=== PATIENT | female | born 1985 | race Caucasian/White ===

== ENCOUNTER 2020-03-07 12:00 | Emergency (ER) | payer OTHER, SELFPAY ==
[2020-03-07 12:09] VITALS: BP 122/64; PULSE 71; RESP 14; TEMP 36.8; O2SAT 100
--- NOTE | 2020-03-07 12:12 | ED.URI ---
HPI - URI/Sore Throat General Chief Complaint: Upper Respiratory Infection Stated Complaint: Sore Throat Time Seen by Provider: 03/07/20 12:14 Source: patient and RN notes reviewed Mode of arrival: ambulatory Limitations: no limitations History of Present Illness HPI Narrative: This is a 34 years old female presented office for evaluation of sore throat for one week. Associated with a little headache. Denies cough or fever. Denies sick contact. Related Data Home Medications Medication Instructions Recorded Confirmed No Home Medications 03/07/20 03/07/20 Allergies Allergy/AdvReac Type Severity Reaction Status Date / Time Penicillins Allergy Intermediate Rash Verified 03/07/20 12:15 Review of Systems Review of Systems: Narrative: CONSTITUTIONAL: Denies fever, chills EYES: Denies visual changes, redness, discharge. ENT: Denies rhinorrhea, congestion, otalgia. CARDIOVASCULAR: Denies chest pain, palpitation, edema. RESPIRATORY: Denies dyspnea, wheezing, cough GASTROINTESTINAL: Denies abdominal pain, nausea, vomiting SKIN: Denies rash MUSCULOSKELETAL: Denies acute back pain NEUROLOGIC: Denies lightheaded All other systems reviewed are negative, except as documented in HPI. [facility] Past Medical History Medical History Diabetes mellitus, type II Sleep apnea Surgical History Surgical History Hx of cholecystectomy Hx of tubal ligation Comments At time of signature, I 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 There is no relevant family history pertinent to the presenting complaint. Exam Narrative: Exam Narrative: GENERAL: This is a well-nourished, well-developed patient, in no apparent distress. EARS: External ears normal, auditory canals clear and without drainage, TMs normal without perforation. Hearing grossly intact. NOSE: External nose normal with no obvious nasal discharge, nares without redness, no rhinorrhea. THROAT: Mucous membranes moist, posterior pharynx not erythema/edematous however there is drainage. NECK: Neck supple, non-tender without lymphadenopathy, masses or thyromegaly. CARDIOVASCULAR: Regular rate and rhythm without murmurs, gallops, or rubs. RESPIRATORY: Clear to auscultation. Breath sounds equal bilaterally. No wheezes, rales, or rhonchi. GASTROINTESTINAL: Abdomen soft, non-tender, nondistended. Bowel sounds are active. No hepato-splenomegaly, or palpable masses. No guarding. SKIN: warm, intact with no suspicious lesions or rash, good texture and turgor. NEURO: awake, alert, and oriented to person, place and time. There were no obvious focal neurologic abnormalities. Steady gait Abdifatah Coma Scale Eye Opening: Spontaneous 4 Alligator Coma Scale Motor: Obeys Commands 6 Abdifatah Coma Scale Verbal: Oriented 5 Course Vital Signs Vital signs: Vital Signs Temperature 98.2 F 03/07/20 12:09 Pulse Rate 71 03/07/20 12:09 Respiratory Rate 14 03/07/20 12:09 Blood Pressure 122/64 03/07/20 12:09 Pulse Oximetry 100 03/07/20 12:09 Temperature 98.2 F 03/07/20 12:09 Pulse Rate 71 03/07/20 12:09 Respiratory Rate 14 03/07/20 12:09 Blood Pressure 122/64 03/07/20 12:09 Pulse Oximetry 100 03/07/20 12:09 MDM - URI/Sore Throat MDM Narrative Medical decision making narrative: Discharge instructions reviewed with patient, as well as provided in writing per nursing staff. The instructions also include specific and strict return/GO TO THE ER as well as f/u information. All questions have been answered, and the patient deny any further questions with discharge and discharge plan. Differential Diagnosis Differential diagnosis: Likely upper respiratory infection, otitis media, sinusitis, viral infection, bronchitis, influenza and pharyngitis Lab Data Attestation: I reviewed the patient's lab results. Labs: Strep Screen
== END 2020-03-07 12:32 | disposition home or self-care (01) ==
PROVIDERS: Emergency Provider Nurse Practitioner; PCP Physician Assistant
DX: J02.9 Acute pharyngitis, unspecified (principal); E11.9 Type 2 diabetes mellitus without complications; G47.30 Sleep apnea, unspecified
CPT/HCPCS: 87081; 87880; 99213; G0463

== ENCOUNTER 2021-05-10 12:32 | Emergency (ER) | payer OTHER, SELFPAY ==
--- NOTE | ~2021-05-10 | XR_ITS ---
EXAMINATION: XR hand RT min 3V DATE: 05/10/2021 12:58 INDICATION: Right hand injury and pain. TECHNIQUE: 3 views of right hand were obtained. COMPARISON: None. FINDINGS: Bone alignment is normal. There is a nondisplaced chip avulsion fracture of palmar base of fifth middle phalanx. Joint spaces are well maintained. IMPRESSION: 1. Nondisplaced chip avulsion fracture of palmar base of fifth middle phalanx. Reviewed, dictated and finalized at location A.
[2021-05-10 12:40] VITALS: BP 131/82; PULSE 89; RESP 16; TEMP 36.9; O2SAT 100
[2021-05-10 12:52] VITALS: BP 131/82; PULSE 89; RESP 16; TEMP 36.9; O2SAT 100
--- NOTE | 2021-05-10 13:07 | ED.UPPEXIN ---
HPI - Extremity Injury (Upper) General Chief Complaint: Extremity Injury, Upper Stated Complaint: R hand/wrist injury Time Seen by Provider: 05/10/21 13:11 Source: patient History of Present Illness HPI narrative: Patient presents with pain and tenderness to the base of her right fifth finger. Patient states she was moving angling up yesterday her daughter's room in the lamp fell landing on her hand. No open areas no deformity noted. MD complaint: injury to: right Related Data Home Medications Medication Instructions Recorded Confirmed bupropion HCl 150 mg PO BID 05/10/21 05/10/21 Allergies Allergy/AdvReac Type Severity Reaction Status Date / Time Penicillins Allergy Intermediate Rash Verified 05/10/21 12:48 Review of Systems Review of Systems: CONSTITUTIONAL: Denies fever, chills, or sweats. EYES: Denies visual changes, redness, or discharge. ENT: Denies rhinorrhea, congestion, sore throat, or otalgia. CARDIOVASCULAR: Denies chest pain, palpitations, or edema. RESPIRATORY: Denies cough or dyspnea. GASTROINTESTINAL: Denies abdominal pain, nausea, vomiting, or diarrhea. GENITOURINARY: Denies dysuria or hematuria. SKIN: Denies rash or itching. MUSCULOSKELETAL: Denies back pain, joint pain, or myalgia. NEUROLOGIC: Denies headache, numbness, or weakness. PSYCHIATRIC: Denies anxiety or depression. [facility] Past Medical History Medical History (Updated 05/10/21 @ 13:21 by STACI Brown) Diabetes mellitus, type II Sleep apnea Surgical History Surgical History Hx of cholecystectomy Hx of tubal ligation Comments At time of signature, 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 There is no relevant family history pertinent to the presenting complaint Exam Narrative: GENERAL: Well-appearing, well-nourished, and in no acute distress. HEAD: Normocephalic, atraumatic. EYES: PERRLA and EOMI. ENT: Nares clear, no rhinorrhea or epistaxis. Mucous membranes moist. NECK: Supple. CHEST: Clear to auscultation. No respiratory distress. HEART: Regular rate and rhythm. No murmur heard. Normal peripheral pulses. ABDOMEN: Soft, nontender, nondistended, normal active bowel sounds. EXTREMITIES: Normal range of motion. No edema. bruising tenderness to base of fifth finger no open areas no deformity SKIN: Warm, dry, no rash. NEURO: No focal deficits. Alert and oriented x3. [place] Coma Scale Eye Opening: Spontaneous 4 Abdifatah Coma Scale Motor: Obeys Commands 6 Abdifatah Coma Scale Verbal: Oriented 5 [place] Coma Scale Total 15 Course Vital Signs Vital signs: Vital Signs Temperature 36.9 C 05/10/21 12:40 Pulse Rate 89 05/10/21 12:40 Respiratory Rate 16 05/10/21 12:40 Blood Pressure 131/82 05/10/21 12:40 Pulse Oximetry 100 05/10/21 12:40 Temperature 36.9 C 05/10/21 12:52 Pulse Rate 89 05/10/21 12:52 Respiratory Rate 16 05/10/21 12:52 Blood Pressure 131/82 05/10/21 12:52 Pulse Oximetry 100 05/10/21 12:52 My blood pressure follow Please CITLALI schedule a followup visit with your personal physician for further evaluation and treatment. Including recheck and discussion of your blood pressure. If your symptoms persist, change or worsen significantly before you can contact your personal physician then please, without delay, go to the emergency department for further evaluation DISCUSSED WITH PATIENT, X-RAY FINDINGS AND THAT X-RAYS WERE NEGATIVE FOR FRACTURE OR DISLOCATIONS. X-RAYS CANNOT RULE OUT TENDON, LIGAMENT, OR SOFT TISSUE STRUCTURE INJURIES AND IF SYMPTOMS PERSIST OR WORSEN, FURTHER EVALUATION MAY BE WARRANTED FOR POTENTIAL IMAGING. ADVISED REST, ICE, COMPRESSION, AND ELEVATION. IF PRESCRIBED ANY MEDICATIONS, TAKE DIRECTED. IF PRESCRIBED MUSCLE RELAXERS, DO NOT DRINK ALCOHOL, DRIVE, OR OPERATE ANY HEAVY MACHINERY WHILE TAKING. INSTRUCTED ON WHEN TO F/U WITH PCP AND CRITICAL RED FLAGS S/S DISCUSSED TO WHEN
== END 2021-05-10 13:28 | disposition home or self-care (01) ==
PROVIDERS: Emergency Provider Nurse Practitioner Family; PCP Physician Assistant
DX: S62.656A Nondisplaced fracture of middle phalanx of right little finger, initial encounter for closed fracture (principal); W20.8XXA Other cause of strike by thrown, projected or falling object, initial encounter; E11.9 Type 2 diabetes mellitus without complications; G47.30 Sleep apnea, unspecified
CPT/HCPCS: 29130; 73130; 99214; G0463

== ENCOUNTER 2021-10-14 21:48 | Emergency (ER) | payer OTHER, SELFPAY ==
--- NOTE | ~2021-10-14 | XR_ITS ---
EXAMINATION: XR hand LT 2V DATE: 10/14/2021 22:14 INDICATION: Left hand injury with pain at the first proximal interphalangeal joint TECHNIQUE: Posteroanterior and lateral views of the left hand were obtained. COMPARISON: None. FINDINGS: Alignment is normal. No fracture. Joint spaces are normal. Soft tissues are unremarkable. IMPRESSION: 1. Negative left hand radiographs. Reviewed, dictated and finalized at location A. RAL FARMER
[2021-10-14 21:59] VITALS: BP 139/80; PULSE 96; RESP 16; TEMP 36.8; O2SAT 99
--- NOTE | 2021-10-14 22:05 | WC.ED.TRAUMA ---
HPI - Trauma General Chief Complaint: Extremity Injury, Upper Stated Complaint: HAND INJURY Time Seen by Provider: 10/14/21 22:06 Source: patient and family Mode of arrival: ambulatory History of Present Illness HPI narrative: this is a 36-year-old female who presents with an injury to her left thumb while playing vial a ball with her daughter causing pain and swelling with bruising to the lateral aspect of her left thumb has good range of motion although mildly tender with movement and with palpation has a strong brisk radial pulse on the left with no deformity. complaint: injury Onset (ago): hour(s) Loss of Consciousness: no Location - Extremities: Left: hand ( left thumb injury) Severity: mild Severity scale (1-10): 2 Context: other ( while playing volleyball) Associated symptoms: denies other symptoms Related Data Home Medications Medication Instructions Recorded Confirmed bupropion HCl 150 mg PO BID 05/10/21 10/14/21 Allergies Allergy/AdvReac Type Severity Reaction Status Date / Time Penicillins Allergy Mild Rash Verified 10/14/21 22:09 Review of Systems Review of Systems: All systems reviewed & are unremarkable except as noted in HPI and below PMFSH Past Medical History Medical History Anxiety Chronic headaches Contusion of right hand Depression Diabetes Diabetes mellitus, type II Dizziness Sleep apnea Vertigo Vision loss Surgical History Surgical History Hx of cholecystectomy Hx of tubal ligation Family History Family History Other Depression Heart disease Social History Social History Smoking status: Never smoker Alcohol intake: current Substance use: unknown 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: General: alert Orientation/consciousness: patient oriented x3 HENMT: Head: normal to inspection Eyes: Conjunctivae: conjunctivae normal Pupils: Equal, round and reactive pupils present Chest: Chest palpation & inspection: normal inspection of the chest Resp: Effort & Inspection: normal respiratory effort GI: GI Palp: Yes Soft to palpation Percussion: Yes normal to percussion : General: Yes no CVA tenderness Back/Spine/Pelvis: Back: no CVA tenderness Skin: General skin exam: normal color Rashes: no rashes Neuro: General: patient oriented x3, moves all extremities, no meningeal signs and no focal motor deficits Extrem: General: normal to inspection and no pedal edema Psych: Appearance: grossly normal Mental Status: mental status grossly normal Affect: normal affect Course Course Emergency Course: Patient declined pain medication, x-ray of the left hand was performed and reviewed with patient. Vital Signs Vital signs: Vital Signs Temperature 36.8 C 10/14/21 21:59 Pulse Rate 96 10/14/21 21:59 Respiratory Rate 16 10/14/21 21:59 Blood Pressure 139/80 10/14/21 21:59 Pulse Oximetry 99 10/14/21 21:59 Temperature 36.8 C 10/14/21 21:59 Pulse Rate 96 10/14/21 21:59 Respiratory Rate 16 10/14/21 21:59 Blood Pressure 139/80 10/14/21 21:59 Pulse Oximetry 99 10/14/21 21:59 Critical Care Time Critical Care Time Critical Care Time: No Discharge Plan Discharge Clinical Impression: Left thumb sprain Qualifiers: Encounter type: initial encounter Sprain of finger site: metacarpophalangeal joint Qualified Code(s): S63.642A - Sprain of metacarpophalangeal joint of left thumb, initial encounter Patient Disposition: Home, Self-Care Condition: Stable Instructions: Antibiotic Form, Finger Sprain (ED) Additional Instructions: can use ice to affected area Tylenol or Motrin for pain inflammation and follow-up primary care physician if symptoms persi
[2021-10-14 22:46] VITALS: BP 123/69; PULSE 72; RESP 16; TEMP 36.7; O2SAT 99
== END 2021-10-14 22:47 | disposition home or self-care (01) ==
PROVIDERS: Emergency Provider Emergency Medicine; PCP Physician Assistant
DX: S63.642A Sprain of metacarpophalangeal joint of left thumb, initial encounter (principal); W22.8XXA Striking against or struck by other objects, initial encounter
CPT/HCPCS: 73120; 99283

== ENCOUNTER 2021-12-01 13:51 | Emergency (ER) | payer OTHER, SELFPAY ==
[2021-12-01 13:55] VITALS: BP 135/79; PULSE 82; RESP 14; TEMP 36.9; O2SAT 100
--- NOTE | 2021-12-01 14:03 | ED.SKABFB ---
HPI - Skin/Abscess/Foreign Bdy General Chief complaint: Skin/Abscess/Foreign Body Stated complaint: abcess on back Time Seen by Provider: 12/01/21 14:18 Source: patient and RN notes reviewed Mode of arrival: ambulatory Limitations: no limitations History of Present Illness HPI narrative: 36-year-old female presents concern for boil to her left low back. She reports she noticed the area 4 days ago and has had some drainage. She reports the area is tender. She denies fever, body aches, chills, sweats. Patient reports history of similar abscesses for which she has had to have drained. complaint: rash and abscess/boil Related Data Home Medications Medication Instructions Recorded Confirmed bupropion HCl 150 mg PO BID 05/10/21 12/01/21 Allergies Allergy/AdvReac Type Severity Reaction Status Date / Time No Known Allergies Allergy Verified 12/01/21 14:08 Review of Systems Review of Systems: CONSTITUTIONAL: Denies malaise, chills, sweats, or fever. CARDIOVASCULAR: Denies chest pain, palpitations, or edema. RESPIRATORY: Denies cough or dyspnea. GASTROINTESTINAL: Denies abdominal pain, nausea, vomiting SKIN: Reports boil to the left low back MUSCULOSKELETAL: Denies myalgia. NEUROLOGIC: Denies headache. 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 There is no relevant family history pertinent to the presenting complaint Exam Narrative: GENERAL: Well-appearing, well-nourished, and in no acute distress. HEAD: Normocephalic, atraumatic. EYES: PERRLA, conjunctivae clear, and EOMI. ENT: Mucous membranes moist. Oropharynx without edema, erythema or lesions. NECK: Supple. No lymphadenopathy CHEST: Clear to auscultation. No respiratory distress. HEART: Regular rate and rhythm. SKIN: Warm, dry. Approximately 2 cm raised erythematous papule, firm with a central scab noted to the left low back with approximately 6 cm of erythema and induration, approximately an additional 2 cm of induration, all areas tender. No fluctuation noted NEURO: Alert and oriented x3. PSYCH: Normal mood and affect Course Course Emergency Course: No fluctuation palpable, however the abscess is felt to be deep, will incise and attempt to drain. Patient is aware of diagnosis, understands and agrees to treatment plan. Anticipatory guidance given. Patient agrees to follow-up as directed and is aware of reasons to seek care at the emergency department. Portions of this record may have been created with voice recognition software Level of Care: Express Care Visit Vital Signs Vital signs: Vital Signs Temperature 98.4 F 12/01/21 13:55 Pulse Rate 82 12/01/21 13:55 Respiratory Rate 14 12/01/21 13:55 Blood Pressure 135/79 12/01/21 13:55 Pulse Oximetry 100 12/01/21 13:55 Temperature 98.4 F 12/01/21 13:55 Pulse Rate 82 12/01/21 13:55 Respiratory Rate 14 12/01/21 13:55 Blood Pressure 135/79 12/01/21 13:55 Pulse Oximetry 100 12/01/21 13:55 Reviewed. Procedures Abscess I/D back: Date of Incision: 12/01/21 Time of Incision: 14:27
[2021-12-01 14:08] VITALS: BP 135/79; PULSE 82; RESP 14; TEMP 36.9; O2SAT 100
== END 2021-12-01 14:48 | disposition home or self-care (01) ==
PROVIDERS: Emergency Provider Nurse Practitioner; PCP Physician Assistant
DX: L02.212 Cutaneous abscess of back [any part, except buttock and flank] (principal); E11.9 Type 2 diabetes mellitus without complications; G47.30 Sleep apnea, unspecified; F41.9 Anxiety disorder, unspecified; F32.A Depression, unspecified
CPT/HCPCS: 10060; 87070; 87147; 87181; 87186; 87205; 99213; G0463

== ENCOUNTER 2023-10-04 13:11 | Emergency (ER) | payer OTHER, SELFPAY ==
[2023-10-04 13:35] VITALS: BP 139/73; PULSE 84; RESP 16; TEMP 37.3; O2SAT 99
--- NOTE | 2023-10-04 13:52 | ED.URI ---
HPI - URI/Sore Throat General Chief Complaint: Upper Respiratory Infection Stated Complaint: throat/congestion/cough History of Present Illness [facility] Narrative: Pt is a 38 y/o female, presents to with 2 day hx of nasal congestion, sore throat and dry cough, without associated fevers or chills. Her child and significant other have similar symptoms. She is not taking any OTC medications for symptom relief. She denies known influenza or COV exposures but does endorse a hx of recent strep exposure to a nephew who was positive last week. She presents with concern she may have strep. She denies chance of . She has no other complaints Related Data Allergies Allergy/AdvReac Type Severity Reaction Status Date / Time No Known Allergies Allergy Verified 12/01/21 14:08 Review of Systems ENT: Comments: refer to [facility] Past Medical History Medical History Anxiety Chronic headaches Contusion of right hand Depression Diabetes Diabetes mellitus, type II Dizziness Sleep apnea Vertigo Vision loss Surgical History Surgical History Hx of cholecystectomy Hx of tubal ligation Family History Family History Other Depression Heart disease Social History Social History Smoking status: Never smoker Alcohol intake: current Substance use: unknown Living arrangements: alone Occupation/Education: occupation 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: General: healthy appearing, no acute distress and alert Nutritional Appearance: obese Orientation/consciousness: patient oriented x3 Limitations: no limitations and altered mental status HENMT: Head: normal to inspection Ears: external ears normal and TM's normal bilaterally Face and sinus: normal facial exam and sinuses nontender Mouth: Yes Normal oral and palatal mucosa present, Yes lip normal and Yes moist mucous membranes Throat: posterior oropharynx normal and uvula midline Eyes: Conjunctivae: conjunctivae normal Pupils: Equal, round and reactive pupils present EOM: EOMs intact bilaterally Direct Ophthalmoscopy: no photophobia Neck: Neck: normal visual inspection, no lymphadenopathy and no meningeal signs Resp: Effort & Inspection: normal respiratory effort Auscultation: clear to auscultation bilaterally Cardio: Rate: regular rate Rhythm: regular rhythm Skin: General skin exam: normal color Rashes: no rashes Wounds: no wounds Neuro: General: patient oriented x3, moves all extremities, no meningeal signs, no focal motor deficits and CN's II-XI intact bilaterally Extrem: General: normal to inspection and no clubbing, cyanosis or edema Course Course Emergency Course: pt is negative for strep, exam consistent with mild viral URI, treatment is supportive. Pt is advised and agreeable with plan of care. Level of Care: Express Care Visit ([id number]) Vital Signs Vital signs: Vital Signs Temperature 37.3 C 10/04/23 13:35 Pulse Rate 84 10/04/23 13:35 Respiratory Rate 16 10/04/23 13:35 Blood Pressure 139/73 10/04/23 13:35 Pulse Oximetry 99 10/04/23 13:35 Oxygen Delivery Room Air 10/04/23 13:35 Temperature 37.3 C 10/04/23 13:35 Pulse Rate 84 10/04/23 13:35 Respiratory Rate 16 10/04/23 13:35 Blood Pressure 139/73 10/04/23 13:35 Pulse Oximetry 99 10/04/23 13:35 Oxygen Delivery Room Air 10/04/23 13:35 MDM - URI/Sore Throat MDM Narrative Medical decision making narrative: NEG strep screen, plan to treat with OTC Delsym, fluids, rest, APAP and Motrin as directed OTC for added sx relief, FU with PCP in 5 days if symptoms are not resolving, sooner if fevers arise. pt is agreeable with plan. Differential Diagnosis Differential diagnosi
== END 2023-10-04 14:01 | disposition home or self-care (01) ==
PROVIDERS: Emergency Provider Nurse Practitioner Family; PCP Physician Assistant
DX: J00 Acute nasopharyngitis [common cold] (principal); E11.9 Type 2 diabetes mellitus without complications
CPT/HCPCS: 87081; 87880; 99213; G0463

== ENCOUNTER 2024-02-25 12:57 | Emergency (ER) | payer BC, SELFPAY ==
--- NOTE | ~2024-02-25 | XR_ITS ---
XR knee RT 3V DATE: 02/25/2024 13:27 INDICATION: Fall 2 weeks ago. Peripatellar pain. TECHNIQUE: AP, lateral, sunrise views COMPARISON: None FINDINGS: Mild loss of height of medial compartment joint space. No fracture or dislocation or joint effusion. No radiopaque intra-articular loose body or chondrocalc inosis. IMPRESSION: No fracture or dislocation or joint effusion Mild loss of height of medial compartment joint space Reviewed, dictated and finalized at location A.
[2024-02-25 13:09] VITALS: BP 120/69; PULSE 85; RESP 16; TEMP 36.7; O2SAT 100
--- NOTE | 2024-02-25 13:31 | ED.LOWEXIN ---
HPI - Extremity Injury (Lower) General Chief Complaint: Extremity Injury, Lower Stated Complaint: fall, rt knee pain Time Seen by Provider: 02/25/24 13:34 Source: patient, RN notes reviewed and old records reviewed Mode of arrival: ambulatory Limitations: no limitations History of Present Illness HPI Narrative: patient presents with complaints of right knee pain ever since falling on February 08. She reports that she tripped over a curb, landed on the right knee. She reports pain has been present ever since. She reports that pain is worsening, is now radiating down the entire lower leg to the ankle. She reports pain is worse with weight-bearing. She has been taking 4-600 mg of ibuprofen 4 times daily most days, no relief. She does elevate the extremity when she is able to. She has not been using ice. She denies other injury and trauma, she voices no other concerns or complaints Related Data Allergies Allergy/AdvReac Type Severity Reaction Status Date / Time No Known Allergies Allergy Verified 12/01/21 14:08 Review of Systems Review of Systems: All systems reviewed & are unremarkable except as noted in HPI and below Constitutional: Constitutional: Reports no additional constitutional complaints ENT: Reports system reviewed and no additional complaints, except as documented Cardiovascular: Cardiovascular: Reports no additional cardiovascular complaints Respiratory: Respiratory: Reports no additional respiratory complaints Gastrointestinal: Gastrointestinal: Reports no additional gastrointestinal complaints Musculoskeletal: Musculoskeletal: Reports no additional musculoskeletal complaints and Reports as per HPI [facility] Past Medical History Medical History Anxiety Chronic headaches Contusion of right hand Depression Diabetes Diabetes mellitus, type II Dizziness Sleep apnea Vertigo Vision loss Surgical History Surgical History Hx of cholecystectomy Hx of tubal ligation Family History Family History Other Depression Heart disease Social History Social History Smoking status: Never smoker Alcohol intake: current Substance use: unknown Living arrangements: alone Occupation/Education: occupation 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 There is no relevant family history pertinent to the patient complaint. Exam Const: General: cooperative, no acute distress, alert and awake Orientation/consciousness: oriented to person, oriented to place and oriented to time HENMT: Head: normal to inspection Resp: Effort & Inspection: normal respiratory effort and able to speak in complete sentences Neuro: General: oriented to person, oriented to place and oriented to time Cranial nerves: Yes CN's II-XII intact bilaterally Extrem: Right lower extremity: full ROM and normal capillary refill Other: patient with tenderness to the entire knee area. Physical exam is difficult given body habitus Psych: Appearance: grossly normal Thought process: Normal thought process present Insight: Good insight present (Psych) Judgement: Good judgement present (Psych) Course Course Level of Care: Express Care Visit Vital Signs Vital signs: Vital Signs Temperature 98.1 F 02/25/24 13:09 Pulse Rate 85 02/25/24 13:09 Respiratory Rate 16 02/25/24 13:09 Blood Pressure 120/69 02/25/24 13:09 Pulse Oximetry 100 02/25/24 13:09 Temperature 98.1 F 02/25/24 13:09 Pulse Rate 85 02/25/24 13:09 Respiratory Rate 16 02/25/24 13:09 Blood Pressure 120/69 02/25/24 13:09 Pulse Oximetry 100 02/25/24 13:09
== END 2024-02-25 13:53 | disposition home or self-care (01) ==
PROVIDERS: Emergency Provider Nurse Practitioner Family; PCP Physician Assistant
DX: S89.91XA Unspecified injury of right lower leg, initial encounter (principal); W18.09XA Striking against other object with subsequent fall, initial encounter; E11.9 Type 2 diabetes mellitus without complications
CPT/HCPCS: 73562; 99213; G0463

== ENCOUNTER 2024-09-19 07:58 | Emergency (ER) | payer BC, SELFPAY ==
--- OUTSIDE RECORDS SUMMARY | 2024-09-19 08:02 | XMS_ITS | Clinical Summary ---
Author Organization [facility] Address [address] [place] [address] Phone Care Team Providers Care Reimbursement Liaison Name Role Phone Devin Beyer Primary Care Provider [phone] Allergies Active Allergy Reactions Criticality Noted Date Comments Penicillin G Rash 04/08/2016 Active Problems Problem Noted Date Diagnosed Date Anxiety disorder 04/08/2016 Social History Tobacco Use Types Packs/Day Years Used Date Smoking Tobacco: Never Smokeless Tobacco: Never Tobacco Cessation:Counseling Given: No Alcohol Use Standard Drinks/Week Comments Yes 0 (1 standard drink = 0.6 oz pure alcohol) PATIENT CONSUMES ALCOHOL ON THE AVERAGE OF ONCE MONTHLY, COUPLE MIXED DRINKS Sexually Active Control Partners Comments Never Surgical Male Comments Unknown Sex and Gender Information Value Date Recorded Sex Assigned at Not on file Legal Sex Female 7:49 PM CDT Gender Identity Not on file Sexual Orientation Not on file Plan of Treatment Health Maintenance Due Date Last Done Comments Hepatitis C Virus (HCV) Screening 1983 TdaP Immunization 1983 Hepatitis B Immunization (1 of 3 - 19+ 3-dose series) 2002 Pap Smear 2004 Cervical Cancer Screening (CCS) 2013 HPV/Cotest 2013 Discussion re Starting/Frequ ency of Mammograms 2023 Influenza Immunization (#1) 2024 SARS-COV-2 Immunization ( season) 2024 Respiratory Syncytial Virus (RSV) Immunization (Adult) (1 - 1-dose 75+ series) 2058 Meningococcal Immunization (ACWY) Aged Out No longer eligible based on patient's age to complete this topic Pneumococcal Immunization Combined Aged Out No longer eligible based on patient's age to complete this topic Rotavirus Immunization Aged Out No lo nger eligible based on patient's age to complete this topic Insurance MEDICAID [employer] Care Teams Reimbursement Liaison Relationship Specialty Start Date End Date Devin Beyer PAC [address] [place] [id number] PCP - General Physician [employer] 08/31/18
--- OUTSIDE RECORDS SUMMARY | 2024-09-19 08:02 | XMS_ITS | Clinical Summary ---
Author Organization [address] Address [address] [place] [address] Care Team Providers Care Stable Cleaner Name Role Phone Devin Beyer Primary Care Provider [phone] Allergies Active Allergy Reactions Criticality Noted Date Comments Penicillins Rash Reaction: Rash, Medications ibuprofen (ADVIL,MOTRIN) 600 mg tablet take 1 tablet by oral route 3 times every day with food 0 0 03/22/2016 Active cyclobenzaprine (FLEXERIL) 10 mg tabletIndicatio ns:Acute right-sided low back pain with right-sided sciatica Take 1 tablet (10 mg total) by mouth 3 (three) times a day as needed for muscle spasms 15 tablet 08/15/2024 5 Active predniSONE (DELTASONE) 20 mg tabletIndicatio ns:Acute right-sided low back pain with right-sided sciatica Take 1 tablet (20 mg) by mouth 2 (two) times a day for 5 days 10 tablet 08/15/2024 5 Active Problems No known active problems Encounters Date Type Department Care Team Description 08/15/2024 12:00 PM INSOLE PRESSER Office Visit [facility] at [address] [address] Andreia George NP Acute right-sided low back pain with right-sided sciatica (Primary Dx) from Last 3 Months Surgical History Surgery Date Site/Laterality Comments OTHER SURGICAL HISTORY leg surgery: skin graft OTHER SURGICAL HISTORY eye: surgery Medical History Medical History Date Comments Hx Other Medical leg surgery Hx Other Medical eye Social History Tobacco Use Types Packs/Day Years Used Date Smoking Tobacco: Never Alcohol Use Standard Drinks/Week Comments Yes 0 (1 standard drink = 0.6 oz pur e alcohol) Comments Unknown Sex and Gender Information Value Date Recorded Sex Assigned at Not on file Legal Sex Female 1:41 AM INSOLE PRESSER Gender Identity Not on file Sexual Orientation Not on file Obstetrics History Last Filed Vital Signs Vital Sign Reading Time Taken Comments Blood Pressure 128/76 08/15/2024 12:16 PM INSOLE PRESSER Pulse 73 08/15/2024 12:16 PM INSOLE PRESSER Temperature 36.9 C (98.4 F) 08/15/2024 12:16 PM INSOLE PRESSER Respiratory Rate 24 08/15/2024 12:16 PM INSOLE PRESSER Oxygen Saturation 97% 08/15/2024 12:16 PM INSOLE PRESSER Inhaled Oxygen Concentration - - Weight 179.6 kg (396 lb) 08/15/2024 12:16 PM INSOLE PRESSER Height 188 cm (6' 2 ) 03/22/2016 9:26 AM CDT Body Mass Index 50.84 03/22/2016 9:26 AM CDT Plan of Treatment Health Maintenance Due Date Last Done Comments Breast Cancer Screening-Mammogram 1983 Cervical Cancer Screening 1983 Depression Screening 1983 Hepatitis C Screening 1983 DTaP/Tdap/Td Vaccine (1 - Tdap) 1994 Varicella Vaccines (1 of 2 - 13+ 2-dose series) 1996 Hepatitis B Screening 2001 Regular Well Visit/Exam 18-64 2001 Covid-19 Vaccine (3 - 2023-2 5 season) 2024 10/10/2021, 09/18/2021 Influenza Vaccine (#1) 2024 HPV Vaccines Aged Out No longer eligi ble based on patient's age to complete this topic Pneumococcal vaccine <65 Aged Out No longer eligible based on patient's age to complete this topic Insurance [address] [employer] Care Teams Stable Cleaner Relationship Specialty Start Date End Date Devin Beyer PA [address] [place] [address] [facility] - General 03/22/16
--- OUTSIDE RECORDS SUMMARY | 2024-09-19 08:02 | XMS_ITS | Patient Health Summary ---
Author Organization [facility] Address [address] [place] [address] Care Team Providers Care Oil Expert Name Role Phone Devin Beyer Primary Care Provider [phone] Note from [facility],non-owned Affiliates and Associated Physician Practices is amultiple site organization consisting of ambulatory clinics and hospital sitesin [place], [place], [place] and [place]. This disclosure is being madepursuant to the Care Everywhere program and may not contain all information available regarding this patient. Last updated 18.[facility] Allergies * Penicillins(Rash) -Medium Criticality Medications * Be aware that medications may not be up to date on this document. Alwaysverify current medications with the patient. * buPROPion HCl (WELLBUTRIN SR PO) Social History Tobacco Use Types Packs/Day Years Used Date Smoking Tobacco: Never Smokeless Tobacco: Never Alcohol Use Standard Drinks/Week Comments Not Currently 0 (1 standard drink = 0.6 oz pur e alcohol) PHQ-2 Answer Date Recorded PHQ2 TOTAL SCORE 0 03/19/2021 Sex and Gender Information Value Date Recorded Sex Assigned at Not on file Gender Identity Not on file Sexual Orientation Not on file Last Filed Vital Signs Vital Sign Reading Time Taken Comments Blood Pressure 141/82 03/19/2021 8:42 AM CDT Pulse 83 03/19/2021 8:42 AM CDT Temperature 36.4 C (97.5 F) 03/19/2021 8:42 AM CDT Respiratory Rate 18 03/19/2021 8:42 AM CDT Oxygen Saturation 100% 03/19/2021 8:42 AM CDT Inhaled Oxygen Concentration - - Weight 124.7 kg (275 lb) 03/19/2021 8:42 AM CDT Height - - Body Mass Index - - Procedures * CULTURE WOUND+GRAM STAIN(Performed 03/19/2021) Performed for Abscess Results * (ABNORMAL) CULTURE WOUND+GRAM STAIN (03/19/2021 9:13 AM CDT) Culture Heavy Staphylococcus aureus methicillin-resista nt (MRSA)(A) CHAUNCEY 03/22/2021 5:12 AM CDT [facility] Comment:Staphylococcus aureu s methicillin-resistant (MRSA) detected by penicillin binding protein immunoassay. Contact precautions required. Conventional antibiotic susceptibility testing to follow. Gram Stain Moderate Polymorphonuclear cells 03/22/2021 5:12 AM T [facility] Gram Stain Light Gram-positive cocci in clusters 03/22/2021 5:12 AM T [facility] Microbiology TISSUE SPECIMEN FROM AXILLA / Unknown Collection / Unknown 03/19/2021 9:13 AM CDT 03/19/2021 9:13 AM CDT Narrative [facility] - 03/22/2021 5:12 AM CDT Methicillin-resistant Staphylococci (MRSA) are resistant to all currently available beta-lactam antibiotics with the exception of the newer cephalosporins with anti-MRSA activity. Contact precautions required. Organism Antibiotic Method Susceptibility Staphylococcus aureus methicillin-resistant (MRSA) Clindamycin CHAUNCEY 0.25 ug/mL: Susceptible Staphylococcus aureus methicillin-resistant (MRSA) Doxycycline CHAUNCEY <=0.5 ug/mL: Susceptible Staphylococcus aureus methicillin-resistant (MRSA) Gentamicin CHAUNCEY <=0.5 ug/mL: Susceptible Staphylococcus aureus methicillin-resistant (MRSA) Inducible Clindamycin Resistance CHAUNCEY NEG ug/mL: Neg Staphylococcus aureus methicillin-resistant (MRSA) Linezolid CHAUNCEY 2 ug/mL: Susceptible Staphylococcus aureus methicillin-resistant (MRSA) Oxacillin CHAUNCEY >=4 ug/mL: Resistant Staphylococcus aureus methicillin-resistant (MRSA) Tetracycline CHAUNCEY <=1 ug/mL: Susceptible Staphylococcus aureus methicillin-resistant (MRSA) Trimethoprim-sulfamethoxa zole CHAUNCEY <=10 ug/mL: Susceptible Staphylococcus aureus methicillin-resistant (MRSA) Vancomycin CHAUNCEY <=0.5 ug/mL: Susceptible Gillian Wilkinson [facility] - MICRO BIOLOGY ORDERABLES [facility] [address] [place], [place] [address], [facility] [phone] Care Teams Oil Expert Relationship Specialty Start Date End Date Devin Beyer PA [address] [place] [address] PCP - General Physician Lead Care Manager 03/19/21
--- OUTSIDE RECORDS SUMMARY | 2024-09-19 08:02 | XMS_ITS | Clinical Summary ---
Author Organization [facility] Address [address] [place] [address] Phone Care Team Providers Care Hog Worker Name Role Phone SOLOMON PHAM MD Primary Care Provider Reason for Visit and Chief Complaint The patient presents for a problem. - The Chief Complaint is: Rocephin administerd IM left glut, pttolerated well, no adverse reactions. 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 SHAKA MARTIN RN [facility] Active Last Documented On 3 8:50AM ; [facility] Plan of Treatment Pending Tests Order Diagnosis Results Due Ordering P rovider Injections Theraputic Injection Gonococcal infection, unspecified 06/17/20 SHAKA MARTIN RN [facility] Last Documented On 0 4:32PM ; [facility] Injections Theraputic Injection Acute vaginitis 06/23/20 SHAKA MARTIN RN [facility] Last Documented On 0 10:18AM ; [facility] Injections Rocephin Acute vaginitis 06/24/20 SHAKA GAGE RN [facility] Last Documented On 0 8:27AM ; [facility] Injections Theraputic Injection Acute vaginitis 06/24/20 SHAKA MARTIN RN [facility] Last Documented On 0 8:27AM ; [facility] Assessments Includes: Assessments from this encounter Findings - Vaginitis - Last Documented On 06/17/2020 4:32PM ; [facility] Medical Equipment - Implanted Devices Includes: Current Devices No Medical Equipment Recorded Medications Includes: Medications discussed during this encounter and other current Medications New / Renewed during this visit SHAKA GATICA on 06/17/2020 metroNIDAZOLE 0.75% Vaginal Gel Provider: SHAKA GATICA 5 day supply: 1 tube, 0 refills Diagnosis: Acute vaginitis as directed 1 ROHITH IN VAGINA EVERY NIGHT X 5 Pharmacy: Abbie Styles ([place] [address] [facility], [phone] - Last Documented On 0 3:40PM By SHAKA CASE ; [facility] cefTRIAXone Sodium 250 MG Injection Solution Reconstituted Provider: SHAKA GATICA 1 day supply: 250 milligram, 0 refills Diagnosi s: Gonococcal infection, unspecified as directed for IM administration Last Documented On 0 3:37PM By SHAKA CASE ; [facility] Past Medications on file metroNIDAZOLE 250 MG OR TABS 03/04/2013 - 03/11/2013 Provider: SOLOMON PHAM MD Diagnosis: TRICHOMONAL VAGI NITIS no alcohol Last Documented On 03/04/2013 5:43PM By SOLOMON PHAM MD ; [facility] Medications Administered Includes: Administered Medications from this encounter Medications Administered Diagnosis Date Pro vider cefTRIAXone Sodium 250 MG IJ SOLR 020 SHAKA GATICA administered IM left glut......ed Last Documented On 0 4:18PM By ARUNA TORRES ; [facility] Vital Signs Includes: Vital Signs from this encounter Vital Name 06/17/2020 03:32P Blood Pressure Sitting (mmHg) 110/70 Temp-Oral (F) 97.3 Height (in) 73.5 Weight (lb) 283.5 Body Mass Index (kg/m2) 36.9 Body Surface Area (m2) 2.5 Last Documented: On 06/17/2020 3:43PM ; [facility] Results Includes: Results discussed during this encounter CHLAMYDIA & GC BY DNA PROBE (SWAB ONLY) [facility] Laboratory Ordered by SHAKA GATICA on 06/11/2020 [address] [place], [address] Collected: 06/11/2020 Report ed: 06/16/2020 13:05 tel:[phone] Last Documented On 0 3:03PM ; [facility] Reviewed by SHAKA MARTIN RN [facility] on 06/16/2020; All test results are final unless otherwise noted. CHLAMYDIA TRACHOMATISRNA, TMA, UROGENITAL NOT DETECTED (NOT DETECTED) N (Normal) Last Documented On 0 2:48PM ; [facility] Note: Responsible Observer: (rahel) NEISSERIA GONORRHOEAERNA, TMA, UROGENITAL DETECTED (NOT DETECTED) A (Abnormal) Last Documented On 0 2:48PM ; [facility] Note: If results do not correlate with c linical findings,testing using an alternate molecular target whichamplifies different genetic sequences can beperformed on the same sample for result confirmationwithin 7 days of sample receipt or per performinglaboratory specimen retention policy. Alternatetarget testing is available; 35418 (C. trachomatis)or 87349 (N. gonorrhoeae).The analytical performance characteristics of thisassay, when used to test SurePath(TM) specimens have beendetermined by ufindads. The modifications havenot been cleared or approved by the FDA. This assay hasbeen validated pursuant to the CLIA regulations and isused for clinical purposes.For additional information, please refer totps://education.readness.com.[email or web address]/faq/OYR480(This link is being provided for information/educational purposes only.)THIS TEST WAS PERFORMED AT:[facility] [id number] [place] [address]SMNPLGP BECKER,DO,MPHResponsible Observer: (rahel) INFECT. CONT REPORT YES None Last Documented On 0 2:48PM ; [facility] Note: Responsible Observer: (BREANA) HERPES SIMPLEX I & II IgG [facility] Laboratory Ordered by SHAKA MARTIN RN [facility] on 06/11/2020 [address] , [place], [address] Collected: 06/11/2020 Report ed: 06/15/2020 11:31 tel: Last Documented On 0 3:03PM ; [facility] Reviewed by SHAKA MARTIN RN [facility] on 06/16/2020; All test results are final unless otherwise noted. HSV 1 IGG, TYPE SPECIFICAB 2.34 index H (High) Last Documented On 06/16/2020 12:06PM ; [facility] Note: Responsible Observer: (rfl) HSV 2 IGG, TYPE SPECIFICAB <0.90 index N (Normal) Last Documented On 06/16/2020 12:06PM ; [facility] Note: Index Interpretation ----- <0.90 Negative 0.90-1.09 Equivocal >1.09 PositiveThis assay utilizes recombinant type-specific antigensto differentiate HSV-1 from HSV-2 infections. Apositive result cannot distinguish between recent andpast infection. If recent HSV infection is suspectedbut the results are negative or equivocal, the assayshould be repeated in 4-6 weeks. The performancecharacteristics of the assay have not been establishedfor pediatric populations, immunocompromised patients,or screening.THIS TEST WAS PERFORMED AT:[facility] [id number] [place] [id number] BECKER,DO,MPHResponsible Observer: (rfl) History of Present Illness Includes: History of Present Illness from this encounter HPI HUEY LOO is a 34 year old female. - Allergy list reviewed - Medication reconciliation performed Social History Description Last Updated Marital history Single 06/17/2020 Last Documented On 0 4:32PM ; [facility] Not using alcohol 06/17/2020 Last Documented On 0 4:32PM ; [facility] Not using drugs 06/17/2020 Last Documented On 0 4:32PM ; [facility] Sexually active with 1 partners in the l ast year 06/17/2020 Last Documented On 0 4:32PM ; [facility] Smoking Status Unknown Procedures and Surgical History Surgical History Last Updated Surgical / procedural history gastric by pass 06/11/2020 Last Documented On 0 3:31PM ; [facility] Previous colposcopy 09/11/2015 Last Documented On 0 3:31PM ; [facility] History of tubal ligation 05/28/2014 Last Documented On 0 3:31PM ; [facility] Previous abnormal pap 12/25/2009 [facility] Last Documented On 0 3:31PM ; [facility] Medical History Includes: Medical History addressed during this encounter Description Last Updated LMP: 06/06/2020 07/21/2020 Last Documented On 0 3:31PM ; [facility] Result: normal 06/17/2020 Last Documented On 0 4:32PM ; [facility] History of Pap smear done 06/11/202006/2020 Last Documented On 0 4:32PM ; [facility] Vaginal delivery 09/11/2015 Last Documented On 0 3:31PM ; [facility] Sexually active 09/11/2015 Last Documented On 0 3:31PM ; [facility] Last pap smear date 05/28/2014 6 Last Documented On 0 3:31PM ; [facility] History of obesity 05/28/2014 Last Documented On 0 3:31PM ; [facility] No recent change in medical history 05/08 Last Documented On 0 3:31PM ; [facility] Contraception: BTL 05/28/2014 Last Documented On 0 3:31PM ; [facility] Pt with 10/16/2012 [facility] pap ~11/12/2012 colposcopy had no lesions seen to biopsy ~02/26/2013 normal pap with trich ~04/01/2013 no trich on wet prep 07/02/2013 Last Documented On 0 3:31PM ; [facility] Status post tubal ligation 2 012 done on 09/28/2011 at [facility] with open scope due to her size 11/12/2012 Last Documented On 0 3:31PM ; [facility] PRIMARY CARE PROVIDER : BRUCE 3 Last Documented On 0 3:31PM ; [facility] A Pap smear was performed 12/24/201008/08 Last Documented On 0 3:31PM ; [facility] Baby thriving 09/04/2011 Last Documented On 0 3:31PM ; [facility] Condoms 09/04/2011 Last Documented On 0 3:31PM ; [facility] is bottle-feeding 09/04/2011 Last Documented On 0 3:31PM ; [facility] 4 09/01/2011 Last Documented On 0 3:31PM ; [facility] Para 4 09/01/2011 Last Documented On 0 3:31PM ; [facility] She had called on 07/22/2011 with swelling and we had her come in and do PIH labs that were normal. She states the swelling went away all on it's own within a few days. It's not been a problem since. She is bottle feeding 08/15/2011 Last Documented On 0 3:31PM ; [facility] Recent 07/22/2011 Last Documented On 0 3:31PM ; [facility] Recent with pregna ncy no. 4 delivered vaginally 07/18/2011 and went home fine 07/20/2011 07/22/2011 Last Documented On 0 3:31PM ; [facility] Family History Includes: Family History addressed during this encounter Description Last Updated Paternal grandmother's histo ry of Family history of colon cancer -- paternal grand mother--- Dx'd in her 70's 09/11/2015 Last Documented On 0 3:31PM ; [facility] Paternal grandmother's histo ry of malignant neoplasm of large intestine PGM 09/11/2015 Last Documented On 0 3:31PM ; [facility] First child named Brenda 09/11/2015 Last Documented On 0 3:31PM ; [facility] Fourth child named Arnulfo 09/11/2015 Last Documented On 0 3:31PM ; [facility] Second child named Stanton 09/11/2015 Last Documented On 0 3:31PM ; [facility] Third child named Joycelyn 09/11/2015 Last Documented On 0 3:31PM ; [facility] Family history of diabetes mellitus 05/08 Last Documented On 0 3:31PM ; [facility] Family history of hypercholesterolemia F AMILY HX OF 09/01/2011 Last Documented On 0 3:31PM ; [facility] Family history of hypertension FAMILY HX OF 09/01/2011 Last Documented On 0 3:31PM ; [facility] Review of Systems Includes: Review of Systems from this encounter No Review of Systems Recorded Mental Status Includes: Mental Status from this encounter No Mental Status Recorded Functional Status Includes: Functional Status from this encounter No Functional Status Recorded Physical Exam Includes: Physical Exam from this encounter Allergies Includes: Active Allergies Substance Type Reaction Onset Date Resolved Date Statu s Penicillin V Potassium Allergy Skin Rash es / Eruption of skin, Hives / Urticaria 09/01/2011 Active Last Documented On 0 2:55PM ; [facility] Encounters Encounter Provider Location Date Check-In Time Check-Out Time Diagnosis INJECTION SHAKA MARTIN RN [facility] 06/17/2020 3:30PM 4:33PM Vaginitis Insurance Includes: Active Insurance Policies Plan Name Member ID Group # Subscriber Relationship Effect amanuel Dates - [facility] [id number] HUEY LOO Self Clinical Notes Includes: Clinical Notes from this encounter No Clinical Notes Recorded
--- OUTSIDE RECORDS SUMMARY | 2024-09-19 08:02 | XMS_ITS | Referral Summary ---
Author Organization [address] Address [address] [place] [address] Care Team Providers Care Covered Button Maker Name Role Phone Devin Beyer Primary Care Provider [phone] Encounters Date Type Department Care Team Description 08/15/2024 12:00 PM EXTRUSION MANAGER Office Visit [facility] at [address] [address] Andreia George NP Acute right-sided low back pain with right-sided sciatica (Primary Dx) from Last 3 Months Allergies Active Allergy Reactions Criticality Noted Date [...] 5 Active Problems No known active problems Social History Tobacco Use Types Packs/Day Years Used Date Smoking Tobacco: Never Alcohol Use Standard Drinks/Week Comments Yes 0 (1 standard drink = 0.6 oz pur e alcohol) Comments Unknown Sex and Gender Information Value Date Recorded Sex Assigned at Not on file Legal Sex Female 1:41 AM EXTRUSION MANAGER Gender Identity Not on file Sexual Orientation Not on file Last Filed Vital Signs Vital Sign Reading Time Taken Comments Blood Pressure 128/76 08/15/2024 12:16 PM EXTRUSION MANAGER Pulse 73 08/15/2024 12:16 PM EXTRUSION MANAGER Temperature 36.9 C (98.4 F) 08/15/2024 12:16 PM EXTRUSION MANAGER Respiratory Rate 24 08/15/2024 12:16 PM EXTRUSION MANAGER Oxygen Saturation 97% 08/15/2024 12:16 PM EXTRUSION MANAGER Inhaled Oxygen Concentration - - Weight 179.6 kg (396 lb) 08/15/2024 12:16 PM EXTRUSION MANAGER Height 188 cm (6' 2 ) 03/22/2016 9:26 AM CDT Body Mass Index 50.84 03/22/2016 9:26 AM CDT Plan of Treatment Not on file Insurance [employer] Care Teams Covered Button Maker Relationship Specialty Start Date End Date Devin Beyer PA [address] [place] [address] PCP - General 03/22/16
--- OUTSIDE RECORDS SUMMARY | 2024-09-19 08:02 | XMS_ITS | Clinical Summary ---
Author Organization [facility] Address [address] [place] [address] Care Team Providers Care National Service Officer Name Role Phone Devin Beyer Primary Care Provider [phone] Source Comments [facility],non-owned Affiliates and Associated Physician Practices is amultiple site organization consisting of ambulatory clinics and hospital sitesin [place], [place], [place] and [place]. This disclosure is being madepursuant to the Care Everywhere program and may not contain all information available regarding this patient. Last updated 18.[facility] Allergies Active Allergy Reactions Criticality Noted Date Comments Penicillins Rash Medium 01/14/2012 Reaction: Rash, Medications * Be aware that medications may not be up to date on this document. Alwaysverify current medications with the patient. Medication Sig Dispensed Refills Start Date End Date Status buPROPion HCl (WELLBUTRIN SR PO) Active Social History Tobacco Use Types Packs/Day Years [...] - - Body Mass Index - - Plan of Treatment Health Maintenance Due Date Last Done Comments LIPID TESTING 1983 MAMMOGRAM 1983 PAP SMEAR 1983 HIV SCREENING 1998 HEPATITIS C SCREENING 08/20/2001 DTAP/TDAP/TD VACCINES (1 - Tdap) 2002 HEPATITIS B VACCINE (1 of 3 - 19+ 3-dose series) 2002 COVID-19 VACCINE (2023-2 5 season) 2024 INFLUENZA VACCINE (#1) 2024 DEPRESSION SCREENING 08/07/2024 ZOSTER VACCINE (1 of 2) 2033 HIB VACCINE Aged Out No longer eligi ble based on patient's age to complete this topic HPV VACCINE Aged Out No longer eligi ble based on patient's age to complete this topic MENINGOCOCCAL (Group B) VACCINE Aged Out No longer eligible based on patient's age to complete this topic MENINGOCOCCAL VACCINE Aged Out No sheryl chayito eligible based on patient's age to complete this topic PNEUMOCOCCAL VACCINE Aged Out No long er eligible based on patient's age to complete this topic Additional Health Concerns Infection Onset Date 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
--- OUTSIDE RECORDS SUMMARY | 2024-09-19 08:02 | XMS_ITS ---
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 SHAKA MATRIN RN [facility] Active Last Documented On 3 8:50AM ; [facility] Trichomoniasis 03/13/2013 Unknown SOLOMON PHAM MD Res olved Last Documented On 3 8:50AM ; [facility] Plan of Treatment Findings Encounter Date Ordered Clinical summary pro vided to patient NEW ECHOCARDIOGRAPHY RADIOLOGY TECHNOLOGIST EXAM with SHAKA MARTIN RN [facility] 06/11/2020 Last Documented On 0 1:57PM ; [facility] Ordered weight loss diet NEW ECHOCARDIOGRAPHY RADIOLOGY TECHNOLOGIST EXAM with SHAKA MARTIN RN [facility] 06/11/2020 Last Documented On 0 1:57PM ; [facility] Ordered Clinical summary pro vided to patient ECHOCARDIOGRAPHY RADIOLOGY TECHNOLOGIST EXAM with SHAKA MARTIN RN [facility] 05/28/2014 Last Documented On 4 2:57PM ; [facility] Otherwise she is due back fo r pap smear after 12/25/2011 POST VISIT with SOLOMON PHAM MD 09/01/2011 Last Documented On 2 11:29AM ; [facility] Instructions to patient Return to the clinic if cond ition worsens or new symptoms arise Last Documented On 0 2:58PM ; [facility] Instructions for patient : B reast Self Exam discussed and technique reviewed Last Documented On 0 1:43PM ; [facility] Use a condom during sexual i ntercourse Last Documented On 0 1:43PM ; [facility] Instructed to call if excess amanuel bleeding or abdominal/pelvic pain Last Documented On 0 1:43PM ; [facility] Recommend diet and exercise at least 30 min three times per week Last Documented On 0 1:43PM ; [facility] Instructions for patient : B reast Self Exam discussed and technique reviewed Last Documented On 4 2:42PM ; [facility] Use a condom during sexual i ntercourse Last Documented On 4 2:42PM ; [facility] Instructed to call if excess amanuel bleeding or abdominal/pelvic pain Last Documented On 4 2:42PM ; [facility] Recommend diet and exercise at least 30 min three times per week Last Documented On 4 2:42PM ; [facility] Return to the clinic if cond ition worsens or new symptoms arise Last Documented On 3 8:57AM ; [facility] Instructions for patient : B reast Self Exam discussed and technique reviewed Last Documented On 3 10:56AM ; [facility] Education and Decision Aids were provided during visit for: Patient counseling : STD pre vention. I discussed with the patient that condoms can reduce the chance of getting an STD but not eliminate it. Increased exposure from multiple sex partners also discussed Last Documented On 0 2:58PM ; [facility] Patient Education: Daily james cium and vitamin D Last Documented On 0 1:43PM ; [facility] Patient Education: Daily james cium and vitamin D Last Documented On 4 2:42PM ; [facility] Patient counseling : STD pre vention. I discussed with the patient that condoms can reduce the chance of getting an STD but not eliminate it. Increased exposure from multiple sex partners also discussed Last Documented On 3 8:57AM ; [facility] INFORMED CONSENT DISCUSSION: Colposcopy was discussed in detail including risk of post procedure bleeding and infection. Patient is not to have anything in the vagina till all of the discharge stops following the procedure. Patient expressed understanding of the above and consented to the procedure Last Documented On 3 11:10AM ; [facility] Post-op teaching about wound care Last Documented On 2 4:14PM ; [facility] Post-op teaching about signs and symptoms of infection Last Documented On 2 4:14PM ; [facility] Cautioned pt about unintende d . She will use condoms till after her 6 week post tubal ligation check Last Documented On 2 11:27AM ; [facility] Counseling on sterilization procedures as above Last Documented On 2 10:33AM ; [facility] Assessments Includes: Assessments for all patient encounters Findings Encounter Date Gonococcal cervicitis CHRISTEL RECHECK with SHAKA GAGE RN [facility] 07/21/2020 Last Documented On 0 3:05PM ; [facility] Vaginitis INJECTION with SHAKA MARTIN RN [facility] 06/17/2020 Last Documented On 0 4:32PM ; [facility] NORMAL FEMALE EXAM NEW ECHOCARDIOGRAPHY RADIOLOGY TECHNOLOGIST EXAM with SHAKA MARTINEZ RN [facility] 06/11/2020 Last Documented On 0 1:57PM ; [facility] Screen malignant neoplasm cervix NEW ECHOCARDIOGRAPHY RADIOLOGY TECHNOLOGIST EXAM with SHAKA MARTIN RN [facility] 06/11/2020 Last Documented On 0 1:57PM ; [facility] Exposure to STD PROBLEM VISIT with SOLOMON [place] MD 09/11/2015 Last Documented On 6 4:24PM ; [facility] Routine gynecological exam ECHOCARDIOGRAPHY RADIOLOGY TECHNOLOGIST EXAM with SHAKA MARTIN RN [facility] 05/28/2014 Last Documented On 4 2:57PM ; [facility] Cervical Pap smear: low grad e squamous intraepithelial lesion RE-PAP with SOLOMON PHAM MD 07/02/2013 Last Documented On 3 8:59AM ; [facility] SCREENING FOR STD GENERAL OFFICE VISIT with RAMIRO MARTIN RN [facility] 04/01/2013 Last Documented On 3 8:58AM ; [facility] Cervical Pap smear: low grad e squamous intraepithelial lesion PAP SMEAR ONLY with SOLOMON PHAM MD 02/26/2013 Last Documented On 3 9:24AM ; [facility] Cervical Pap smear: low grad e squamous intraepithelial lesion COLPOSCOPY with SOLOMON PHAM MD 11/12/2012 Last Documented On 3 11:11AM ; [facility] Breast fibrocystic disease ECHOCARDIOGRAPHY RADIOLOGY TECHNOLOGIST EXAM with SOLOMON GÓMEZ MD 10/16/2012 Last Documented On 3 11:12AM ; [facility] Exposure to STD ECHOCARDIOGRAPHY RADIOLOGY TECHNOLOGIST EXAM with SOLOMON PHAM MD 10/16/2012 Last Documented On 3 11:12AM ; [facility] NORMAL FEMALE EXAM ECHOCARDIOGRAPHY RADIOLOGY TECHNOLOGIST EXAM with SOLOMON PHAM MD 10/16/2012 Last Documented On 3 11:12AM ; [facility] POST OP VISIT POST VISIT with SOLOMON VALENTE MD 11/21/2011 Last Documented On 2 6:42PM ; [facility] No postoperative infection POST OP VISIT with RAIN PHAM MD 10/13/2011 Last Documented On 2 4:26PM ; [facility] POST OP VISIT POST OP VISIT with SOLOMON [place] MD 10/13/2011 Last Documented On 2 4:26PM ; [facility] Normal routine history and p hysical - POST VISIT with SOLOMON PHAM MD 09/01/2011 Last Documented On 2 11:29AM ; [facility] Contraceptive management PROBLEM VISIT with SOLOMON PHAM MD 08/15/2011 Last Documented On 2 10:34AM ; [facility] complicated by tra nsient hypertension - condition or prior complicated delivery [Patient Encounter] with SOLOMON PHAM MD 07/22/2011 Last Documented On 1 12:55PM ; [facility] Instructions Includes: Instructions for all patient encounters Instructions to patient Return to the clinic if cond ition worsens or new symptoms arise Last Documented On 0 2:58PM ; [facility] Instructions for patient : B reast Self Exam discussed and technique reviewed Last Documented On 0 1:43PM ; [facility] Use a condom during sexual i ntercourse Last Documented On 0 1:43PM ; [facility] Instructed to call if excess amanuel bleeding or abdominal/pelvic pain Last Documented On 0 1:43PM ; [facility] Recommend diet and exercise at least 30 min three times per week Last Documented On 0 1:43PM ; [facility] Instructions for patient : B reast Self Exam discussed and technique reviewed Last Documented On 4 2:42PM ; [facility] Use a condom during sexual i ntercourse Last Documented On 4 2:42PM ; [facility] Instructed to call if excess amanuel bleeding or abdominal/pelvic pain Last Documented On 4 2:42PM ; [facility] Recommend diet and exercise at least 30 min three times per week Last Documented On 4 2:42PM ; [facility] Return to the clinic if cond ition worsens or new symptoms arise Last Documented On 3 8:57AM ; [facility] Instructions for patient : B reast Self Exam discussed and technique reviewed Last Documented On 3 10:56AM ; [facility] Education and Decision Aids were provided during visit for: Patient counseling : STD pre vention. I discussed with the patient that condoms can reduce the chance of getting an STD but not eliminate it. Increased exposure from multiple sex partners also discussed Last Documented On 0 2:58PM ; [facility] Patient Education: Daily james cium and vitamin D Last Documented On 0 1:43PM ; [facility] Patient Education: Daily james cium and vitamin D Last Documented On 4 2:42PM ; [facility] Patient counseling : STD pre vention. I discussed with the patient that condoms can reduce the chance of getting an STD but not eliminate it. Increased exposure from multiple sex partners also discussed Last Documented On 3 8:57AM ; [facility] INFORMED CONSENT DISCUSSION: Colposcopy was discussed in detail including risk of post procedure bleeding and infection. Patient is not to have anything in the vagina till all of the discharge stops following the procedure. Patient expressed understanding of the above and consented to the procedure Last Documented On 3 11:10AM ; [facility] Post-op teaching about wound care Last Documented On 2 4:14PM ; [facility] Post-op teaching about signs and symptoms of infection Last Documented On 2 4:14PM ; [facility] Cautioned pt about unintende d . She will use condoms till after her 6 week post tubal ligation check Last Documented On 2 11:27AM ; [facility] Counseling on sterilization procedures as above Last Documented On 2 10:33AM ; [facility] Medical Equipment - Implanted Devices Includes: Current and historical Devices No Medical Equipment Recorded Medications Includes: Current and historical Medications Past Medications on file metroNIDAZOLE 0.75% Vaginal Gel 06/17/2020 - 06/22/2020 Provider: SHAKA GATICA Diagnosis: Acute vaginitis as directed 1 ROHITH IN VAGINA EVERY NIGHT X 5 Last Documented On 0 3:40PM By SHAKA CASE ; [facility] cefTRIAXone Sodium 250 MG Injection Solution Reconstituted 06/17/2020 - 06/18/2020 Provider: SHAKA GATICA Diagnosis: Gonococcal infec tion, unspecified as directed for IM administration Last Documented On 0 3:37PM By SHAKA CASE ; [facility] metroNIDAZOLE 250 MG OR TABS 03/04/2013 - 03/11/2013 Provider: SOLOMON PHAM MD Diagnosis: TRICHOMONAL VAGI NITIS no alcohol Last Documented On 03/04/2013 5:43PM By SOLOMON PHAM MD ; [facility] AD OR TABS 09/01/2011 - 11/12/2012 Provider: Diagnosis: Last Documented On 3 10:43AM By CARA CHAPA MA ; [facility] Medications Administered Includes: Administered Medications in patient's chart Medications Administered Diagnosis Date Pro vider cefTRIAXone Sodium 250 MG IJ SOLR 020 SHAKA GATICA administered IM left glut......ed Last Documented On 0 4:18PM By ARUNA TORRES ; [facility] Results Includes: Results from 09/19/2023 through 09/19/2024 No Results Recorded For Specified Dates History of Present Illness History of Present Illness not supported for this document type No History of Present Illness Recorded Social History Description Last Updated Marital history Single 06/17/2020 Last Documented On 0 4:32PM ; [facility] Not using alcohol 06/17/2020 Last Documented On 0 4:32PM ; [facility] Not using drugs 06/17/2020 Last Documented On 0 4:32PM ; [facility] Sexually active with 1 partners in the l ast year 06/17/2020 Last Documented On 0 4:32PM ; [facility] Alcohol use: 2 drinks or less per day OC C 06/11/2020 Last Documented On 0 1:57PM ; [facility] Daily cola consumption 2 SODAS A DAY 12/2019 Last Documented On 0 1:57PM ; [facility] Education history 06/11/2020 Last Documented On 0 1:57PM ; [facility] In monogamous relationship 06/11/2020 Last Documented On 0 1:57PM ; [facility] No consumption of alcohol 06/11/2020 Last Documented On 0 1:57PM ; [facility] Non-smoker 06/11/2020 Last Documented On 0 1:57PM ; [facility] Personal history 06/11/2020 Last Documented On 0 1:57PM ; [facility] Sexually active 06/11/2020 Last Documented On 0 1:57PM ; [facility] Social history unchanged 06/11/2020 Last Documented On 0 1:57PM ; [facility] Smoking Status Unknown Procedures and Surgical History Surgical History Last Updated Surgical / procedural history gastric by pass 06/11/2020 Last Documented On 0 1:57PM ; [facility] Previous colposcopy 09/11/2015 Last Documented On 6 4:24PM ; [facility] History of tubal ligation 05/28/2014 Last Documented On 4 2:57PM ; [facility] Previous abnormal pap 12/25/2009 [facility] Last Documented On 3 11:12AM ; [facility] Medical History Includes: Medical History in patient's chart Description Last Updated History of acute gonorrhea 07/21/2020 Last Documented On 0 3:05PM ; [facility] LMP: 07/08/2020 07/21/2020 Last Documented On 0 3:05PM ; [facility] Result: normal 06/17/2020 Last Documented On 0 4:32PM ; [facility] History of Pap smear done 06/11/202006/2020 Last Documented On 0 4:32PM ; [facility] Vaginal delivery 09/11/2015 Last Documented On 6 4:24PM ; [facility] Sexually active 09/11/2015 Last Documented On 6 4:24PM ; [facility] Last pap smear date 05/28/2014 6 Last Documented On 6 4:24PM ; [facility] History of obesity 05/28/2014 Last Documented On 4 2:57PM ; [facility] No recent change in medical history 05/08 Last Documented On 4 2:57PM ; [facility] Contraception: BTL 05/28/2014 Last Documented On 4 2:57PM ; [facility] Result: abnormal ASCUS (-) HPV 4 Last Documented On 4 2:57PM ; [facility] Pt with 10/16/2012 [facility] pap ~11/12/2012 colposcopy had no lesions seen to biopsy ~02/26/2013 normal pap with trich ~04/01/2013 no trich on wet prep 07/02/2013 Last Documented On 3 8:59AM ; [facility] Status post tubal ligation 2 012 done on 09/28/2011 at [facility] with open scope due to her size 11/12/2012 Last Documented On 3 11:11AM ; [facility] PRIMARY CARE PROVIDER : BRUCE 3 Last Documented On 3 11:12AM ; [facility] 4 09/01/2011 Last Documented On 2 11:29AM ; [facility] Para 4 09/01/2011 Last Documented On 2 11:29AM ; [facility] Recent 07/22/2011 Last Documented On 1 12:55PM ; [facility] Family History Includes: Family History in patient's chart Description Last Updated Paternal grandmother's histo ry of Family history of colon cancer -- paternal grand mother--- Dx'd in her 70's 09/11/2015 Last Documented On 6 4:24PM ; [facility] Paternal grandmother's histo ry of malignant neoplasm of large intestine PGM 09/11/2015 Last Documented On 6 4:24PM ; [facility] First child named Brenda 09/11/2015 Last Documented On 6 4:24PM ; [facility] Fourth child named Arnulfo 09/11/2015 Last Documented On 6 4:24PM ; [facility] Second child named Stanton 09/11/2015 Last Documented On 6 4:24PM ; [facility] Third child named Joycelyn 09/11/2015 Last Documented On 6 4:24PM ; [facility] Family history unchanged 05/28/2014 Last Documented On 4 2:57PM ; [facility] Family history of diabetes mellitus 05/08 Last Documented On 4 2:57PM ; [facility] Family history of malignant neoplasm of the large intestine PGM 05/28/2014 Last Documented On 4 2:57PM ; [facility] Family history of colon canc er -- paternal grand mother--- Dx'd in her 70's 10/16/2012 Last Documented On 3 11:12AM ; [facility] No Family history of cancer breast, uter ine, or ovarian 10/16/2012 Last Documented On 3 11:12AM ; [facility] Family history of hypercholesterolemia F AMILY HX OF 09/01/2011 Last Documented On 2 11:29AM ; [facility] Family history of hypertension FAMILY HX OF 09/01/2011 Last Documented On 2 11:29AM ; [facility] No family history of uterine cancer 08/08 Last Documented On 2 11:29AM ; [facility] No heart disease 09/01/2011 Last Documented On 2 11:29AM ; [facility] Review of Systems Review of Systems not supported for this document type No Review of Systems Recorded Mental Status No Mental Status Recorded Functional Status No Functional Status Recorded Physical Exam Physical Exam not supported for this document type No Physical Exam Recorded Allergies Includes: Active, inactive, and resolved Allergies Substance Type Reaction Onset Date Resolved Date Statu s Penicillin V Potassium Allergy Skin Rash es / Eruption of skin, Hives / Urticaria 09/01/2011 Active Last Documented On 0 2:55PM ; [facility] Insurance Includes: Active Insurance Policies Plan Name Member ID Group # Subscriber Relationship Effect amanuel Dates 1 - [facility] [id number] HUEY LOO Self Clinical Notes Includes: Signed Clinical Notes starting from 08/26/2022 No Clinical Notes Recorded
--- OUTSIDE RECORDS SUMMARY | 2024-09-19 08:02 | XMS_ITS | Referral Summary ---
Author Organization [facility] Address [address] [place] [address] Care Team Providers Care Commodity Lead Name Role Phone Devin Beyer Primary Care Provider Source Comments [facility],non-owned Affiliates and Associated Physician Practices is amultiple site organization consisting of ambulatory clinics and hospital sitesin [place], [place], [place] and [place]. This disclosure is being madepursuant to the Care Everywhere program and may not contain all information available regarding this patient. 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
--- OUTSIDE RECORDS SUMMARY | 2024-09-19 08:03 | XMS_ITS | Clinical Summary ---
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 SHAKA MARTIN RN [facility] Active Last Documented On 3 8:50AM ; [facility] Plan of Treatment No Plan of Treatment Recorded Assessments Includes: Assessments from this encounter No Assessments Recorded Medical Equipment - Implanted Devices Includes: Current Devices No Medical Equipment Recorded Medications Administered Includes: Administered Medications from this encounter No Administered Medications Recorded Results Includes: Results discussed during this encounter No Results Recorded For Specified Dates History of Present Illness Includes: History of Present Illness from this encounter No History of Present Illness Recorded Social History No Social History Recorded - Smoking Status Unknown Medical History Includes: Medical History addressed during this encounter No Medical History Recorded Family History Includes: Family History addressed during this encounter No Family History Recorded Review of Systems Includes: Review of Systems from this encounter No Review of Systems Recorded Mental Status Includes: Mental Status from this encounter No Mental Status Recorded Functional Status Includes: Functional Status from this encounter No Functional Status Recorded Physical Exam Includes: Physical Exam from this encounter No Physical Exam Recorded Allergies Includes: Active Allergies Substance Type Reaction Onset Date Resolved Date Statu s Penicillin V Potassium Allergy Skin Rash es / Eruption of skin, Hives / Urticaria 09/01/2011 Active Last Documented On 0 2:55PM ; [facility] Insurance Includes: Active Insurance Policies Plan Name Member ID Group # Subscriber Relationship Effect amanuel Dates - [facility] [id number] HUEY LOO Self Clinical Notes Includes: Clinical Notes from this encounter No Clinical Notes Recorded
--- OUTSIDE RECORDS SUMMARY | 2024-09-19 08:03 | XMS_ITS | Clinical Summary ---
Author Organization [facility] Address [address] [place] [phone] Phone Care Team Providers Care Laundrette Owner Name Role Phone Unavailable Primary Care Provider Unavailabl e Allergies Active Allergy Reactions Criticality Noted Date Comments Penicillins Rash Low 01/14/2012 Medications HYDROcodone-acet aminophen (NORCO) 10-325 mg Oral Tab Take 2 Tabs by mouth every 4 hours as needed. Active cyclobenzaprine (FLEXERIL) 10 mg Oral tablet Take 10 mg by mouth 3 times daily as needed. 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 Gender Identity Not on file Sexual Orientation Not on file Last Filed Vital Signs Vital Sign Reading Time Taken Comments Blood Pressure 106/74 01/14/2012 4:08 AM CDT Pulse 82 01/14/2012 4:08 AM CDT Temperature 36.1 C (97 F) 01/14/2012 2:21 AM CDT Respiratory Rate 18 01/14/2012 4:08 AM CDT Oxygen Saturation 99% 01/14/2012 4:08 AM CDT Inhaled Oxygen Concentration - - Weight 158.8 kg (350 lb) 01/14/2012 2:21 AM CDT Height 188 cm (6' 2 ) 01/14/2012 2:21 AM CDT Body Mass Index 44.94 01/14/2012 2:21 AM CDT Plan of Treatment Health Maintenance Due Date Last Done Comments DTAP/TDAP/TD VACCINES (1 - Tdap) 2002 HEPATITIS B VACCINES (1 of 3 - 19+ 3-dose series) 2002 CERVICAL CANCER SCREENING 2013 BREAST CANCER SCREENING 2023 INFLUENZA VACCINE (#1) 2024 HPV VACCINES Aged Out No longer eligi ble based on patient's age to complete this topic PNEUMOCOCCAL VACCINE 0-64 YEARS Aged Out No longer eligible based on patient's age to complete this topic
--- OUTSIDE RECORDS SUMMARY | 2024-09-19 08:18 | XMS_ITS | Clinical Summary ---
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 - Last Documented On 06/11/2020 1:57PM ; [facility] Instructions to patient Instructions for patient : B reast Self Exam discussed and technique reviewed Last Documented On 0 1:43PM ; [facility] Use a condom during sexual i ntercourse Last Documented On 0 1:43PM ; [facility] Instructed to call if excess amanuel bleeding or abdominal/pelvic pain Last Documented On 0 1:43PM ; [facility] Recommend diet and exercise at least 30 min three times per week Last Documented On 0 1:43PM ; [facility] Education and Decision Aids were provided during visit for: Patient Education: Daily james cium and vitamin D Last Documented On 0 1:43PM ; [facility] Assessments Includes: Assessments from this encounter Findings - NORMAL FEMALE EXAM - Last Documented On 06/11/2020 1:57PM ; [facility] - Screen malignant neoplasm cervix - Last Documented On 06/11/2020 1:57PM ; [facility] Instructions Includes: Instructions from this encounter Instructions to patient Instructions for patient : B reast Self Exam discussed and technique reviewed Last Documented On 0 1:43PM ; [facility] Use a condom during sexual i ntercourse Last Documented On 0 1:43PM ; [facility] Instructed to call if excess amanuel bleeding or abdominal/pelvic pain Last Documented On 0 1:43PM ; [facility] Recommend diet and exercise at least 30 min three times per week Last Documented On 0 1:43PM ; [facility] Education and Decision Aids were provided during visit for: Patient Education: Daily james cium and vitamin D Last Documented On 0 1:43PM ; [facility] Medical Equipment - Implanted Devices Includes: Current Devices No Medical Equipment Recorded Medications Includes: Medications discussed during this encounter and other current Medications Past Medications on file metroNIDAZOLE 0.75% Vaginal Gel 06/17/2020 - 06/22/2020 Provider: SHAKA JANE Diagnosis: Acute vaginitis as directed 1 ROHITH IN VAGINA EVERY NIGHT X 5 Last Documented On 0 3:40PM By SHAKA CASE ; [facility] cefTRIAXone Sodium 250 MG Injection Solution Reconstituted 06/17/2020 - 06/18/2020 Provider: SHAKA GATICA Diagnosis: Gonococcal infec tion, unspecified as directed for IM administration Last Documented On 0 3:37PM By SHAKA CASE ; [facility] metroNIDAZOLE 250 MG OR TABS 03/04/2013 - 03/11/2013 Provider: SOLOMON PHAM MD Diagnosis: TRICHOMONAL VAGI NITIS no alcohol Last Documented On 03/04/2013 5:43PM By SOLOMON PHAM MD ; [facility] Medications Administered Includes: Administered Medications from this encounter No Administered Medications Recorded Vital Signs Includes: Vital Signs from this encounter Vital Name 06/11/2020 01:33P Blood Pressure Sitting (mmHg) 130/64 Temp-Oral (F) 98.1 Height (in) 73.5 Weight (lb) 283 Body Mass Index (kg/m2) 36.8 Body Surface Area (m2) 2.5 Last Documented: On 06/11/2020 1:36PM ; [facility] Results Includes: Results discussed during this encounter No Results Recorded For Specified Dates History of Present Illness Includes: History of Present Illness from this encounter HPI HUEY LOO is a 34 year old female. - Allergy list reviewed - Medication reconciliation performed Social History Description Last Updated Alcohol use: 2 drinks or less per day OC C 06/11/2020 Last Documented On 0 1:57PM ; [facility] Daily cola consumption 2 SODAS A DAY 12/2019 Last Documented On 0 1:57PM ; [facility] Education history 06/11/2020 Last Documented On 0 1:57PM ; [facility] In monogamous relationship 06/11/2020 Last Documented On 0 1:57PM ; [facility] No consumption of alcohol 06/11/2020 Last Documented On 0 1:57PM ; [facility] Non-smoker 06/11/2020 Last Documented On 0 1:57PM ; [facility] Personal history 06/11/2020 Last Documented On 0 1:57PM ; [facility] Sexually active 06/11/2020 Last Documented On 0 1:57PM ; [facility] Sexually active with partners in the t year 1 06/11/2020 Last Documented On 0 1:57PM ; [facility] Smoking status : Never smoker 06/11/2020 Last Documented On 0 1:57PM ; [facility] Social history unchanged 06/11/2020 Last Documented On 0 1:57PM ; [facility] Not using alcohol 06/11/2020 Last Documented On 0 1:57PM ; [facility] Not using drugs 06/11/2020 Last Documented On 0 1:57PM ; [facility] Smoking status : Never smoker 06/11/2020 Last Documented On 0 1:57PM ; [facility] Procedures and Surgical History Includes: Procedures from this encounter Procedures Code Diagnosis Performing Provider Service L ocation Service Date education and instructions Last Documented On 0 1:43PM ; [facility] explanation of plan Last Documented On 0 1:43PM ; [facility] Urged Exercise and Diet , exercise at le ast 30 min three times per week Last Documented On 0 1:43PM ; [facility] Clinical summary provided to patient Last Documented On 0 1:43PM ; [facility] cervical Pap smear [id number] Last Documented On 0 1:43PM ; [facility] Surgical History Last Updated Surgical / procedural history gastric by pass 06/11/2020 Last Documented On 0 1:57PM ; [facility] Previous colposcopy 09/11/2015 Last Documented On 0 1:16PM ; [facility] History of tubal ligation 05/28/2014 Last Documented On 0 1:16PM ; [facility] Medical History Includes: Medical History addressed during this encounter Description Last Updated History of Pap smear done 05/28/201412/2019 Last Documented On 0 1:57PM ; [facility] LMP: 06/06/2020 06/11/2020 Last Documented On 0 1:57PM ; [facility] Vaginal delivery 09/11/2015 Last Documented On 0 1:16PM ; [facility] Sexually active 09/11/2015 Last Documented On 0 1:16PM ; [facility] Last pap smear date 05/28/2014 6 Last Documented On 0 1:16PM ; [facility] History of obesity 05/28/2014 Last Documented On 0 1:16PM ; [facility] No recent change in medical history 05/08 Last Documented On 0 1:16PM ; [facility] Contraception: BTL 05/28/2014 Last Documented On 0 1:16PM ; [facility] Pt with 10/16/2012 LGSIL pap ~11/12/2012 colposcopy had no lesions seen to biopsy ~02/26/2013 normal pap with trich ~04/01/2013 no trich on wet prep 07/02/2013 Last Documented On 0 1:16PM ; [facility] Status post tubal ligation 2 012 done on 09/28/2011 [facility] with open scope due to her size 11/12/2012 Last Documented On 0 1:16PM ; [facility] PRIMARY CARE PROVIDER : BRUCE 3 Last Documented On 0 1:16PM ; [facility] A Pap smear was performed 12/24/201008/08 Last Documented On 0 1:16PM ; [facility] After visit 09/04/2011 Last Documented On 0 1:16PM ; [facility] Baby thriving 09/04/2011 Last Documented On 0 1:16PM ; [facility] Before visit 09/04/2011 Last Documented On 0 1:16PM ; [facility] Condoms 09/04/2011 Last Documented On 0 1:16PM ; [facility] is bottle-feeding 09/04/2011 Last Documented On 0 1:16PM ; [facility] 4 09/01/2011 Last Documented On 0 1:16PM ; [facility] Para 4 09/01/2011 Last Documented On 0 1:16PM ; [facility] She had called on 07/22/2011 with swelling and we had her come in and do H labs that were normal. She states the swelling went away all on it's own within a few days. It's not been a problem since. She is bottle feeding 08/15/2011 Last Documented On 0 1:16PM ; [facility] Recent 07/22/2011 Last Documented On 0 1:16PM ; [facility] Recent with pregna ncy no. 4 delivered vaginally 07/18/2011 and went home fine 07/20/2011 07/22/2011 Last Documented On 0 1:16PM ; [facility] Family History Includes: Family History addressed during this encounter Description Last Updated Paternal grandmother's histo ry of Family history of colon cancer -- paternal grand mother--- Dx'd in her 70's 09/11/2015 Last Documented On 0 1:16PM ; [facility] Paternal grandmother's histo ry of malignant neoplasm of large intestine PGM 09/11/2015 Last Documented On 0 1:16PM ; [facility] First child named Brenda 09/11/2015 Last Documented On 0 1:16PM ; [facility] Fourth child named Arnulfo 09/11/2015 Last Documented On 0 1:16PM ; [facility] Second child named Stanton 09/11/2015 Last Documented On 0 1:16PM ; [facility] Third child named Joycelyn 09/11/2015 Last Documented On 0 1:16PM ; [facility] Family history unchanged 05/28/2014 Last Documented On 0 1:16PM ; [facility] Family history of diabetes mellitus 05/08 Last Documented On 0 1:16PM ; [facility] Family history of malignant neoplasm of the large intestine PGM 05/28/2014 Last Documented On 0 1:16PM ; [facility] Family history of colon canc er -- paternal grand mother--- Dx'd in her 70's 10/16/2012 Last Documented On 0 1:16PM ; [facility] No Family history of cancer breast, uter ine, or ovarian 10/16/2012 Last Documented On 0 1:16PM ; [facility] Family history of hypercholesterolemia F AMILY HX OF 09/01/2011 Last Documented On 0 1:16PM ; [facility] Family history of hypertension FAMILY HX OF 09/01/2011 Last Documented On 0 1:16PM ; [facility] No family history of uterine cancer 08/08 Last Documented On 0 1:16PM ; [facility] No heart disease 09/01/2011 Last Documented On 0 1:16PM ; [facility] Review of Systems Includes: Review of Systems from this encounter Systemic: Feeling fine and not tiring easily. No fever, no chills, no unusual bleeding, and no recent weight change. Head: No headache. Neck: No neck pain and no swollen glands in the neck. Eyes: No vision problems. Breasts: No breast symptoms, no breast lump, no pain in breast, and patient performs self breast exams. Cardiovascular: No chest pain or discomfort, no palpitations, no intermittent leg claudication, and no varicosities. Pulmonary: No pulmonary symptoms and no dyspnea. Gastrointestinal: No heartburn and no indigestion. No nausea, no vomiting, no abdominal pain, and no melena. No diarrhea and no constipation. Genitourinary: No change in urinary frequency and no incomplete emptying of bladder. No urinary loss of control and no dysuria. No genital lesion, no pain during intercourse, and no vaginal dryness. Normal menses and no nonmenstrual bleeding. No vaginal discharge. Endocrine: No polydipsia, no hot flashes, and libido has not changed. Hematologic: No blood clotting problems. Musculoskeletal: No back pain, no muscle aches, and no localized joint pain. Neurological: No dizziness. Psychological: No anxiety, no depression, and a desire to continue living. Skin: No pruritus. No skin lesions and no rash. Allergic and Immunologic: No hay fever. Mental Status Includes: Mental Status from this encounter Description Oriented to time, place, and person No anxiety A desire to continue living Functional Status Includes: Functional Status from this encounter No Functional Status Recorded Physical Exam Includes: Physical Exam from this encounter Allergies Includes: Active Allergies Substance Type Reaction Onset Date Resolved Date Statu s Penicillin V Potassium Allergy Skin Rash es / Eruption of skin, Hives / Urticaria 09/01/2011 Active Last Documented On 0 2:55PM ; [facility] Encounters Encounter Provider Location Date Check-In Time Check-Out Time Diagnosis 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
--- OUTSIDE RECORDS SUMMARY | 2024-09-19 08:18 | XMS_ITS ---
Care Plan - [facility] Created on: September 19, 2024 EZEHUEY : 1985 Sex: Female Author Organization [facility] Address [address] [place] [address] Phone Care Team Providers Care Bag Press Operator Name Role Phone ANKIT MENDOZA, SOLOMON Love Primary Care Provider [phone]
--- OUTSIDE RECORDS SUMMARY | 2024-09-19 08:18 | XMS_ITS | Clinical Summary ---
Author Organization [facility] Address [address] [place] [address] Phone Care Team Providers Care Staffing Associate Name Role Phone SOLOMON PHAM MD Primary Care Provider Reason for Visit and Chief Complaint The patient presents for a problem. - The Chief Complaint is: Rocephin administerd IM left glut, pttolerated well, no adverse reactions. 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 SHAKA MARTIN RN [facility] Active Last Documented On 3 8:50AM ; [facility] Plan of Treatment Pending Tests Order Diagnosis Results Due Ordering P rovider Injections Theraputic Injection Gonococcal infection, unspecified 06/17/20 SHAKA MARTIN RN [facility] Last Documented On 0 4:32PM ; [facility] Injections Theraputic Injection Acute vaginitis 06/23/20 SHAKA MARTIN RN [facility] Last Documented On 0 10:18AM ; [facility] Injections Rocephin Acute vaginitis 06/24/20 SHAKA GAGE RN [facility] Last Documented On 0 8:27AM ; [facility] Injections Theraputic Injection Acute vaginitis 06/24/20 SHAKA MARTIN RN [facility] Last Documented On 0 8:27AM ; [facility] Assessments Includes: Assessments from this encounter Findings - Vaginitis - Last Documented On 06/17/2020 4:32PM ; [facility] Medical Equipment - Implanted Devices [...] NIGHT X 5 Pharmacy: Abbie Styles ([place] [address] [facility], [phone] - Last Documented On 0 3:40PM By SHAKA CASE ; [facility] cefTRIAXone Sodium 250 MG Injection Solution Reconstituted Provider: SHAKA GATICA 1 day supply: 250 milligram, 0 refills Diagnosi s: Gonococcal infection, unspecified as directed for IM administration Last Documented On 0 3:37PM By SHAKA CASE ; [facility] Past Medications on file metroNIDAZOLE 250 MG OR TABS 03/04/2013 - 03/11/2013 Provider: SOLOMON PHAM MD Diagnosis: TRICHOMONAL VAGI NITIS no alcohol Last Documented On 03/04/2013 5:43PM By SOLOMON PHAM MD ; [facility] Medications Administered Includes: Administered Medications from this encounter Medications Administered Diagnosis Date Pro vider cefTRIAXone Sodium 250 MG IJ SOLR 020 SHAKA GATICA administered IM left glut......ed Last Documented On 0 4:18PM By ARUNA TORRES ; [facility] Vital Signs Includes: Vital Signs from this encounter Vital Name 06/17/2020 03:32P Blood Pressure Sitting (mmHg) 110/70 Temp-Oral (F) 97.3 Height (in) 73.5 Weight (lb) 283.5 Body Mass Index (kg/m2) 36.9 Body Surface Area (m2) 2.5 Last Documented: On 06/17/2020 3:43PM ; [facility] Results Includes: Results discussed during this encounter CHLAMYDIA & GC BY DNA PROBE (SWAB ONLY) [facility] Laboratory Ordered by SHAKA GATICA on 06/11/2020 [address] [place], [address] Collected: 06/11/2020 Report ed: 06/16/2020 13:05 tel:[phone] Last Documented On 0 3:03PM ; [facility] Reviewed by SHAKA MARTIN RN [facility] on 06/16/2020; All test results are final unless otherwise noted. CHLAMYDIA TRACHOMATISRNA, TMA, UROGENITAL NOT DETECTED (NOT DETECTED) N (Normal) Last Documented On 0 2:48PM ; [facility] Note: Responsible Observer: (rahel) NEISSERIA GONORRHOEAERNA, TMA, UROGENITAL DETECTED (NOT DETECTED) A (Abnormal) Last Documented On 0 2:48PM ; [facility] Note: If results do not correlate with c linical findings,testing using an alternate molecular target whichamplifies different genetic sequences can beperformed on the same sample for result confirmationwithin 7 days of sample receipt or per performinglaboratory specimen retention policy. Alternatetarget testing is available; 57472 (C. trachomatis)or 96108 (N. gonorrhoeae).The analytical performance characteristics of thisassay, when used to test SurePath(TM) specimens have beendetermined by [employer]. The modifications havenot been cleared or approved by the FDA. This assay hasbeen validated pursuant to the CLIA regulations and isused for clinical purposes.For additional information, please refer totps://education.[employer]/faq/YBC354(This link is being provided for information/educational purposes only.)THIS TEST WAS PERFORMED AT:[facility] [id number] [place] [address]NDGRZYO BECKER,DO,MPHResponsible Observer: (rahel) INFECT. CONT REPORT YES None Last Documented On 0 2:48PM ; [facility] Note: Responsible Observer: (BREANA) HERPES SIMPLEX I & II IgG [facility] Laboratory Ordered by SHAKA MARTIN RN [facility] on 06/11/2020 [address] , [place], [address] Collected: 06/11/2020 Report ed: 06/15/2020 11:31 tel: Last Documented On 0 3:03PM ; [facility] Reviewed by SHAKA MARTIN RN [facility] on 06/16/2020; All test results are final unless otherwise noted. HSV 1 IGG, TYPE SPECIFICAB 2.34 index H (High) Last Documented On 06/16/2020 12:06PM ; [facility] Note: Responsible Observer: (rfl) HSV 2 IGG, TYPE SPECIFICAB <0.90 index N (Normal) Last Documented On 06/16/2020 12:06PM ; [facility] Note: Index Interpretation ----- <0.90 Negative [...] populations, immunocompromised patients,or screening.THIS TEST WAS PERFORMED AT:[facility] [id number] [place] [address]NWAYOGI BECKER,DO,MPHResponsible Observer: (rfl) History of Present Illness Includes: History of Present Illness from this encounter HPI HUEY LOO is a 34 year old female. - Allergy list reviewed - Medication reconciliation performed Social History Description Last Updated Marital history Single 06/17/2020 Last Documented On 0 4:32PM ; [facility] Not using alcohol 06/17/2020 Last Documented On 0 4:32PM ; [facility] Not using drugs 06/17/2020 Last Documented On 0 4:32PM ; [facility] Sexually active with 1 partners in the l ast year 06/17/2020 Last Documented On 0 4:32PM ; [facility] Smoking Status Unknown Procedures and Surgical History Surgical History Last Updated Surgical / procedural history gastric by pass 06/11/2020 Last Documented On 0 3:31PM ; [facility] Previous colposcopy 09/11/2015 Last Documented On 0 3:31PM ; [facility] History of tubal ligation 05/28/2014 Last Documented On 0 3:31PM ; [facility] Previous abnormal pap 12/25/2009 [facility] Last Documented On 0 3:31PM ; [facility] Medical History Includes: Medical History addressed during this encounter Description Last Updated LMP: 06/06/2020 07/21/2020 Last Documented On 0 3:31PM ; [facility] Result: normal 06/17/2020 Last Documented On 0 4:32PM ; [facility] History of Pap smear done 06/11/202006/2020 Last Documented On 0 4:32PM ; [facility] Vaginal delivery 09/11/2015 Last Documented On 0 3:31PM ; [facility] Sexually active 09/11/2015 Last Documented On 0 3:31PM ; [facility] Last pap smear date 05/28/2014 6 Last Documented On 0 3:31PM ; [facility] History of obesity 05/28/2014 Last Documented On 0 3:31PM ; [facility] No recent change in medical history 05/08 Last Documented On 0 3:31PM ; [facility] Contraception: BTL 05/28/2014 Last Documented On 0 3:31PM ; [facility] Pt with 10/16/2012 [facility] pap ~11/12/2012 colposcopy had no lesions seen to biopsy ~02/26/2013 normal pap with trich ~04/01/2013 no trich on wet prep 07/02/2013 Last Documented On 0 3:31PM ; [facility] Status post tubal ligation 2 012 done on 09/28/2011 at [facility] with open scope due to her size 11/12/2012 Last Documented On 0 3:31PM ; [facility] PRIMARY CARE PROVIDER : BRUCE 3 Last Documented On 0 3:31PM ; [facility] A Pap smear was performed 12/24/201008/08 Last Documented On 0 3:31PM ; [facility] Baby thriving 09/04/2011 Last Documented On 0 3:31PM ; [facility] Condoms 09/04/2011 Last Documented On 0 3:31PM ; [facility] is bottle-feeding 09/04/2011 Last Documented On 0 3:31PM ; [facility] 4 09/01/2011 Last Documented On 0 3:31PM ; [facility] Para 4 09/01/2011 Last Documented On 0 3:31PM ; [facility] She had called on 07/22/2011 with swelling and we had her come in and do [facility] labs that were normal. She states the swelling went away all on it's own within a few days. It's not been a problem since. She is bottle feeding 08/15/2011 Last Documented On 0 3:31PM ; [facility] Recent 07/22/2011 Last Documented On 0 3:31PM ; [facility] Recent with pregna ncy no. 4 delivered vaginally 07/18/2011 and went home fine 07/20/2011 07/22/2011 Last Documented On 0 3:31PM ; [facility] Family History Includes: Family History addressed during this encounter Description Last Updated Paternal grandmother's histo ry of Family history of colon cancer -- paternal grand mother--- Dx'd in her 70's 09/11/2015 Last Documented On 0 3:31PM ; [facility] Paternal grandmother's histo ry of malignant neoplasm of large intestine PGM 09/11/2015 Last Documented On 0 3:31PM ; [facility] First child named Brenda 09/11/2015 Last Documented On 0 3:31PM ; [facility] Fourth child named Arnulfo 09/11/2015 Last Documented On 0 3:31PM ; [facility] Second child named Stanton 09/11/2015 Last Documented On 0 3:31PM ; [facility] Third child named Joycelyn 09/11/2015 Last Documented On 0 3:31PM ; [facility] Family history of diabetes mellitus 05/08 Last Documented On 0 3:31PM ; [facility] Family history of hypercholesterolemia F AMILY HX OF 09/01/2011 Last Documented On 0 3:31PM ; [facility] Family history of hypertension FAMILY HX OF 09/01/2011 Last Documented On 0 3:31PM ; [facility] Review of Systems Includes: Review of [...] Active Last Documented On 0 2:55PM ; [facility] Encounters Encounter Provider Location Date Check-In Time Check-Out Time Diagnosis INJECTION SHAKA MARTIN RN [facility] 06/17/2020 3:30PM 4:33PM Vaginitis Insurance Includes: Active Insurance Policies Plan Name Member ID Group # Subscriber Relationship Effect amanuel Dates - [facility] [id number] HUEY LOO Self Clinical Notes Includes: Clinical Notes from this encounter No Clinical Notes Recorded
--- OUTSIDE RECORDS SUMMARY | 2024-09-19 08:18 | XMS_ITS | Clinical Summary ---
Author Organization [facility] Address [address] [place] [address] Phone Care Team Providers Care Certified Medical Aide Name Role Phone SOLOMON PHAM MD Primary Care Provider [phone] Reason for Visit and Chief Complaint The patient presents for a problem. 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 SHAKA GATICA Active Last Documented On 3 8:50AM ; [facility] Plan of Treatment No Plan of Treatment Recorded Assessments Includes: Assessments from this encounter Findings - Exposure to STD - Last Documented On 09/11/2015 4:24PM ; [facility] Medical Equipment - Implanted Devices Includes: Current Devices No Medical Equipment Recorded Medications Includes: Medications discussed during this encounter and other current Medications Past Medications on file metroNIDAZOLE 0.75% Vaginal Gel 06/17/2020 - 06/22/2020 Provider: SHAKA GATICA Diagnosis: Acute vaginitis as directed 1 ROHITH IN VAGINA EVERY NIGHT X 5 Last Documented On 0 3:40PM By SHAKA CASE ; [facility] cefTRIAXone Sodium 250 MG Injection Solution Reconstituted 06/17/2020 - 06/18/2020 Provider: SHAKA GAITCA Diagnosis: Gonococcal infec tion, unspecified as directed for IM administration Last Documented On 0 3:37PM By SHAKA CASE ; [facility] metroNIDAZOLE 250 MG OR TABS 03/04/2013 - 03/11/2013 Provider: SOLOMON PHAM MD Diagnosis: TRICHOMONAL VAGI NITIS no alcohol Last Documented On 03/04/2013 5:43PM By SOLOMON PHAM MD ; [facility] Medications Administered Includes: Administered Medications from this encounter No Administered Medications Recorded Vital Signs Includes: Vital Signs from this encounter Vital Name 09/11/2015 03:52P Blood Pressure Sitting (mmHg) 140/88 Height (in) 74 Weight (lb) 412 Body Mass Index (kg/m2) 52.9 Body Surface Area (m2) 3.0 Last Documented: On 09/11/2015 3:58PM ; [facility] Results Includes: Results discussed during this encounter No Results Recorded For Specified Dates History of Present Illness Includes: History of Present Illness from this encounter GLORIA LOO is a 30 year old female. - Medication list reviewed She denies any exposure to a specific organism. - Exposure to STD. Social History Description Last Updated Sexually active with partners in the [facility] 1 06/17/2020 Last Documented On 6 3:51PM ; [facility] Daily cola consumption 2 SODAS A DAY 12/2019 Last Documented On 6 3:51PM ; [facility] Education history 06/11/2020 Last Documented On 6 3:51PM ; [facility] In monogamous relationship 06/11/2020 Last Documented On 6 3:51PM ; [facility] No consumption of alcohol 06/11/2020 Last Documented On 6 3:51PM ; [facility] Personal history 06/11/2020 Last Documented On 6 3:51PM ; [facility] Smoking status : Never smoker 06/11/2020 Last Documented On 6 3:51PM ; [facility] Social history unchanged 06/11/2020 Last Documented On 6 3:51PM ; [facility] Procedures and Surgical History Includes: Procedures from this encounter Procedures Code Diagnosis Performing Provider Service L ocation Service Date Clinical summary provided to patient Last Documented On 6 4:16PM ; [facility] Surgical History Last Updated Previous colposcopy 09/11/2015 Last Documented On 6 4:24PM ; [facility] Previous abnormal pap 12/25/2009 [facility] Last Documented On 6 3:51PM ; [facility] Medical History Includes: Medical History addressed during this encounter Description Last Updated Result: normal wnl pap but + Trich on pa p 06/17/2020 Last Documented On 6 3:51PM ; [facility] Vaginal delivery 09/11/2015 Last Documented On 6 4:24PM ; [facility] LMP: 08/28/2015 09/11/2015 Last Documented On 6 4:24PM ; [facility] Sexually active 09/11/2015 Last Documented On 6 4:24PM ; [facility] Last pap smear date 05/28/2014 6 Last Documented On 6 4:24PM ; [facility] History of obesity 05/28/2014 Last Documented On 6 3:51PM ; [facility] Pt with 10/16/2012 LGS[facility] pap ~11/12/2012 colposcopy had no lesions seen to biopsy ~02/26/2013 normal pap with trich ~04/01/2013 no trich on wet prep 07/02/2013 Last Documented On 6 3:51PM ; [facility] Status post tubal ligation 2 012 done on 09/28/2011 at [facility] with open scope due to her size 11/12/2012 Last Documented On 6 3:51PM ; [facility] PRIMARY CARE PROVIDER : BRUCE 3 Last Documented On 6 3:51PM ; [facility] Baby thriving 09/04/2011 Last Documented On 6 3:51PM ; [facility] 4 09/01/2011 Last Documented On 6 3:51PM ; [facility] Para 4 09/01/2011 Last Documented On 6 3:51PM ; [facility] She had called on 07/22/2011 with swelling and we had her come in and do [facility] labs that were normal. She states the swelling went away all on it's own within a few days. It's not been a problem since. She is bottle feeding 08/15/2011 Last Documented On 6 3:51PM ; [facility] Recent 07/22/2011 Last Documented On 6 3:51PM ; [facility] Recent with pregna ncy no. 4 delivered vaginally 07/18/2011 and went home fine 07/20/2011 07/22/2011 Last Documented On 6 3:51PM ; [facility] Family History Includes: Family History addressed during this encounter Description Last Updated Paternal grandmother's histo ry of Family history of colon cancer -- paternal grand mother--- Dx'd in her 70's 09/11/2015 Last Documented On 6 4:24PM ; [facility] Paternal grandmother's histo ry of malignant neoplasm of large intestine PGM 09/11/2015 Last Documented On 6 4:24PM ; [facility] First child named Brenda 09/11/2015 Last Documented On 6 4:24PM ; [facility] Fourth child named Arnulfo 09/11/2015 Last Documented On 6 4:24PM ; [facility] Second child named Stanton 09/11/2015 Last Documented On 6 4:24PM ; [facility] Third child named Joycelyn 09/11/2015 Last Documented On 6 4:24PM ; [facility] Family history of diabetes mellitus 05/08 Last Documented On 6 3:51PM ; [facility] Family history of hypercholesterolemia F AMILY HX OF 09/01/2011 Last Documented On 6 3:51PM ; [facility] Family history of hypertension FAMILY HX OF 09/01/2011 Last Documented On 6 3:51PM ; [facility] Review of Systems Includes: Review of Systems [...] Active Last Documented On 0 2:55PM ; [facility] Encounters Encounter Provider Location Date Check-In Time Check-Out Time Diagnosis PROBLEM VISIT SOLOMON PHAM MD [facility] FLIGHT TECHNICIAN 09/11/19 16 3:48PM 4:39PM Exposure To Std Insurance Includes: Active Insurance Policies Plan Name Member ID Group # Subscriber Relationship Effect amanuel Dates 1 - [facility] [id number] HUEY LOO Self Clinical Notes Includes: Clinical Notes from this encounter No Clinical Notes Recorded
--- OUTSIDE RECORDS SUMMARY | 2024-09-19 08:19 | XMS_ITS | Clinical Summary ---
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 I discussed with the patient that condoms can reduce the chance of getting an STD but not eliminate it. Increased exposure from multiple sex partners also discussed Last Documented On 0 2:58PM ; [facility] Assessments Includes: Assessments from this encounter Findings - Gonococcal cervicitis CHRISTEL - Last Documented On 07/21/2020 3:05PM ; [facility] Instructions Includes: Instructions from this encounter Instructions to patient Return to the clinic if cond ition worsens or new symptoms arise Last Documented On 0 2:58PM ; [facility] Education and Decision Aids were provided during visit for: Patient counseling : STD pre vention. I discussed with the patient that condoms can reduce the chance of getting an STD but not eliminate it. Increased exposure from multiple sex partners also discussed Last Documented On 0 2:58PM ; [facility] [[email or web address]] Medical Equipment - Implanted Devices Includes: Current Devices No Medical Equipment Recorded Medications Includes: Medications discussed during this encounter and other current Medications Past Medications on file metroNIDAZOLE 0.75% Vaginal Gel 06/17/2020 - 06/22/2020 Provider: SHAKA GATICA Diagnosis: Acute vaginitis as directed 1 ROHITH IN VAGINA EVERY NIGHT X 5 Last Documented On 0 3:40PM By SHAKA CASE ; [facility] cefTRIAXone Sodium 250 MG Injection Solution Reconstituted 06/17/2020 - 06/18/2020 Provider: SHAKA GATICA Diagnosis: Gonococcal infec tion, unspecified as directed for IM administration Last Documented On 0 3:37PM By SHAKA CASE ; [facility] metroNIDAZOLE 250 MG OR TABS 03/04/2013 - 03/11/2013 Provider: SOLOMON PHAM MD Diagnosis: TRICHOMONAL VAGI NITIS no alcohol Last Documented On 03/04/2013 5:43PM By SOLOMON PHAM MD ; [facility] Medications Administered Includes: Administered Medications from this encounter No Administered Medications Recorded Vital Signs Includes: Vital Signs from this encounter Vital Name 07/21/2020 02:52P Blood Pressure Sitting (mmHg) 118/64 Temp-Oral (F) 97.3 Height (in) 73.5 Weight (lb) 278 Body Mass Index (kg/m2) 36.2 Body Surface Area (m2) 2.5 Last Documented: On 07/21/2020 2:53PM ; [facility] Results Includes: Results discussed during this encounter No Results Recorded For Specified Dates History of Present Illness Includes: History of Present Illness from this encounter GLORIA LOO is a 34 year old female. - Allergy list reviewed - Medication reconciliation performed Social History No Social History Recorded - Smoking Status Unknown Procedures and Surgical History Surgical History Last Updated Surgical / procedural history gastric by pass 06/11/2020 Last Documented On 0 2:52PM ; [facility] Previous colposcopy 09/11/2015 Last Documented On 0 2:52PM ; [facility] History of tubal ligation 05/28/2014 Last Documented On 0 2:52PM ; [facility] Previous abnormal pap 12/25/2009 [facility] Last Documented On 0 2:52PM ; [facility] Medical History Includes: Medical History addressed during this encounter Description Last Updated History of acute gonorrhea 07/21/2020 Last Documented On 0 3:05PM ; [facility] LMP: 07/08/2020 07/21/2020 Last Documented On 0 3:05PM ; [facility] Result: normal 06/17/2020 Last Documented On 0 2:52PM ; [facility] [[email or web address]] History of Pap smear done 06/11/202006/2020 Last Documented On 0 2:52PM ; [facility] Vaginal delivery 09/11/2015 Last Documented On 0 2:52PM ; [facility] Sexually active 09/11/2015 Last Documented On 0 2:52PM ; [facility] History of obesity 05/28/2014 Last Documented On 0 2:52PM ; [facility] No recent change in medical history 05/08 Last Documented On 0 2:52PM ; [facility] [[email or web address]] Contraception: BTL 05/28/2014 Last Documented On 0 2:52PM ; [facility] Pt with 10/16/2012 [facility] pap ~11/12/2012 colposcopy had no lesions seen to biopsy ~02/26/2013 normal pap with trich ~04/01/2013 no trich on wet prep 07/02/2013 Last Documented On 0 2:52PM ; [facility] [[email or web address]] Status post tubal ligation 2 012 done on 09/28/2011 at [facility] with open scope due to her size 11/12/2012 Last Documented On 0 2:52PM ; [facility] [[email or web address]] PRIMARY CARE PROVIDER : BRUCE 3 Last Documented On 0 2:52PM ; [facility] After visit 09/04/2011 Last Documented On 0 2:52PM ; [facility] Baby thriving 09/04/2011 Last Documented On 0 2:52PM ; [facility] 4 09/01/2011 Last Documented On 0 2:52PM ; [facility] Para 4 09/01/2011 Last Documented On 0 2:52PM ; [facility] She had called on 07/22/2011 with swelling and we had her come in and do [facility] labs that were normal. She states the swelling went away all on it's own within a few days. It's not been a problem since. She is bottle feeding 08/15/2011 Last Documented On 0 2:52PM ; [facility] Recent 07/22/2011 Last Documented On 0 2:52PM ; [facility] Recent with pregna ncy no. 4 delivered vaginally 07/18/2011 and went home fine 07/20/2011 07/22/2011 Last Documented On 0 2:52PM ; [facility] Family History Includes: Family History addressed during this encounter Description Last Updated Paternal grandmother's histo ry of Family history of colon cancer -- paternal grand mother--- Dx'd in her 70's 09/11/2015 Last Documented On 0 2:52PM ; [facility] Paternal grandmother's histo ry of malignant neoplasm of large intestine PGM 09/11/2015 Last Documented On 0 2:52PM ; [facility] First child named Brenda 09/11/2015 Last Documented On 0 2:52PM ; [facility] Fourth child named Arnulfo 09/11/2015 Last Documented On 0 2:52PM ; [facility] Second child named Stanton 09/11/2015 Last Documented On 0 2:52PM ; [facility] Third child named Joycelyn 09/11/2015 Last Documented On 0 2:52PM ; [facility] Family history unchanged 05/28/2014 Last Documented On 0 2:52PM ; [facility] Family history of diabetes mellitus 05/08 Last Documented On 0 2:52PM ; [facility] Family history of malignant neoplasm of the large intestine PGM 05/28/2014 Last Documented On 0 2:52PM ; [facility] Family history of colon canc er -- paternal grand mother--- Dx'd in her 70's 10/16/2012 Last Documented On 0 2:52PM ; [facility] No Family history of cancer breast, uter ine, or ovarian 10/16/2012 Last Documented On 0 2:52PM ; [facility] Family history of hypercholesterolemia F AMILY HX OF 09/01/2011 Last Documented On 0 2:52PM ; [facility] Family history of hypertension FAMILY HX OF 09/01/2011 Last Documented On 0 2:52PM ; [facility] No family history of uterine cancer 08/08 Last Documented On 0 2:52PM ; [facility] No heart disease 09/01/2011 Last Documented On 0 2:52PM ; [facility] Review of Systems Includes: Review of Systems from this encounter Systemic: No fever and no chills. Head: No headache. Eyes: No vision problems. Cardiovascular: No chest pain or discomfort. Pulmonary: No dyspnea. Gastrointestinal: No nausea, no vomiting, and no abdominal pain. Genitourinary: No increase in urinary frequency. No dysuria. Skin: No skin lesions and no rash. Mental Status Includes: Mental Status from this [...] Active Last Documented On 0 2:55PM ; [facility] Encounters Encounter Provider Location Date Check-In Time Check- Out Time Diagnosis RECHECK SHAKA MARTIN RN [facility] 0 2:30PM 3:05PM Cervicitis Gonococcus Insurance Includes: Active Insurance Policies Plan Name Member ID Group # Subscriber Relationship Effect amanuel Dates - [place] [employer] [facility] [id number] HUEY LOO Self Clinical Notes Includes: Clinical Notes from this encounter No Clinical Notes Recorded
--- OUTSIDE RECORDS SUMMARY | 2024-09-19 08:19 | XMS_ITS ---
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 SHAKA MARTIN RN [facility] Active Last Documented On 3 8:50AM ; [facility] Trichomoniasis 03/13/2013 Unknown SOLOMON PHAM MD Res olved Last Documented On 3 8:50AM ; [facility] Plan of Treatment Findings Encounter Date Ordered Clinical summary pro vided to patient NEW LEARNING ANALYST EXAM with SHAKA MARTIN RN [facility] 06/11/2020 Last Documented On 0 1:57PM ; [facility] Ordered weight loss diet NEW LEARNING ANALYST EXAM with SHAKA MARTIN RN [facility] 06/11/2020 Last Documented On 0 1:57PM ; [facility] Ordered Clinical summary pro vided to patient LEARNING ANALYST EXAM with SHAKA MARTIN RN [facility] 05/28/2014 Last Documented On 4 2:57PM ; [facility] Otherwise she is due back fo r pap smear after 12/25/2011 POST VISIT with SOLOMON PHAM MD 09/01/2011 Last Documented On 2 11:29AM ; [facility] Instructions to patient Return to the clinic if cond ition worsens or new symptoms arise Last Documented On 0 2:58PM ; [facility] Instructions for patient : B reast Self Exam discussed and technique reviewed Last Documented On 0 1:43PM ; [facility] Use a condom during sexual i ntercourse Last Documented On 0 1:43PM ; [facility] Instructed to call if excess amanuel bleeding or abdominal/pelvic pain Last Documented On 0 1:43PM ; [facility] Recommend diet and exercise at least 30 min three times per week Last Documented On 0 1:43PM ; [facility] Instructions for patient : B reast Self Exam discussed and technique reviewed Last Documented On 4 2:42PM ; [facility] Use a condom during sexual i ntercourse Last Documented On 4 2:42PM ; [facility] Instructed to call if excess amanuel bleeding or abdominal/pelvic pain Last Documented On 4 2:42PM ; [facility] Recommend diet and exercise at least 30 min three times per week Last Documented On 4 2:42PM ; [facility] Return to the clinic if cond ition worsens or new symptoms arise Last Documented On 3 8:57AM ; [facility] Instructions for patient : B reast Self Exam discussed and technique reviewed Last Documented On 3 10:56AM ; [facility] Education and Decision Aids were provided during visit for: Patient counseling : STD pre vention. I discussed with the patient that condoms can reduce the chance of getting an STD but not eliminate it. Increased exposure from multiple sex partners also discussed Last Documented On 0 2:58PM ; [facility] Patient Education: Daily james cium and vitamin D Last Documented On 0 1:43PM ; [facility] Patient Education: Daily james cium and vitamin D Last Documented On 4 2:42PM ; [facility] Patient counseling : STD pre vention. I discussed with the patient that condoms can reduce the chance of getting an STD but not eliminate it. Increased exposure from multiple sex partners also discussed Last Documented On 3 8:57AM ; [facility] INFORMED CONSENT DISCUSSION: Colposcopy was discussed in detail including risk of post procedure bleeding and infection. Patient is not to have anything in the vagina till all of the discharge stops following the procedure. Patient expressed understanding of the above and consented to the procedure Last Documented On 3 11:10AM ; [facility] Post-op teaching about wound care Last Documented On 2 4:14PM ; [facility] Post-op teaching about signs and symptoms of infection Last Documented On 2 4:14PM ; [facility] Cautioned pt about unintende d . She will use condoms till after her 6 week post tubal ligation check Last Documented On 2 11:27AM ; [facility] Counseling on sterilization procedures as above Last Documented On 2 10:33AM ; [facility] Assessments Includes: Assessments for all patient encounters Findings Encounter Date Gonococcal cervicitis CHRISTEL RECHECK with SHAKA GAGE RN [facility] 07/21/2020 Last Documented On 0 3:05PM ; [facility] Vaginitis INJECTION with SHAKA MARTIN RN [facility] 06/17/2020 Last Documented On 0 4:32PM ; [facility] NORMAL FEMALE EXAM NEW LEARNING ANALYST EXAM with SHAKA MARTINEZ RN [facility] 06/11/2020 Last Documented On 0 1:57PM ; [facility] Screen malignant neoplasm cervix NEW LEARNING ANALYST EXAM with SHAKA MARTIN RN [facility] 06/11/2020 Last Documented On 0 1:57PM ; [facility] Exposure to STD PROBLEM VISIT with SOLOMON Whitehead MD 09/11/2015 Last Documented On 6 4:24PM ; [facility] Routine gynecological exam LEARNING ANALYST EXAM with SHAKA MARTIN RN [facility] 05/28/2014 Last Documented On 4 2:57PM ; [facility] Cervical Pap smear: low grad e squamous intraepithelial lesion RE-PAP with SOLOMON PHAM MD 07/02/2013 Last Documented On 3 8:59AM ; [facility] SCREENING FOR STD GENERAL OFFICE VISIT with RAMIRO MARTIN RN [facility] 04/01/2013 Last Documented On 3 8:58AM ; [facility] Cervical Pap smear: low grad e squamous intraepithelial lesion PAP SMEAR ONLY with SOLOMON PHAM MD 02/26/2013 Last Documented On 3 9:24AM ; [facility] Cervical Pap smear: low grad e squamous intraepithelial lesion COLPOSCOPY with SOLOMON PHAM MD 11/12/2012 Last Documented On 3 11:11AM ; [facility] Breast fibrocystic disease LEARNING ANALYST EXAM with SOLOMON GÓMEZ MD 10/16/2012 Last Documented On 3 11:12AM ; [facility] Exposure to STD LEARNING ANALYST EXAM with SOLOMON PHAM MD 10/16/2012 Last Documented On 3 11:12AM ; [facility] NORMAL FEMALE EXAM LEARNING ANALYST EXAM with SOLOMON PHAM MD 10/16/2012 Last Documented On 3 11:12AM ; [facility] POST OP VISIT POST VISIT with SOLOMON VALENTE MD 11/21/2011 Last Documented On 2 6:42PM ; [facility] No postoperative infection POST OP VISIT with RAIN PHAM MD 10/13/2011 Last Documented On 2 4:26PM ; [facility] POST OP VISIT POST OP VISIT with SOLOMON Whitehead MD 10/13/2011 Last Documented On 2 4:26PM ; [facility] Normal routine history and p hysical - POST VISIT with SOLOMON PHAM MD 09/01/2011 Last Documented On 2 11:29AM ; [facility] Contraceptive management PROBLEM VISIT with SOLOMON PHAM MD 08/15/2011 Last Documented On 2 10:34AM ; [facility] complicated by tra nsient hypertension - condition or prior complicated delivery [Patient Encounter] with SOLOMON PHAM MD 07/22/2011 Last Documented On 1 12:55PM ; [facility] Instructions Includes: Instructions for all patient encounters Instructions to patient Return to the clinic if cond ition worsens or new symptoms arise Last Documented On 0 2:58PM ; [facility] Instructions for patient : B reast Self Exam discussed and technique reviewed Last Documented On 0 1:43PM ; [facility] Use a condom during sexual i ntercourse Last Documented On 0 1:43PM ; [facility] Instructed to call if excess amanuel bleeding or abdominal/pelvic pain Last Documented On 0 1:43PM ; [facility] Recommend diet and exercise at least 30 min three times per week Last Documented On 0 1:43PM ; [facility] Instructions for patient : B reast Self Exam discussed and technique reviewed Last Documented On 4 2:42PM ; [facility] Use a condom during sexual i ntercourse Last Documented On 4 2:42PM ; [facility] Instructed to call if excess amanuel bleeding or abdominal/pelvic pain Last Documented On 4 2:42PM ; [facility] Recommend diet and exercise at least 30 min three times per week Last Documented On 4 2:42PM ; [facility] Return to the clinic if cond ition worsens or new symptoms arise Last Documented On 3 8:57AM ; [facility] Instructions for patient : B reast Self Exam discussed and technique reviewed Last Documented On 3 10:56AM ; [facility] Education and Decision Aids were provided during visit for: Patient counseling : STD pre vention. I discussed with the patient that condoms can reduce the chance of getting an STD but not eliminate it. Increased exposure from multiple sex partners also discussed Last Documented On 0 2:58PM ; [facility] Patient Education: Daily james cium and vitamin D Last Documented On 0 1:43PM ; [facility] Patient Education: Daily james cium and vitamin D Last Documented On 4 2:42PM ; [facility] Patient counseling : STD pre vention. I discussed with the patient that condoms can reduce the chance of getting an STD but not eliminate it. Increased exposure from multiple sex partners also discussed Last Documented On 3 8:57AM ; [facility] INFORMED CONSENT DISCUSSION: Colposcopy was discussed in detail including risk of post procedure bleeding and infection. Patient is not to have anything in the vagina till all of the discharge stops following the procedure. Patient expressed understanding of the above and consented to the procedure Last Documented On 3 11:10AM ; [facility] Post-op teaching about wound care Last Documented On 2 4:14PM ; [facility] Post-op teaching about signs and symptoms of infection Last Documented On 2 4:14PM ; [facility] Cautioned pt about unintende d . She will use condoms till after her 6 week post tubal ligation check Last Documented On 2 11:27AM ; [facility] Counseling on sterilization procedures as above Last Documented On 2 10:33AM ; [facility] Medical Equipment - Implanted Devices Includes: Current and historical Devices No Medical Equipment Recorded Medications Includes: Current and historical Medications Past Medications on file metroNIDAZOLE 0.75% Vaginal Gel 06/17/2020 - 06/22/2020 Provider: SHAKA GATICA Diagnosis: Acute vaginitis as directed 1 ROHITH IN VAGINA EVERY NIGHT X 5 Last Documented On 0 3:40PM By SHAKA CASE ; [facility] cefTRIAXone Sodium 250 MG Injection Solution Reconstituted 06/17/2020 - 06/18/2020 Provider: SHAKA GATICA Diagnosis: Gonococcal infec tion, unspecified as directed for IM administration Last Documented On 0 3:37PM By SHAKA CASE ; [facility] metroNIDAZOLE 250 MG OR TABS 03/04/2013 - 03/11/2013 Provider: SOLOMON PHAM MD Diagnosis: TRICHOMONAL VAGI NITIS no alcohol Last Documented On 03/04/2013 5:43PM By SOLOMON PHAM MD ; [facility] AD OR TABS 09/01/2011 - 11/12/2012 Provider: Diagnosis: Last Documented On 3 10:43AM By CARA CHAPA MA ; [facility] Medications Administered Includes: Administered Medications in patient's chart Medications Administered Diagnosis Date Pro vider cefTRIAXone Sodium 250 MG IJ SOLR 020 HSAKA GATICA administered IM left glut......ed Last Documented On 0 4:18PM By ARUNA TORRES ; [facility] Results Includes: Results from 09/19/2023 through 09/19/2024 No Results Recorded For Specified Dates History of Present Illness History of Present Illness not supported for this document type No History of Present Illness Recorded Social History Description Last Updated Marital history Single 06/17/2020 Last Documented On 0 4:32PM ; [facility] Not using alcohol 06/17/2020 Last Documented On 0 4:32PM ; [facility] Not using drugs 06/17/2020 Last Documented On 0 4:32PM ; [facility] Sexually active with 1 partners in the l ast year 06/17/2020 Last Documented On 0 4:32PM ; [facility] Alcohol use: 2 drinks or less per day OC C 06/11/2020 Last Documented On 0 1:57PM ; [facility] Daily cola consumption 2 SODAS A DAY 12/2019 Last Documented On 0 1:57PM ; [facility] Education history 06/11/2020 Last Documented On 0 1:57PM ; [facility] In monogamous relationship 06/11/2020 Last Documented On 0 1:57PM ; [facility] No consumption of alcohol 06/11/2020 Last Documented On 0 1:57PM ; [facility] Non-smoker 06/11/2020 Last Documented On 0 1:57PM ; [facility] Personal history 06/11/2020 Last Documented On 0 1:57PM ; [facility] Sexually active 06/11/2020 Last Documented On 0 1:57PM ; [facility] Social history unchanged 06/11/2020 Last Documented On 0 1:57PM ; [facility] Smoking Status Unknown Procedures and Surgical History Surgical History Last Updated Surgical / procedural history gastric by pass 06/11/2020 Last Documented On 0 1:57PM ; [facility] Previous colposcopy 09/11/2015 Last Documented On 6 4:24PM ; [facility] History of tubal ligation 05/28/2014 Last Documented On 4 2:57PM ; [facility] Previous abnormal pap 12/25/2009 [facility] Last Documented On 3 11:12AM ; [facility] Medical History Includes: Medical History in patient's chart Description Last Updated History of acute gonorrhea 07/21/2020 Last Documented On 0 3:05PM ; [facility] LMP: 07/08/2020 07/21/2020 Last Documented On 0 3:05PM ; [facility] Result: normal 06/17/2020 Last Documented On 0 4:32PM ; [facility] History of Pap smear done 06/11/202006/2020 Last Documented On 0 4:32PM ; [facility] Vaginal delivery 09/11/2015 Last Documented On 6 4:24PM ; [facility] Sexually active 09/11/2015 Last Documented On 6 4:24PM ; [facility] Last pap smear date 05/28/2014 6 Last Documented On 6 4:24PM ; [facility] History of obesity 05/28/2014 Last Documented On 4 2:57PM ; [facility] No recent change in medical history 05/08 Last Documented On 4 2:57PM ; [facility] Contraception: BTL 05/28/2014 Last Documented On 4 2:57PM ; [facility] Result: abnormal ASCUS (-) HPV 4 Last Documented On 4 2:57PM ; [facility] Pt with 10/16/2012 [facility] pap ~11/12/2012 colposcopy had no lesions seen to biopsy ~02/26/2013 normal pap with trich ~04/01/2013 no trich on wet prep 07/02/2013 Last Documented On 3 8:59AM ; [facility] Status post tubal ligation 2 012 done on 09/28/2011 at [facility] with open scope due to her size 11/12/2012 Last Documented On 3 11:11AM ; [facility] PRIMARY CARE PROVIDER : BRUCE 3 Last Documented On 3 11:12AM ; [facility] 4 09/01/2011 Last Documented On 2 11:29AM ; [facility] Para 4 09/01/2011 Last Documented On 2 11:29AM ; [facility] Recent 07/22/2011 Last Documented On 1 12:55PM ; [facility] Family History Includes: Family History in patient's chart Description Last Updated Paternal grandmother's histo ry of Family history of colon cancer -- paternal grand mother--- Dx'd in her 70's 09/11/2015 Last Documented On 6 4:24PM ; [facility] Paternal grandmother's histo ry of malignant neoplasm of large intestine PGM 09/11/2015 Last Documented On 6 4:24PM ; [facility] First child named Brenda 09/11/2015 Last Documented On 6 4:24PM ; [facility] Fourth child named Arnulfo 09/11/2015 Last Documented On 6 4:24PM ; [facility] Second child named Stanton 09/11/2015 Last Documented On 6 4:24PM ; [facility] Third child named Joycelyn 09/11/2015 Last Documented On 6 4:24PM ; [facility] Family history unchanged 05/28/2014 Last Documented On 4 2:57PM ; [facility] Family history of diabetes mellitus 05/08 Last Documented On 4 2:57PM ; [facility] Family history of malignant neoplasm of the large intestine PGM 05/28/2014 Last Documented On 4 2:57PM ; [facility] Family history of colon canc er -- paternal grand mother--- Dx'd in her 70's 10/16/2012 Last Documented On 3 11:12AM ; [facility] No Family history of cancer breast, uter ine, or ovarian 10/16/2012 Last Documented On 3 11:12AM ; [facility] Family history of hypercholesterolemia F AMILY HX OF 09/01/2011 Last Documented On 2 11:29AM ; [facility] Family history of hypertension FAMILY HX OF 09/01/2011 Last Documented On 2 11:29AM ; [facility] No family history of uterine cancer 08/08 Last Documented On 2 11:29AM ; [facility] No heart disease 09/01/2011 Last Documented On 2 11:29AM ; [facility] Review of Systems Review of Systems not [...] Documented On 0 2:55PM ; [facility] Insurance Includes: Active Insurance Policies Plan Name Member ID Group # Subscriber Relationship Effect amanuel Dates 1 - [facility] [id number] HUEY LOO Self Clinical Notes Includes: Signed Clinical Notes starting from 08/26/2022 No Clinical Notes Recorded
--- OUTSIDE RECORDS SUMMARY | 2024-09-19 08:19 | XMS_ITS | Data Portability ---
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 Plan of Treatment Reminders Order Date Submit Date Provider Last Modified By Organization Details Last Modified Time Details Appointments None recorde d. Lab CMP, serum or plasma 2019 [facility], [address] [place] [address], [place] [address], [place], [address], 0 15:44:14 TSH + free T4, serum 2019 020 [facility], [address] [place] [address], [place] [address], [place], [address], 0 15:44:15 CBC 2019 020 [facility], [address] [place] [address], [place] [address], [place], [address], 0 15:44:16 lipid panel, serum [facility], [address] [place] [address], [place] [address], [place], [address], 0 15:44:16 iron + total iron-bi nding capacit y (TIBC), serum 03/04/ 2020 03/04/2 020 [facility], [address], [address], [place], [address], 0 15:44:17 Referral None recorde d. Procedures None recorde d. Surgeries None recorde d. Imaging MRI, thoraco lumbar spine, w/o contras t - xrays were negativ e in decee r for this 2020 [facility] [address] [facility] [place], [address], 1 12:16:22 XR, lumbar spine 2019 020 [facility]), 1 [facility] [place], [address], 0 17:30:19 XR, thoraci c spine 2019 020 [facility] 1 [facility] [place], [address], 0 17:32:47 Medication Orders bupropi on HCl SR 150 mg tablet, 12 hr sustain ed-rele ase 2020 [place] [id number], [address], [place], [place], [id number], 1 15:30:34 Patient TargetsNo targets recorded. Patient Instructions Encounter Date Encounter Id Patient Instructions Last Modified By Organization Details Last Modified Time 10/09/2019 [id number] body mass index: care instructions jnanney Not available 10/09/2019 15:34:37 learning about healthy weight jnanney Not available 10/09/2019 15:34:37 07/22/2020 [id number] healthy upper back: exercises jnanney Not available 07/22/2020 12:09:13 11/16/2020 [id number] fu in 2 weeks jnanney Not available 0 11/16/2020 15:30:47 Reason for Referral None Reported. Results Created Date Observation Date Name Description Value Unit Range Abnormal Flag Note LastModifiedBy Organization Detail LastModifiedTime 07/22/20 20 07/22/2020 XR, lumba r spine No observ ation record ed. [facility] (Rad[facility]) 1 [facility] [place], [address], 07/23/2020 09:27:04 07/22/20 20 07/22/2020 XR, thora cic spine No observ ation record ed. [facility] 1 [facility] [place], [address], 07/23/2020 09:27:05 05/10/20 21 05/10/2021 XR, hand, 2 view No observ ation record ed. [address] [place] [address], [address], 05/10/2021 17:48:34 10/15/19 22 10/14/2021 XR, hand, 2 view No observ ation record ed. [facility]) [address] [place] [address], [address], 10/15/2021 12:31:18 02/25/20 24 02/25/2024 XR, knee No observ ation record ed. [address] [place] [address], [address], 02/26/2024 08:58:47 Result Notes None recorded. Problems Name Problem SNOMED Code Status Onset Date Resolution Date Notes Provider Name and Address Organization Details Recorded Time Diabetes mellitus 96816473 Active 2018 MATHEW Denney, [place] - [facility] 9 13:22:20 Dizziness 853865143 Active MATHEW [place], [place] - [facility] 6 16:06:36 Pharyngitis 049270828 Active Crescencio Beyer PA-C Attn: Gilbert watson,[address] [facility], [place], [address], [place] - [facility] 6 16:18:21 Acute sinusitis 35347935 Active MATHEW [place], [place] - [facility] 6 16:06:36 Upper respiratory infection 75959193 Active Rola Chaparro MA null, [place] - [facility] 6 16:06:36 Anxiety disorder 613759047 Active Shubham Don MD Attn: Gilbert watson,[address] [facility], [place], [address], [place] - [facility] 6 18:06:36 Problem Notes None recorded. Procedures Surgical History Date Name Laterality Status Provider Name and Address Organization Details Recorded Time 06/21/20 20 Date of Last Pap Smear completed Tonia Wotrhy [place] - [place] 11/16/2020 15:04:34 12/07/19 19 tonsillectomy completed Rola Chaparro MA [facility] SI 12/24/2018 11:15:23 Arthroscopic Surgery completed Milagros Guillen MA [facility] 07/18/2014 17:15:49 Eye Surgery completed Milagros Guillen MA [facility] SI 07/18/2014 17:15:49 Imaging Results Imaging Date Name Status [facility]Modified by [facility] Details LastModified Time 07/22/2020 [facility] (Rad[facility]) [address] [place] [address] [place], [address], 07/23/2020 09:27:04 07/22/2020 XR, thoracic spine completed [address] [place], [address], 07/23/2020 09:27:05 05/10/2021 XR, hand, 2 view completed [address] [place] [address], [address], 05/10/2021 17:48:34 10/14/2021 XR, hand, 2 view completed [facility]) [address] [place] [address], [address], 10/15/2021 12:31:18 02/25/2024 XR, knee completed [address], [place], [address], 02/26/2024 08:58:47 Procedure Notes None recorded. Medical Equipment None Reported. Allergies Allergen ID Allergen Name Allergen Category Reaction Reaction Severity Criticality Documentation Date Start Date Code Code System Note Provider Name and Address Organization Details Recorded Time 8623 penicilli n G Not available rash Not available Not available 07/18/2014 7980 RxNorm Not Available Not Available Not Available Medications Name Sig Start Date Stop Date Status Note LastModified by Organization Details LastModified Time metformin 500 mg tablet TAKE 1 TABLET BY MOUTH TWICE DAILY. 10/08 completed Not Available Not Available Not Available bupropion HCl SR 150 mg tablet,12 hr sustained-r elease TAKE 1 TABLET BY MOUTH TWICE DAILY active Not Available Not Available No t Available BD Alcohol Swabs 11/16 completed Not Available Not Available Not Available clindamycin HCl 300 mg capsule 03/18 completed Not Available Not Available Not Available azithromyci n 250 mg tablet TAKE 2 TABLETS BY MOUTH FOR 1 DAY THEN TAKE 1 TABLET BY MOUTH EVERY DAY FOR 4 DAYS active Not Available Not Available No t Available acetaminoph en 120 mg-codeine 12 mg/5 mL oral solution 10/08 completed Not Available Not Available Not Available Levaquin 750 mg tablet Take 1 tablet every day by oral route for 5 days. 03/18 completed Not Available Not Available Not Available metronidazo le 0.75 % (37.5 mg/5 gram) vaginal gel U 1 APPLICATI ON VAGINALLY Q NIGHT FOR 5 DOSES UTD 11/16 completed Not Available Not Available Not Available lisinopril 20 mg tablet Take 1 tablet every day by oral route for 90 days. 08/24 completed Not Available Not Available Not Available ondansetron HCl 4 mg tablet TK 1 T PO Q 6 H PRN 11/16 completed Not Available Not Available Not Available metronidazo le 500 mg tablet 11/16 completed Not Available Not Available Not Available sulfamethox azole 800 mg-trimetho prim 160 mg tablet TAKE 1 TABLET BY MOUTH EVERY 12 HOURS FOR 7 DAYS FOR SKIN INFECTION active Not Available Not Available No t Available tramadol 50 mg tablet TAKE 1 TABLET BY MOUTH THREE TIMES DAILY active Not Available Not Available No t Available Depo-Medrol 80 mg/mL suspension for injection Take 1 mL by injection route. 08/24 completed Not Available Not Available Not Available Tessalon Perles 100 mg capsule 1 TID 01/17 completed Not Available Not Available Not Available Guaiatussin AC 10 mg-100 mg/5 mL oral liquid Take 10 mL every 4 hours by oral route for 10 days. 2014 active Not Available Not Available Not Avai lable meclizine 25 mg tablet Take 1 tablet 3 times a day by oral route as needed for 30 days. 12/11 completed Not Available Not Available Not Available prednisone 50 mg tablet TAKE 1 TABLET BY MOUTH EVERY DAY active Not Available Not Available No t Available gabapentin 300 mg capsule Take 1 capsule 3 times a day by oral route for 30 days. 08/24 completed Not Available Not Available Not Available diclofenac sodium 75 mg tablet,rudy yed release Take 1 tablet twice a day by oral route for 30 days. 08/24 completed Not Available Not Available Not Available cefuroxime axetil 500 mg tablet Take 1 tablet every 12 hours by oral route for 10 days. 2014 active Not Available Not Available Not Avai lable levofloxaci n 500 mg tablet Take 1 tablet every 24 hours by oral route for 7 days. 08/24 completed Not Available Not Available Not Available Lomotil 2.5 mg-0.025 mg tablet Take 2 tablets 4 times a day by oral route as needed for 5 days. 08/24 completed Not Available Not Available Not Available ketorolac 60 mg/2 mL intramuscul ar solution Inject 2 mL by intramusc ular route. 03/01 completed Not Available Not Available Not Available naproxen 500 mg tablet 12/11 completed Not Available Not Available Not Available enoxaparin 40 mg/0.4 mL subcutaneou s syringe 11/16 completed Not Available Not Available Not Available azithromyci n 500 mg tablet Take 1 tablet every day by oral route for 3 days. 10/08 completed Not Available Not Available Not Available OneTouch Ultra2 Meter kit 11/16 completed Not Available Not Available Not Available OneTouch Delica Lancets 33 gauge 11/16 completed Not Available Not Available Not Available Tradjenta 5 mg tablet Take 1 tablet every day by oral route for 90 days. 10/08 completed Not Available Not Available Not Available Oseni 25 mg-15 mg tablet take one tablet by mouth once daily 12/11 completed Not Available Not Available Not Available OneTouch Ultra Blue Test Strip Take 1 strip twice a day by miscell. route. 11/16 completed Not Available Not Available Not Available ID NOW COVID-19 Test Kit TEST DIRECTED active Not Available Not Available No t Available Vitals Date Recorded Body height Body mass index (BMI) Body weight Oxygen saturation Oxygen saturation in Arterial blood by Pulse oximetry Heart rate Systolic blood pressure Diastolic blood pressure Provider Name and Address Organization Details Last Updated DateTime 0 187.96 cm 39.5 kg/m2 382081. 45 g 98 % 98 % 72 /min 124 mm[Hg] 80 mm[Hg] Rola Chaparro MA [facility] 0 15:02:29 Date Recorded Body height Body temperature Oxygen saturation Oxygen saturation in Arterial blood by Pulse oximetry Heart rate Body mass index (BMI) Body weight Systolic blood pressure Diastolic blood pressure Provider Name and Address Organization Details Last Updated DateTime 1 187.96 cm 98.2 [degF] 96 % 96 % 83 /min 36.5 kg/m2 652150. 03 g 120 mm[Hg] 90 mm[Hg] Brandi Garza MA [facility] 1 11:21:23 Social History Question Answer Notes LastModified by Organizat ion Details LastModified Time Tobacco Smoking Status Never Smoker Milagros Guillen MA [facility], [facility] 07/18/2014 17:15:49 Do You Have An Advance Directive? No Information not available 11/16/2020 What Is Your Level Of Alcohol Consumption? Occasional [email or web address] Information not available 10/08/2018 Are You Blind Or Do You Have Difficulty Seeing? No Information not available 11/16/2020 What Is Your Level Of Caffeine Consumption? None Information not available 11/16/2020 In The 14 Days Before Symptom Onset, Have You Had Close Contact With A Laboratory-confir [facility] COVID-19 While That Case Was Ill? No Information not available 11/16/2020 In The 14 Days Before Symptom Onset, Have You Had Close Contact With A Person Who Is Under Investigation For COVID-19 While That Person Was Ill? No Information not available 11/16/2020 Have You Been To An Area Known To Be High Risk For COVID-19? No Information not available 11/16/2020 Are You Currently Employed? Yes Information not available 07/22/2020 Are You Deaf Or Do You Have Serious Difficulty Hearing? No Information not available 11/16/2020 What Type Of Diet Are You Following? REGULAR Information not available 07/22/2020 Do You Or Have You Ever Used E-cigarettes Or Vape? 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 No Information not available 11/16/2020 Live Alone Or With Others? With Others Information not available 07/22/2020 What Was The Date Of Your Most Recent Tobacco Screening? 12/10/2020 Information not available 12/10/2020 What Is Your Relationship Status? Single Engaged Information not available 11/16/2020 Do You Use Your Seat Belt Or Car Seat Routinely? Yes Information not available 11/16/2020 Do You Have Smoke And Carbon Monoxide Detectors In Your Home? Yes Information not available 11/16/2020 Are You Passively Exposed To Smoke? No Information no t available 11/16/2020 Do You Or Have You Ever Used Smokeless Tobacco? Never Used Smokeless Tobacco Information not available 07/22/2020 General Stress Level Medium Information not available 07/22/2020 Do You Feel Stressed (tense, Restless, Nervous, Or Anxious, Or Unable To Sleep At Night)? [id number] Information not available 11/16/2020 Do You Use Any Illicit Or Recreational Drugs? No Information not available 11/16/2020 Do You Use Sunscreen Routinely? Yes Information not available 11/16/2020 Has Tobacco Cessation Counseling Been Provided? No Information not available 11/16/2020 On What Date Was Tobacco Cessation Counseling Provided? 12/10/2020 Information not available 12/10/2020 Do You Or Have You Ever Used Any Other Forms Of Tobacco Or Nicotine? No Information not available 11/16/2020 Sex: Unknown Functional Status Question Answer Note LastModified by Organizat ion Details LastModified Time Are you able to care for yourself? Yes Information not available 07/22/2020 What is your exercise level? Occasional Information not available 11/16/2020 Mental Status None recorded. Family History Nothing Reported Notes:HX of Colon cancer, di abetes Medical History Condition Response Coronary Artery Disease N Other N High Blood Pressure N Atrial Fibrillation N Kidney or Bladder Problems N Thyroid Problems N GI Problems N Depression N COPD N Blood Clots N Skin Problems N Anemia N Heart Attack (NE) N Anxiety Disorder N Diabetes Y Muscle, Joint, or Bone Problems N Seizures/Epilepsy N Acid Reflux (GERD) N Cancer N Stroke N Asthma N Allergies N High Cholesterol N Hepatitis N Liver Disease N Headaches N Heart Failure N Osteoporosis N Gynecological History Statement/Question Response Date of Last Pap Smear 06/21/2020 Duration of Flow (days) 5 Current Control Method None Date of LMP 11/30/2020 Obstetrics History GPAL:G 0 P 0 0 0 0 Past Encounters Encounter ID Performer Location Encounter Start Date Encounter Closed Date Diagnosis/Indication Diagnosis SNOMED-CT Code Diagnosis ICD10 Code Diagnosis Note [id number] [facility] [address] [place] [address] 07/18/2014 17:09:54 07/21/2014 15:53:33 Acute sinusitis 29308822 [id number] Crescencio Beyer PA-C [facility] [address] [place] [address] 12/26/2014 15:41:34 12/30/2014 10:23:49 Dizziness 930610766 [id number] Yanether Vásquez [facility] [address] [place] [address] 03/27/2015 11:11:54 03/27/2015 11:43:28 Pharyngitis 462423719 [id number] Yanet Vásquez [facility] [address] [place] [address] 07/08/2015 11:55:41 07/08/2015 12:17:10 Upper respiratory infection 90539699 J06.9 [id number] Crescencio Beyer PA-C [facility] [address] [place] [address] 11/09/2015 15:55:28 11/09/2015 16:31:19 Pharyngitis 006044919 J02.9 [id number] Shubham Don MD [facility] [address] [place] [address] 03/29/2016 11:43:21 03/29/2016 17:38:55 Anxiety disorder 533675297 F41.9 [id number] Crescencio Beyer PA-C [facility] [address] [place] [address] 01/17/2017 16:54:48 01/18/2017 09:47:06 Diabetes mellitus 50990015 E11.9 [id number] Crescencio Beyer PA-C [facility] [address] [place] [address] 01/20/2017 15:22:30 01/20/2017 16:58:07 Benign paroxysmal positional vertigo 088723952 H81.11 Type 2 sukhwinder betes mellitus 22749582 E11.9 [id number] Crescencio Beyer PA-C [facility] [address] [place] [address] 01/30/2017 16:47:27 01/31/2017 11:53:25 [facility] 987199094 R11.0 Type 2 sukhwinder betes mellitus 43002072 E11.9 [id number] Crescencio Beyer PA-C [facility] [address] [place] [address] 03/22/2017 15:55:31 03/22/2017 17:01:11 Diabetes mellitus 85781750 E11.9 [id number] Crescencio Beyer PA-C [facility] [address] [place] [address] 04/11/2017 16:38:07 04/11/2017 18:32:50 Type 2 diabetes mellitus 69545419 E11.9 Essential hypertension 85722070 I10 [id number] Michelle Adkins MA [facility] [address] [place] [address] 12/11/2017 15:40:46 12/11/2017 17:12:44 Acute low back pain 244068042 M54.5 [id number] [facility] [address] [place] [address] 12/22/2017 15:56:02 12/22/2017 16:54:32 Streptococcal sore throat 34996472 J02.0 [id number] [facility] [address] [place] [address] 02/06/2018 13:56:43 02/06/2018 14:42:46 Viral gastroenteritis 156187030 A08.4 Essential hypertension 10059962 I10 Type 2 sukhwinder betes mellitus 70068912 E11.9 [id number] Crescencio Beyer PA-C [facility] [address] [place] [address] 02/13/2018 17:52:46 02/13/2018 19:06:20 Type 2 diabetes mellitus 14651844 E11.9 [id number] Crescencio Beyer PA-C [facility] [address] [place] [address] 02/26/2018 11:17:26 02/26/2018 12:22:07 Acute right otitis media 025997233 H65.01 Morbid obesity 178182544 E66.01 Body mass index 40+ - severely obese 965241925 Z68.43 [id number] [facility] [address] [place] [address] 03/01/2018 10:30:47 03/01/2018 11:01:47 Lumbago with sciatica 976592306 M54.41 [id number] [facility] [address] [place] [address] 08/24/2018 10:40:11 08/24/2018 11:31:14 Diabetes mellitus 47091476 E11.9 [id number] [facility] [address] [place] [address] 08/30/2018 18:20:13 08/30/2018 18:56:58 Type 2 diabetes mellitus 21509425 E11.9 Morbid obesity 790387166 E66.01 Epigastric pain 94040332 R10.13 [id number] Crescencio Beyer PA-C [facility] [address] [place] [address] 10/08/2018 10:00:43 10/08/2018 10:32:41 Recurrent acute tonsillitis 824298780 J03.91 [id number] Crescencio Beyer PA-C [facility] [address] [place] [address] 04/30/2019 18:00:14 04/30/2019 19:28:22 Diabetes mellitus 29567355 E11.9 Body mass index 40+ - severely obese 832163013 Z68.43 [id number] Crescencio Beyer PA-C [facility] [address] [place] [address] 10/09/2019 14:55:29 10/09/2019 16:19:01 Body mass index 40+ - severely obese 253826309 Z68.43 Fatigue 13125008 R53.83 [id number] Crescencio Beyer PA-C [facility] [address] [place] [address] 07/22/2020 11:07:46 07/22/2020 13:08:18 Acute low back pain 291535911 M54.5 Thoracic back pain 66267 8004 M54.6 [id number] Crescencio Beyer PA-C [facility] [address] [place] [address] 11/16/2020 09:34:42 11/17/2020 09:17:46 Diabetes mellitus 48010273 E11.9 Chronic depression 91735 0009 F34.1 [id number] Crescencio Beyer PA-C [facility] [address] [place] [address] 12/02/2020 09:19:12 12/02/2020 15:24:16 Chronic depression 311181796 F34.1 [id number] Brandi Garza MA [facility] [address] [place] [address] 12/10/2020 11:14:28 12/12/2020 13:10:16 Pain in thoracic spine 742602297 M54.05 Health Concerns Section Related Observation LastModified by Organization Detai ls LastModified Time None Recorded Concern Status LastModified by Organization Details LastModified Time None Recorded Advance Directives Directive N: Payers Encounter Date Sequence Insurance Name Policy Number Policy Badillo Covered Member ID Badillo Member ID Guarantor Name 10/09/2019 1 [facility] PRIOR TO 02/04/2021 (MEDICAID REPLACEMENT - HMO) Graciela Shepherd [id number] Graciela Joao 07/22/2020 1 [facility] PRIOR TO 02/04/2021 (MEDICAID REPLACEMENT - HMO) Graciela Shepherd [id number] Graciela Shepherd 11/16/2020 1 [facility] PRIOR TO 02/04/2021 (MEDICAID REPLACEMENT - HMO) Graciela Shepherd [id number] Graciela Shepherd 12/02/2020 1 [facility] PRIOR TO 02/04/2021 (MEDICAID REPLACEMENT - HMO) Graciela Shepherd [id number] Graciela Joao 12/10/2020 1 [facility] PRIOR TO 02/04/2021 (MEDICAID REPLACEMENT - HMO) Graciela Shepherd [id number] Graciela Shepherd Notes Date Note Type Note Provider Name and Address Organization Details Recorded Time 10/09/2019 text/html 34 y/o female presents with difficulty focusing and staying on task x 1 month. States [facility] that this could be complication of gastric sleeve surgery done in July 2019. Eating ~1,000 calories per day. No fever, nausea, vomiting, headache, vision changes. Crescencio Beyer PA-C Attn: Accounting, [address] [facility], [place], [address], [facility] - [facility] 10/09/2019 15:37:18 07/22/2020 text/html at the end of may she slipped and fell down in a seated manner and had an immediate jolt in back in her low and middle....had the gastric sleeve also Crescencio Beyer PA-C Attn: Accounting,[address], [place], [address], [facility] 07/22/2020 12:12:19 11/16/2020 text/html anxiety and depression getting worse lately...no new stressors...always had anxiety...the depression is somewhat new...just feeling sad for no reason...even a therapist has been no help Crescencio Beyer PA-C Attn: Accounting,[address], [place], [address], [facility] 11/16/2020 15:32:34 12/02/2020 text/html The patient presents for telehealth visit for follow-up after starting bupropion. She says she is doing better and has less frequent issues. She says she had an episode of low blood sugar, which she took and was 64. She felt fatigued and could not stay awake. She says there were no changes to diet or activity prior to the episode. She ate 3-4 chocolate chip cookies to raise her blood sugar back up. She has a history of DM and bariatric surgery in 2019. She denies sickness around the time of the episode. She denies changes to appetite, sleep, anxiety or new symptoms. Crescencio Beyer PA-C Attn: Accounting,[address] , [place], [address], [facility] 12/02/2020 11:52:00 12/10/2020 text/html weight loss surgery was successful...looks great..is having back issues though...ongoing.. has a knot on her low back..painful to touch...pressurize d feeling...no radiation...in may she fell seted position...pain got worse in july MATHEW Castañeda, [facility] 12/10/2020 11:58:17 OBGyn Episode No OBEpisode recorded.
--- OUTSIDE RECORDS SUMMARY | 2024-09-19 08:19 | XMS_ITS | Clinical Summary ---
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
[2024-09-19 08:32] VITALS: BP 155/92; PULSE 83; RESP 20; TEMP 37; O2SAT 100
[2024-09-19] MEDS: HYDROcodone/acetaminophen (*CRX) 5-325 MG TABLET 1 TAB PO (08:35)
[2024-09-19] MEDS: KETOROLAC 30 MG/ML VIAL (*BKC) IM (08:35)
--- NOTE | 2024-09-19 08:48 | ED.BACK ---
HPI - Back Pain/Injury General Chief Complaint: Back Pain/Injury Stated Complaint: LOWER BACK PAIN Time Seen by Provider: 09/19/24 08:04 History of Present Illness HPI Narrative: Patient presents here with low back pain on her right side going down her leg, she has had symptoms like this before and has been diagnosis sciatica, has done physical therapy in the past, started having a flare about a week ago, already which urgent care and was put on steroids and muscle relaxants but these have not helped. Related Data Allergies Allergy/AdvReac Type Severity Reaction Status Date / Time No Known Allergies Allergy Verified 09/19/24 07:59 Review of Systems Review of Systems: All systems reviewed & are unremarkable except as noted in HPI and below PMFSH Past Medical History Medical History Anxiety Chronic headaches Contusion of right hand Depression Diabetes Diabetes mellitus, type II Dizziness Sleep apnea Vertigo Vision loss Surgical History Surgical History Hx of cholecystectomy Hx of tubal ligation Family History Family History Other Depression Heart disease Social History Social History Smoking status: Never smoker Alcohol intake: current Substance use: unknown Living arrangements: alone Occupation/Education: occupation 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 EYES: EOMI, conjunctiva normal ENT: Hearing grossly intact LUNGS: Nonlabored breathing. HEART: [Regular rate and rhythm] ABD: [Soft], [nontender to palpation] EXT: Normal range of motion, no deformity, no significant tenderness to midline back SKIN: [No rashes or lesions.] NEURO: [Alert and oriented x 3. No gross focal sensory or strength deficits. Able to bear weight and ambulate] PSYCH: Normal affect Course Vital Signs Vital signs: Vital Signs Temperature 98.6 F 09/19/24 08:32 Pulse Rate 83 02/13/25 08:32 Respiratory Rate 20 09/19/24 08:32 Blood Pressure 155/92 H 09/19/24 08:32 Pulse Oximetry 100 09/19/24 08:32 Temperature 98.6 F 09/19/24 08:32 Pulse Rate 83 09/19/24 08:32 Respiratory Rate 20 09/19/24 08:32 Blood Pressure 155/92 H 09/19/24 08:32 Pulse Oximetry 100 09/19/24 08:32 MDM - Back Pain/Injury MDM Narrative Medical decision making narrative: ED COURSE AND MEDICAL DECISION MAKINF with acute on chronic back pain. Normal motor and sensory exam. Patient able to ambulate. No evidence of acute cord compression, osteomyelitis/discitis or cauda equina without saddle anesthesia, urinary retention/incontinence, numbness/tingling in lower extremities, fever, history of IV drug use, cancer or immunosuppression. Doubt AAA or aortic dissection without severe pain/discomfort or any neurovascular deficits. [Ketorolac 30 mg IM and [place]] given for symptomatic relief. At this time, I do not believe the patient requires imaging studies. Will reevaluate the need for further investigations after the medications. On reevaluation, the symptoms are improved. Patient is able to rest more comfortably. Ambulating without difficulty.? Patient is given return precautions and instructed to come back at any point in time for worsening pain, fevers, weakness, difficulty walking, urinary or fecal incontinence. Patient expressed understanding of instructions. Discharge Plan Discharge Clinical Impression: Lumbar radiculopathy, right Patient Disposition: Home, Self-Care Condition: Stable Instructions: Lumbar Radiculopathy (ED) Additional Instructions: Please follow up with your doctor or with spine surgeon; you can always return for any further issues. Patient Language: Japanese Prescriptions: No Action prednisone 50 mg tablet 50 mg PO DAILY Qty: 5 0RF prednisone 50 mg tablet 50 mg PO DAILY Qty: 5 0RF Follow-up/Referrals: Hank Tirado MD [Physician] - 2 Days Kayleen,SCOTT Patterson [Primary Care Provider] - 2 Days
== END 2024-09-19 08:46 | disposition home or self-care (01) ==
PROVIDERS: Emergency Provider Emergency Medicine; PCP Physician Assistant
DX: M54.16 Radiculopathy, lumbar region (principal); E11.9 Type 2 diabetes mellitus without complications; G47.30 Sleep apnea, unspecified; Z90.49 Acquired absence of other specified parts of digestive tract
CPT/HCPCS: 96372; 99283; A9270; J1885

== ENCOUNTER 2024-09-23 15:14 | Outpatient (CLI) | payer BC, SELFPAY ==
--- NOTE | ~2024-09-23 | XR_ITS ---
EXAM: XR lumbar spine 2-3V DATE: 09/23/2024 15:47 HISTORY: M54.50 - Low back pain, unspecified . COMPARISON: None available. FINDINGS: Exam limited by body habitus. Surgical clips over the left upper abdomen 5 nonrib-bearing l umbar-type vertebral bodies. Pedicles intact. Normal vertebral body alignment. Vertebral body heights preserved. Mild disc space narrowing at L3-4 through L5-S1. Multilevel mid and lower lumbar moderate facet hypertrophy and sclerosis. No fracture or dislocation. IMPRESSION: Mild degenerative disc disease at L3-4 through L5-S1. Moderate mid and lower lumbar facet arthropathy Reviewed, dictated and finalized at location [facility]
--- OUTSIDE RECORDS SUMMARY | 2024-09-23 17:55 | XMS_ITS | Clinical Summary ---
Author Organization [facility] Address [address] [place] [address] Phone Care Team Providers Care Eyedotter Name Role Phone SOLOMON PHAM MD Primary Care Provider [phone] Reason for Visit and Chief Complaint The patient presents for a problem. 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 SHAKA GATICA Active Last Documented On 3 8:50AM ; [facility] Plan of Treatment No Plan of Treatment Recorded Assessments Includes: Assessments from this encounter Findings - Exposure to STD - Last Documented On 09/11/2015 4:24PM ; [facility] Medical Equipment - Implanted Devices Includes: Current Devices No Medical Equipment Recorded Medications Includes: Medications discussed during this encounter and other current Medications Past Medications on file metroNIDAZOLE 0.75% Vaginal Gel 06/17/2020 - 06/22/2020 Provider: SHAKA GATICA Diagnosis: Acute vaginitis as directed 1 ROHITH IN VAGINA EVERY NIGHT X 5 Last Documented On 0 3:40PM By SHAKA CASE ; [facility] cefTRIAXone Sodium 250 MG Injection Solution Reconstituted 06/17/2020 - 06/18/2020 Provider: SHAKA GATICA Diagnosis: Gonococcal infec tion, unspecified as directed for IM administration Last Documented On 0 3:37PM By SHAKA CASE ; [facility] metroNIDAZOLE 250 MG OR TABS 03/04/2013 - 03/11/2013 Provider: SOLOMON PHAM MD Diagnosis: TRICHOMONAL VAGI NITIS no alcohol Last Documented On 03/04/2013 5:43PM By SOLOMON PHAM MD ; [facility] Medications Administered Includes: Administered Medications from this encounter No Administered Medications Recorded Vital Signs Includes: Vital Signs from this encounter Vital Name 09/11/2015 03:52P Blood Pressure Sitting (mmHg) 140/88 Height (in) 74 Weight (lb) 412 Body Mass Index (kg/m2) 52.9 Body Surface Area (m2) 3.0 Last Documented: On 09/11/2015 3:58PM ; [facility] Results Includes: Results discussed during this encounter No Results Recorded For Specified Dates History of Present Illness Includes: History of Present Illness from this encounter GLORIA LOO is a 30 year old female. - Medication list reviewed She denies any exposure to a specific organism. - Exposure to STD. Social History Description Last Updated Sexually active with partners in the [facility] 1 06/17/2020 Last Documented On 6 3:51PM ; [facility] Daily cola consumption 2 SODAS A DAY 12/2019 Last Documented On 6 3:51PM ; [facility] Education history 06/11/2020 Last Documented On 6 3:51PM ; [facility] In monogamous relationship 06/11/2020 Last Documented On 6 3:51PM ; [facility] No consumption of alcohol 06/11/2020 Last Documented On 6 3:51PM ; [facility] Personal history 06/11/2020 Last Documented On 6 3:51PM ; [facility] Smoking status : Never smoker 06/11/2020 Last Documented On 6 3:51PM ; [facility] Social history unchanged 06/11/2020 Last Documented On 6 3:51PM ; [facility] Procedures and Surgical History Includes: Procedures from this encounter Procedures Code Diagnosis Performing Provider Service L ocation Service Date Clinical summary provided to patient Last Documented On 6 4:16PM ; [facility] Surgical History Last Updated Previous colposcopy 09/11/2015 Last Documented On 6 4:24PM ; [facility] Previous abnormal pap 12/25/2009 [facility] Last Documented On 6 3:51PM ; [facility] Medical History Includes: Medical History addressed during this encounter Description Last Updated Result: normal wnl pap but + Trich on pa p 06/17/2020 Last Documented On 6 3:51PM ; [facility] Vaginal delivery 09/11/2015 Last Documented On 6 4:24PM ; [facility] LMP: 08/28/2015 09/11/2015 Last Documented On 6 4:24PM ; [facility] Sexually active 09/11/2015 Last Documented On 6 4:24PM ; [facility] Last pap smear date 05/28/2014 6 Last Documented On 6 4:24PM ; [facility] History of obesity 05/28/2014 Last Documented On 6 3:51PM ; [facility] Pt with 10/16/2012 [facility] pap ~11/12/2012 colposcopy had no lesions seen to biopsy ~02/26/2013 normal pap with trich ~04/01/2013 no trich on wet prep 07/02/2013 Last Documented On 6 3:51PM ; [facility] Status post tubal ligation 2 012 done on 09/28/2011 at [facility] with open scope due to her size 11/12/2012 Last Documented On 6 3:51PM ; [facility] PRIMARY CARE PROVIDER : BRUCE 3 Last Documented On 6 3:51PM ; [facility] Baby thriving 09/04/2011 Last Documented On 6 3:51PM ; [facility] 4 09/01/2011 Last Documented On 6 3:51PM ; [facility] Para 4 09/01/2011 Last Documented On 6 3:51PM ; [facility] She had called on 07/22/2011 with swelling and we had her come in and do [facility] labs that were normal. She states the swelling went away all on it's own within a few days. It's not been a problem since. She is bottle feeding 08/15/2011 Last Documented On 6 3:51PM ; [facility] Recent 07/22/2011 Last Documented On 6 3:51PM ; [facility] Recent with pregna ncy no. 4 delivered vaginally 07/18/2011 and went home fine 07/20/2011 07/22/2011 Last Documented On 6 3:51PM ; [facility] Family History Includes: Family History addressed during this encounter Description Last Updated Paternal grandmother's histo ry of Family history of colon cancer -- paternal grand mother--- Dx'd in her 70's 09/11/2015 Last Documented On 6 4:24PM ; [facility] Paternal grandmother's histo ry of malignant neoplasm of large intestine PGM 09/11/2015 Last Documented On 6 4:24PM ; [facility] First child named Brenda 09/11/2015 Last Documented On 6 4:24PM ; [facility] Fourth child named Arnulfo 09/11/2015 Last Documented On 6 4:24PM ; [facility] Second child named Stanton 09/11/2015 Last Documented On 6 4:24PM ; [facility] Third child named Joyeclyn 09/11/2015 Last Documented On 6 4:24PM ; [facility] Family history of diabetes mellitus 05/08 Last Documented On 6 3:51PM ; [facility] Family history of hypercholesterolemia F AMILY HX OF 09/01/2011 Last Documented On 6 3:51PM ; [facility] Family history of hypertension FAMILY HX OF 09/01/2011 Last Documented On 6 3:51PM ; [facility] Review of Systems Includes: Review of Systems [...] Active Last Documented On 0 2:55PM ; [facility] Encounters Encounter Provider Location Date Check-In Time Check-Out Time Diagnosis PROBLEM VISIT SOLOMON PHAM MD [facility] PAY AGENT 09/11/19 16 3:48PM 4:39PM Exposure To Std Insurance Includes: Active Insurance Policies Plan Name Member ID Group # Subscriber Relationship Effect amanuel Dates 1 - [facility] [id number] HUEY LOO Self Clinical Notes Includes: Clinical Notes from this encounter No Clinical Notes Recorded
--- OUTSIDE RECORDS SUMMARY | 2024-09-23 17:55 | XMS_ITS | Referral Summary ---
Author Organization [facility] Address [address] [place] [address] Care Team Providers Care Manager Cash Name Role Phone Devin Beyer Primary Care Provider [phone] Source Comments [facility],non-owned Affiliates and Associated Physician Practices is amultiple site organization consisting of ambulatory clinics and hospital sitesin [place], [place], [place] and [place]. This disclosure is being madepursuant to the Care Everywhere program and may not contain all information available regarding this patient. 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
--- OUTSIDE RECORDS SUMMARY | 2024-09-23 17:55 | XMS_ITS | Clinical Summary ---
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 - Last Documented On 06/11/2020 1:57PM ; [facility] Instructions to patient Instructions for patient : B reast Self Exam discussed and technique reviewed Last Documented On 0 1:43PM ; [facility] Use a condom during sexual i ntercourse Last Documented On 0 1:43PM ; [facility] Instructed to call if excess amanuel bleeding or abdominal/pelvic pain Last Documented On 0 1:43PM ; [facility] Recommend diet and exercise at least 30 min three times per week Last Documented On 0 1:43PM ; [facility] Education and Decision Aids were provided during visit for: Patient Education: Daily james cium and vitamin D Last Documented On 0 1:43PM ; [facility] Assessments Includes: Assessments from this encounter Findings - NORMAL FEMALE EXAM - Last Documented On 06/11/2020 1:57PM ; [facility] - Screen malignant neoplasm cervix - Last Documented On 06/11/2020 1:57PM ; [facility] Instructions Includes: Instructions from this encounter Instructions to patient Instructions for patient : B reast Self Exam discussed and technique reviewed Last Documented On 0 1:43PM ; [facility] Use a condom during sexual i ntercourse Last Documented On 0 1:43PM ; [facility] Instructed to call if excess amanuel bleeding or abdominal/pelvic pain Last Documented On 0 1:43PM ; [facility] Recommend diet and exercise at least 30 min three times per week Last Documented On 0 1:43PM ; [facility] Education and Decision Aids were provided during visit for: Patient Education: Daily james cium and vitamin D Last Documented On 0 1:43PM ; [facility] Medical Equipment - Implanted Devices Includes: Current Devices No Medical Equipment Recorded Medications Includes: Medications discussed during this encounter and other current Medications Past Medications on file metroNIDAZOLE 0.75% Vaginal Gel 06/17/2020 - 06/22/2020 Provider: SHAKA JANE Diagnosis: Acute vaginitis as directed 1 ROHITH IN VAGINA EVERY NIGHT X 5 Last Documented On 0 3:40PM By SHAKA CASE ; [facility] cefTRIAXone Sodium 250 MG Injection Solution Reconstituted 06/17/2020 - 06/18/2020 Provider: SHAKA GATICA Diagnosis: Gonococcal infec tion, unspecified as directed for IM administration Last Documented On 0 3:37PM By SHAKA CASE ; [facility] metroNIDAZOLE 250 MG OR TABS 03/04/2013 - 03/11/2013 Provider: SOLOMON PHAM MD Diagnosis: TRICHOMONAL VAGI NITIS no alcohol Last Documented On 03/04/2013 5:43PM By SOLOMON PHAM MD ; [facility] Medications Administered Includes: Administered Medications from this encounter No Administered Medications Recorded Vital Signs Includes: Vital Signs from this encounter Vital Name 06/11/2020 01:33P Blood Pressure Sitting (mmHg) 130/64 Temp-Oral (F) 98.1 Height (in) 73.5 Weight (lb) 283 Body Mass Index (kg/m2) 36.8 Body Surface Area (m2) 2.5 Last Documented: On 06/11/2020 1:36PM ; [facility] Results Includes: Results [...] 06/11/2020 Last Documented On 0 1:57PM ; [facility] Daily cola consumption 2 SODAS A DAY 12/2019 Last Documented On 0 1:57PM ; [facility] Education history 06/11/2020 Last Documented On 0 1:57PM ; [facility] In monogamous relationship 06/11/2020 Last Documented On 0 1:57PM ; [facility] No consumption of alcohol 06/11/2020 Last Documented On 0 1:57PM ; [facility] Non-smoker 06/11/2020 Last Documented On 0 1:57PM ; [facility] Personal history 06/11/2020 Last Documented On 0 1:57PM ; [facility] Sexually active 06/11/2020 Last Documented On 0 1:57PM ; [facility] Sexually active with partners in the t year 1 06/11/2020 Last Documented On 0 1:57PM ; [facility] Smoking status : Never smoker 06/11/2020 Last Documented On 0 1:57PM ; [facility] Social history unchanged 06/11/2020 Last Documented On 0 1:57PM ; [facility] Not using alcohol 06/11/2020 Last Documented On 0 1:57PM ; [facility] Not using drugs 06/11/2020 Last Documented On 0 1:57PM ; [facility] Smoking status : Never smoker 06/11/2020 Last Documented On 0 1:57PM ; [facility] Procedures and Surgical History Includes: Procedures from this encounter Procedures Code Diagnosis Performing Provider Service L ocation Service Date education and instructions Last Documented On 0 1:43PM ; [facility] explanation of plan Last Documented On 0 1:43PM ; [facility] Urged Exercise and Diet , exercise at le ast 30 min three times per week Last Documented On 0 1:43PM ; [facility] Clinical summary provided to patient Last Documented On 0 1:43PM ; [facility] cervical Pap smear 05414 Last Documented On 0 1:43PM ; [facility] Surgical History Last Updated Surgical / procedural history gastric by pass 06/11/2020 Last Documented On 0 1:57PM ; [facility] Previous colposcopy 09/11/2015 Last Documented On 0 1:16PM ; [facility] History of tubal ligation 05/28/2014 Last Documented On 0 1:16PM ; [facility] Medical History Includes: Medical History addressed during this encounter Description Last Updated History of Pap smear done 05/28/201412/2019 Last Documented On 0 1:57PM ; [facility] LMP: 06/06/2020 06/11/2020 Last Documented On 0 1:57PM ; [facility] Vaginal delivery 09/11/2015 Last Documented On 0 1:16PM ; [facility] Sexually active 09/11/2015 Last Documented On 0 1:16PM ; [facility] Last pap smear date 05/28/2014 6 Last Documented On 0 1:16PM ; [facility] History of obesity 05/28/2014 Last Documented On 0 1:16PM ; [facility] No recent change in medical history 05/08 Last Documented On 0 1:16PM ; [facility] Contraception: BTL 05/28/2014 Last Documented On 0 1:16PM ; [facility] Pt with 10/16/2012 LGSIL pap ~11/12/2012 colposcopy had no lesions seen to biopsy ~02/26/2013 normal pap with trich ~04/01/2013 no trich on wet prep 07/02/2013 Last Documented On 0 1:16PM ; [facility] Status post tubal ligation 2 012 done on 09/28/2011 at [facility] with open scope due to her size 11/12/2012 Last Documented On 0 1:16PM ; [facility] PRIMARY CARE PROVIDER : BRUCE 3 Last Documented On 0 1:16PM ; [facility] A Pap smear was performed 12/24/201008/08 Last Documented On 0 1:16PM ; [facility] After visit 09/04/2011 Last Documented On 0 1:16PM ; [facility] Baby thriving 09/04/2011 Last Documented On 0 1:16PM ; [facility] Before visit 09/04/2011 Last Documented On 0 1:16PM ; [facility] Condoms 09/04/2011 Last Documented On 0 1:16PM ; [facility] is bottle-feeding 09/04/2011 Last Documented On 0 1:16PM ; [facility] 4 09/01/2011 Last Documented On 0 1:16PM ; [facility] Para 4 09/01/2011 Last Documented On 0 1:16PM ; [facility] She had called on 07/22/2011 with swelling and we had her come in and do H labs that were normal. She states the swelling went away all on it's own within a few days. It's not been a problem since. She is bottle feeding 08/15/2011 Last Documented On 0 1:16PM ; [facility] Recent 07/22/2011 Last Documented On 0 1:16PM ; [facility] Recent with pregna ncy no. 4 delivered vaginally 07/18/2011 and went home fine 07/20/2011 07/22/2011 Last Documented On 0 1:16PM ; [facility] Family History Includes: Family History addressed during this encounter Description Last Updated Paternal grandmother's histo ry of Family history of colon cancer -- paternal grand mother--- Dx'd in her 70's 09/11/2015 Last Documented On 0 1:16PM ; [facility] Paternal grandmother's histo ry of malignant neoplasm of large intestine PGM 09/11/2015 Last Documented On 0 1:16PM ; [facility] First child named Brenda 09/11/2015 Last Documented On 0 1:16PM ; [facility] Fourth child named Arnulfo 09/11/2015 Last Documented On 0 1:16PM ; [facility] Second child named Stanton 09/11/2015 Last Documented On 0 1:16PM ; [facility] Third child named Joycelyn 09/11/2015 Last Documented On 0 1:16PM ; [facility] Family history unchanged 05/28/2014 Last Documented On 0 1:16PM ; [facility] Family history of diabetes mellitus 05/08 Last Documented On 0 1:16PM ; [facility] Family history of malignant neoplasm of the large intestine PGM 05/28/2014 Last Documented On 0 1:16PM ; [facility] Family history of colon canc er -- paternal grand mother--- Dx'd in her 70's 10/16/2012 Last Documented On 0 1:16PM ; [facility] No Family history of cancer breast, uter ine, or ovarian 10/16/2012 Last Documented On 0 1:16PM ; [facility] Family history of hypercholesterolemia F AMILY HX OF 09/01/2011 Last Documented On 0 1:16PM ; [facility] Family history of hypertension FAMILY HX OF 09/01/2011 Last Documented On 0 1:16PM ; [facility] No family history of uterine cancer 08/08 Last Documented On 0 1:16PM ; [facility] No heart disease 09/01/2011 Last Documented On 0 1:16PM ; [facility] Review of Systems Includes: Review of Systems [...] Active Last Documented On 0 2:55PM ; [facility] Encounters Encounter Provider Location Date Check-In Time Check-Out Time Diagnosis NEW CONTACT LENS BLOCKER EXAM SHAKA MARTIN RN [facility] 06/11/20 20 1:13PM 1:58PM Normal Female Exam,Screen Malignant Neoplasm Cervix Insurance Includes: Active Insurance Policies Plan Name Member ID Group # Subscriber Relationship Effect amanuel Dates - [facility] [id number] HUEY LOO Self Clinical Notes Includes: Clinical Notes from this encounter No Clinical Notes Recorded
--- OUTSIDE RECORDS SUMMARY | 2024-09-23 17:56 | XMS_ITS | Clinical Summary ---
Author Organization [address] Address [address] [place] [address] Care Team Providers Care Cashier Wrapper Name Role Phone Devin Beyer Primary Care Provider [phone] Allergies Active Allergy Reactions Criticality Noted Date Comments Penicillins Rash Reaction: Rash, Medications ibuprofen (ADVIL,MOTRIN) 600 mg tablet take 1 tablet by oral route 3 times every day with food 0 0 03/22/2016 Active cyclobenzaprine (FLEXERIL) 10 mg tabletIndication s:Acute right-sided low back pain with right-sided sciatica Take 1 tablet (10 mg total) by mouth 3 (three) times a day as needed for muscle spasms 15 tablet 08/15/2024 5 Active Active Problems No known active problems Encounters Date Type Department Care Team Description 08/15/2024 12:00 PM MINING AND QUARRYING MACHINERY REPAIRER Office Visit [facility] Care at [address] [address] Andreia George NP Acute right-sided [...] on file Legal Sex Female 1:41 AM MINING AND QUARRYING MACHINERY REPAIRER Gender Identity Not on file Sexual Orientation Not on file Obstetrics History Last Filed Vital Signs Vital Sign Reading Time Taken Comments Blood Pressure 128/76 08/15/2024 12:16 PM MINING AND QUARRYING MACHINERY REPAIRER Pulse 73 08/15/2024 12:16 PM MINING AND QUARRYING MACHINERY REPAIRER Temperature 36.9 C (98.4 F) 08/15/2024 12:16 PM MINING AND QUARRYING MACHINERY REPAIRER Respiratory Rate 24 08/15/2024 12:16 PM MINING AND QUARRYING MACHINERY REPAIRER Oxygen Saturation 97% 08/15/2024 12:16 PM MINING AND QUARRYING MACHINERY REPAIRER Inhaled Oxygen Concentration - - Weight 179.6 kg (396 lb) 08/15/2024 12:16 PM MINING AND QUARRYING MACHINERY REPAIRER Height 188 cm (6' 2 ) 03/22/2016 [...] patient's age to complete this topic Insurance [facility] [address] [address] [place] [address] [employer] Care Teams Cashier Wrapper Relationship Specialty Start Date End Date Devin Beyer PA [address] [place] [address] PCP - General 03/22/16
--- OUTSIDE RECORDS SUMMARY | 2024-09-23 17:56 | XMS_ITS | Clinical Summary ---
Author Organization [facility] Address [address] [place] [address] Care Team Providers Care Wine Bottle Inspector Name Role Phone Devin Beyer Primary Care Provider [phone] Source Comments [facility],non-owned Affiliates and Associated Physician Practices is amultiple site organization consisting of ambulatory clinics and hospital sitesin [place], [place], [place] and [place]. This disclosure is being madepursuant to the Care Everywhere program and may not contain all information available regarding this patient. 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
--- OUTSIDE RECORDS SUMMARY | 2024-09-23 17:56 | XMS_ITS | Clinical Summary ---
Author Organization [facility] Address [address] [place] [address] Phone Care Team Providers Care Plastics Tooling Engineer Name Role Phone Devin Beyer Primary Care Provider [phone] Allergies Active Allergy Reactions Criticality Noted Date [...] Insurance MEDICAID [employer] Care Teams Plastics Tooling Engineer Relationship Specialty Start Date End Date Devin Beyer PAC [address] [place] [id number] PCP - General Physician Replenishment Merchandising Associate 08/31/18
--- OUTSIDE RECORDS SUMMARY | 2024-09-23 17:56 | XMS_ITS ---
Care Plan - [facility] Created on: September 23, 2024 EZEHUEY : 1985 Sex: Female Author Organization [facility] Address [address] [place] [address] Phone Care Team Providers Care Lepidopterist Name Role Phone SOLOMON PHAM MD Primary Care Provider [phone]
--- OUTSIDE RECORDS SUMMARY | 2024-09-23 17:56 | XMS_ITS | Patient Health Summary ---
Author Organization [facility] Address [address] [facility] [place] [address] Care Team Providers Care Patient Resource Coordinator Name Role Phone Devin Beyer Primary Care Provider [phone] Note from [facility],non-owned Affiliates and Associated Physician Practices is amultiple site organization consisting of ambulatory clinics and hospital sitesin [place], [place], [place] and [place]. This disclosure is being madepursuant to the Care Everywhere program and may not contain all information available regarding this patient. 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 Contact precautions required. Conventional antibiotic susceptibility testing to follow. Gram Stain Moderate Polymorphonuclear cells 03/22/2021 5:12 AM T [facility] Gram Stain Light Gram-positive cocci in clusters 03/22/2021 5:12 AM T [facility] Microbiology TISSUE SPECIMEN FROM [facility] / Unknown Collection / Unknown 03/19/2021 9:13 AM CDT 03/19/2021 9:13 AM CDT Narrative [facility] - 03/22/2021 5:12 AM CDT Methicillin-resistant [...] Vancomycin CHAUNCEY <=0.5 ug/mL: Susceptible Gillian Wilkinson MACHINE DRILLER-TIME MOTION ANALYST LAB - MICRO BIOLOGY ORDERABLES [facility] [address] [place], [place] [address], [place] [phone] Care Teams Patient Resource Coordinator Relationship Specialty Start Date End Date Devin Beyer PA [address] [place] [address] PCP - General Physician Value Advisor 03/19/21
--- OUTSIDE RECORDS SUMMARY | 2024-09-23 17:56 | XMS_ITS | Clinical Summary ---
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 I discussed with the patient that condoms can reduce the chance of getting an STD but not eliminate it. Increased exposure from multiple sex partners also discussed Last Documented On 0 2:58PM ; [facility] Assessments Includes: Assessments from this encounter Findings - Gonococcal cervicitis CHRISTEL - Last Documented On 07/21/2020 3:05PM ; [facility] Instructions Includes: Instructions from this encounter Instructions to patient Return to the clinic if cond ition worsens or new symptoms arise Last Documented On 0 2:58PM ; [facility] Education and Decision Aids were provided during visit for: Patient counseling : STD pre vention. I discussed with the patient that condoms can reduce the chance of getting an STD but not eliminate it. Increased exposure from multiple sex partners also discussed Last Documented On 0 2:58PM ; [facility] Medical Equipment - Implanted Devices Includes: Current Devices No Medical Equipment Recorded Medications Includes: Medications discussed during this encounter and other current Medications Past Medications on file metroNIDAZOLE 0.75% Vaginal Gel 06/17/2020 - 06/22/2020 Provider: SHAKA GATICA Diagnosis: Acute vaginitis as directed 1 ROHITH IN VAGINA EVERY NIGHT X 5 Last Documented On 0 3:40PM By SHAKA CASE ; [facility] cefTRIAXone Sodium 250 MG Injection Solution Reconstituted 06/17/2020 - 06/18/2020 Provider: SHAKA GATICA Diagnosis: Gonococcal infec tion, unspecified as directed for IM administration Last Documented On 0 3:37PM By SHAKA CASE ; [facility] metroNIDAZOLE 250 MG OR TABS 03/04/2013 - 03/11/2013 Provider: SOLOMON PHAM MD Diagnosis: TRICHOMONAL VAGI NITIS no alcohol Last Documented On 03/04/2013 5:43PM By SOLOMON PHAM MD ; [facility] Medications Administered Includes: Administered Medications from this encounter No Administered Medications Recorded Vital Signs Includes: Vital Signs from this encounter Vital Name 07/21/2020 02:52P Blood Pressure Sitting (mmHg) 118/64 Temp-Oral (F) 97.3 Height (in) 73.5 Weight (lb) 278 Body Mass Index (kg/m2) 36.2 Body Surface Area (m2) 2.5 Last Documented: On 07/21/2020 2:53PM ; [facility] Results Includes: Results discussed [...] 06/11/2020 Last Documented On 0 2:52PM ; [facility] Previous colposcopy 09/11/2015 Last Documented On 0 2:52PM ; [facility] History of tubal ligation 05/28/2014 Last Documented On 0 2:52PM ; [facility] Previous abnormal pap 12/25/2009 [facility] Last Documented On 0 2:52PM ; [facility] Medical History Includes: Medical History addressed during this encounter Description Last Updated History of acute gonorrhea 07/21/2020 Last Documented On 0 3:05PM ; [facility] LMP: 07/08/2020 07/21/2020 Last Documented On 0 3:05PM ; [facility] Result: normal 06/17/2020 Last Documented On 0 2:52PM ; [facility] History of Pap smear done 06/11/202006/2020 Last Documented On 0 2:52PM ; [facility] Vaginal delivery 09/11/2015 Last Documented On 0 2:52PM ; [facility] Sexually active 09/11/2015 Last Documented On 0 2:52PM ; [facility] History of obesity 05/28/2014 Last Documented On 0 2:52PM ; [facility] No recent change in medical history 05/08 Last Documented On 0 2:52PM ; [facility] Contraception: BTL 05/28/2014 Last Documented On 0 2:52PM ; [facility] Pt with 10/16/2012 [facility] pap ~11/12/2012 colposcopy had no lesions seen to biopsy ~02/26/2013 normal pap with trich ~04/01/2013 no trich on wet prep 07/02/2013 Last Documented On 0 2:52PM ; [facility] Status post tubal ligation 2 012 done on 09/28/2011 at [facility] with open scope due to her size 11/12/2012 Last Documented On 0 2:52PM ; [facility] PRIMARY CARE PROVIDER : BRUCE 3 Last Documented On 0 2:52PM ; [facility] After visit 09/04/2011 Last Documented On 0 2:52PM ; [facility] Baby thriving 09/04/2011 Last Documented On 0 2:52PM ; [facility] 4 09/01/2011 Last Documented On 0 2:52PM ; [facility] Para 4 09/01/2011 Last Documented On 0 2:52PM ; [facility] She had called on 07/22/2011 with swelling and we had her come in and do PIH labs that were normal. She states the swelling went away all on it's own within a few days. It's not been a problem since. She is bottle feeding 08/15/2011 Last Documented On 0 2:52PM ; [facility] Recent 07/22/2011 Last Documented On 0 2:52PM ; [facility] Recent with pregna ncy no. 4 delivered vaginally 07/18/2011 and went home fine 07/20/2011 07/22/2011 Last Documented On 0 2:52PM ; [facility] Family History Includes: Family History addressed during this encounter Description Last Updated Paternal grandmother's histo ry of Family history of colon cancer -- paternal grand mother--- Dx'd in her 70's 09/11/2015 Last Documented On 0 2:52PM ; [facility] Paternal grandmother's histo ry of malignant neoplasm of large intestine PGM 09/11/2015 Last Documented On 0 2:52PM ; [facility] First child named Brenda 09/11/2015 Last Documented On 0 2:52PM ; [facility] Fourth child named Arnulfo 09/11/2015 Last Documented On 0 2:52PM ; [facility] Second child named Stanton 09/11/2015 Last Documented On 0 2:52PM ; [facility] Third child named Joycelyn 09/11/2015 Last Documented On 0 2:52PM ; [facility] Family history unchanged 05/28/2014 Last Documented On 0 2:52PM ; [facility] Family history of diabetes mellitus 05/08 Last Documented On 0 2:52PM ; [facility] Family history of malignant neoplasm of the large intestine PGM 05/28/2014 Last Documented On 0 2:52PM ; [facility] Family history of colon canc er -- paternal grand mother--- Dx'd in her 70's 10/16/2012 Last Documented On 0 2:52PM ; [facility] No Family history of cancer breast, uter ine, or ovarian 10/16/2012 Last Documented On 0 2:52PM ; [facility] Family history of hypercholesterolemia F AMILY HX OF 09/01/2011 Last Documented On 0 2:52PM ; [facility] Family history of hypertension FAMILY HX OF 09/01/2011 Last Documented On 0 2:52PM ; [facility] No family history of uterine cancer 08/08 Last Documented On 0 2:52PM ; [facility] No heart disease 09/01/2011 Last Documented On 0 2:52PM ; [facility] Review of Systems Includes: Review of Systems [...] Last Documented On 0 2:55PM ; [facility] Encounters Encounter Provider Location Date Check-In Time Check- Out Time Diagnosis RECHECK SHAKA MARTIN RN [facility] 0 2:30PM 3:05PM Cervicitis Gonococcus Insurance Includes: Active Insurance Policies Plan Name Member ID Group # Subscriber Relationship Effect amanuel Dates - [employer] [employer] [facility] [id number] HUEY LOO Self Clinical Notes Includes: Clinical Notes from this encounter No Clinical Notes Recorded
--- OUTSIDE RECORDS SUMMARY | 2024-09-23 17:56 | XMS_ITS | Referral Summary ---
Author Organization [address] Address [address] [place] [id number] Care Team Providers Care Assistant Shift Supervisor Name Role Phone Devin Beyer Primary Care Provider [phone] Encounters Date Type Department Care Team Description 08/15/2024 12:00 PM NET DEVELOPER WITH WCF Office Visit [facility] at [address] [address] Andreia George NP Acute right-sided [...] Active Active Problems No known active problems Social History Tobacco Use Types Packs/Day Years Used Date Smoking Tobacco: Never Alcohol Use Standard Drinks/Week Comments Yes 0 (1 standard drink = 0.6 oz pur e alcohol) Comments Unknown Sex and Gender Information Value Date Recorded Sex Assigned at Not on file Legal Sex Female 1:41 AM NET DEVELOPER WITH WCF Gender Identity Not on file Sexual Orientation Not on file Last Filed Vital Signs Vital Sign Reading Time Taken Comments Blood Pressure 128/76 08/15/2024 12:16 PM NET DEVELOPER WITH WCF Pulse 73 08/15/2024 12:16 PM NET DEVELOPER WITH WCF Temperature 36.9 C (98.4 F) 08/15/2024 12:16 PM NET DEVELOPER WITH WCF Respiratory Rate 24 08/15/2024 12:16 PM NET DEVELOPER WITH WCF Oxygen Saturation 97% 08/15/2024 12:16 PM NET DEVELOPER WITH WCF Inhaled Oxygen Concentration - - Weight 179.6 kg (396 lb) 08/15/2024 12:16 PM NET DEVELOPER WITH WCF Height 188 cm (6' 2 ) 03/22/2016 9:26 AM CDT Body Mass Index 50.84 03/22/2016 9:26 AM CDT Plan of Treatment Not on file Insurance [employer] Member Subscriber Plan / Payer (Ef fective 2023-Present) Name:Graciela Shepherd Relation to Subscriber:Self Name:Graciela Shepherd Payer ID:[id number] (NAIC) Type:GAVI GARCIA Address: [facility] [id number] [place] [id number] Care Teams Assistant Shift Supervisor Relationship Specialty Start Date End Date Devin Beyer PA [address] [place] [address] PCP - General 03/22/16
--- OUTSIDE RECORDS SUMMARY | 2024-09-23 17:56 | XMS_ITS | Clinical Summary ---
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
--- OUTSIDE RECORDS SUMMARY | 2024-09-23 17:56 | XMS_ITS ---
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 SHAKA MARTIN RN [facility] Active Last Documented On 3 8:50AM ; [facility] Trichomoniasis 03/13/2013 Unknown SOLOMON PHAM MD Res olved Last Documented On 3 8:50AM ; [facility] Plan of Treatment Findings Encounter Date Ordered Clinical summary pro vided to patient NEW APPARATUS LINEMAN EXAM with SHAKA MARTIN RN [facility] 06/11/2020 Last Documented On 0 1:57PM ; [facility] Ordered weight loss diet NEW APPARATUS LINEMAN EXAM with SHAKA MARTIN RN [facility] 06/11/2020 Last Documented On 0 1:57PM ; [facility] Ordered Clinical summary pro vided to patient APPARATUS LINEMAN EXAM with SHAKA MARTIN RN [facility] 05/28/2014 Last Documented On 4 2:57PM ; [facility] Otherwise she is due back fo r pap smear after 12/25/2011 POST VISIT with SOLOMON PHAM MD 09/01/2011 Last Documented On 2 11:29AM ; [facility] Instructions to patient Return to the clinic if cond ition worsens or new symptoms arise Last Documented On 0 2:58PM ; [facility] Instructions for patient : B reast Self Exam discussed and technique reviewed Last Documented On 0 1:43PM ; [facility] Use a condom during sexual i ntercourse Last Documented On 0 1:43PM ; [facility] Instructed to call if excess amanuel bleeding or abdominal/pelvic pain Last Documented On 0 1:43PM ; [facility] Recommend diet and exercise at least 30 min three times per week Last Documented On 0 1:43PM ; [facility] Instructions for patient : B reast Self Exam discussed and technique reviewed Last Documented On 4 2:42PM ; [facility] Use a condom during sexual i ntercourse Last Documented On 4 2:42PM ; [facility] Instructed to call if excess amanuel bleeding or abdominal/pelvic pain Last Documented On 4 2:42PM ; [facility] Recommend diet and exercise at least 30 min three times per week Last Documented On 4 2:42PM ; [facility] Return to the clinic if cond ition worsens or new symptoms arise Last Documented On 3 8:57AM ; [facility] Instructions for patient : B reast Self Exam discussed and technique reviewed Last Documented On 3 10:56AM ; [facility] Education and Decision Aids were provided during visit for: Patient counseling : STD pre vention. I discussed with the patient that condoms can reduce the chance of getting an STD but not eliminate it. Increased exposure from multiple sex partners also discussed Last Documented On 0 2:58PM ; [facility] Patient Education: Daily james cium and vitamin D Last Documented On 0 1:43PM ; [facility] Patient Education: Daily james cium and vitamin D Last Documented On 4 2:42PM ; [facility] Patient counseling : STD pre vention. I discussed with the patient that condoms can reduce the chance of getting an STD but not eliminate it. Increased exposure from multiple sex partners also discussed Last Documented On 3 8:57AM ; [facility] INFORMED CONSENT DISCUSSION: Colposcopy was discussed in detail including risk of post procedure bleeding and infection. Patient is not to have anything in the vagina till all of the discharge stops following the procedure. Patient expressed understanding of the above and consented to the procedure Last Documented On 3 11:10AM ; [facility] Post-op teaching about wound care Last Documented On 2 4:14PM ; [facility] Post-op teaching about signs and symptoms of infection Last Documented On 2 4:14PM ; [facility] Cautioned pt about unintende d . She will use condoms till after her 6 week post tubal ligation check Last Documented On 2 11:27AM ; [facility] Counseling on sterilization procedures as above Last Documented On 2 10:33AM ; [facility] Assessments Includes: Assessments for all patient encounters Findings Encounter Date Gonococcal cervicitis CHRISTEL RECHECK with SHAKA GAGE RN [facility] 07/21/2020 Last Documented On 0 3:05PM ; [facility] Vaginitis INJECTION with SHAKA MARTIN RN [facility] 06/17/2020 Last Documented On 0 4:32PM ; [facility] NORMAL FEMALE EXAM NEW APPARATUS LINEMAN EXAM with SHAKA MARTINEZ RN [facility] 06/11/2020 Last Documented On 0 1:57PM ; [facility] Screen malignant neoplasm cervix NEW APPARATUS LINEMAN EXAM with SHAKA MARTIN RN [facility] 06/11/2020 Last Documented On 0 1:57PM ; [facility] Exposure to STD PROBLEM VISIT with SOLOMON Whitehead MD 09/11/2015 Last Documented On 6 4:24PM ; [facility] Routine gynecological exam APPARATUS LINEMAN EXAM with SHAKA MARTIN RN [facility] 05/28/2014 Last Documented On 4 2:57PM ; [facility] Cervical Pap smear: low grad e squamous intraepithelial lesion RE-PAP with SOLOMON PHAM MD 07/02/2013 Last Documented On 3 8:59AM ; [facility] SCREENING FOR STD GENERAL OFFICE VISIT with RAMIRO MARTIN RN [facility] 04/01/2013 Last Documented On 3 8:58AM ; [facility] Cervical Pap smear: low grad e squamous intraepithelial lesion PAP SMEAR ONLY with SOLOMON PHAM MD 02/26/2013 Last Documented On 3 9:24AM ; [facility] Cervical Pap smear: low grad e squamous intraepithelial lesion COLPOSCOPY with SOLOMON PHAM MD 11/12/2012 Last Documented On 3 11:11AM ; [facility] Breast fibrocystic disease APPARATUS LINEMAN EXAM with SOLOMON GÓMEZ MD 10/16/2012 Last Documented On 3 11:12AM ; [facility] Exposure to STD APPARATUS LINEMAN EXAM with SOLOMON PHAM MD 10/16/2012 Last Documented On 3 11:12AM ; [facility] NORMAL FEMALE EXAM APPARATUS LINEMAN EXAM with SOLOMON PHAM MD 10/16/2012 Last Documented On 3 11:12AM ; [facility] POST OP VISIT POST VISIT with SOLOMON VALENTE MD 11/21/2011 Last Documented On 2 6:42PM ; [facility] No postoperative infection POST OP VISIT with RAIN PHAM MD 10/13/2011 Last Documented On 2 4:26PM ; [facility] POST OP VISIT POST OP VISIT with SOLOMON Whitehead MD 10/13/2011 Last Documented On 2 4:26PM ; [facility] Normal routine history and p hysical - POST VISIT with SOLOMON PHAM MD 09/01/2011 Last Documented On 2 11:29AM ; [facility] Contraceptive management PROBLEM VISIT with SOLOMON PHAM MD 08/15/2011 Last Documented On 2 10:34AM ; [facility] complicated by tra nsient hypertension - condition or prior complicated delivery [Patient Encounter] with SOLOMON PHAM MD 07/22/2011 Last Documented On 1 12:55PM ; [facility] Instructions Includes: Instructions for all patient encounters Instructions to patient Return to the clinic if cond ition worsens or new symptoms arise Last Documented On 0 2:58PM ; [facility] Instructions for patient : B reast Self Exam discussed and technique reviewed Last Documented On 0 1:43PM ; [facility] Use a condom during sexual i ntercourse Last Documented On 0 1:43PM ; [facility] Instructed to call if excess amanuel bleeding or abdominal/pelvic pain Last Documented On 0 1:43PM ; [facility] Recommend diet and exercise at least 30 min three times per week Last Documented On 0 1:43PM ; [facility] Instructions for patient : B reast Self Exam discussed and technique reviewed Last Documented On 4 2:42PM ; [facility] Use a condom during sexual i ntercourse Last Documented On 4 2:42PM ; [facility] Instructed to call if excess amanuel bleeding or abdominal/pelvic pain Last Documented On 4 2:42PM ; [facility] Recommend diet and exercise at least 30 min three times per week Last Documented On 4 2:42PM ; [facility] Return to the clinic if cond ition worsens or new symptoms arise Last Documented On 3 8:57AM ; [facility] Instructions for patient : B reast Self Exam discussed and technique reviewed Last Documented On 3 10:56AM ; [facility] Education and Decision Aids were provided during visit for: Patient counseling : STD pre vention. I discussed with the patient that condoms can reduce the chance of getting an STD but not eliminate it. Increased exposure from multiple sex partners also discussed Last Documented On 0 2:58PM ; [facility] Patient Education: Daily james cium and vitamin D Last Documented On 0 1:43PM ; [facility] Patient Education: Daily james cium and vitamin D Last Documented On 4 2:42PM ; [facility] Patient counseling : STD pre vention. I discussed with the patient that condoms can reduce the chance of getting an STD but not eliminate it. Increased exposure from multiple sex partners also discussed Last Documented On 3 8:57AM ; [facility] INFORMED CONSENT DISCUSSION: Colposcopy was discussed in detail including risk of post procedure bleeding and infection. Patient is not to have anything in the vagina till all of the discharge stops following the procedure. Patient expressed understanding of the above and consented to the procedure Last Documented On 3 11:10AM ; [facility] Post-op teaching about wound care Last Documented On 2 4:14PM ; [facility] Post-op teaching about signs and symptoms of infection Last Documented On 2 4:14PM ; [facility] Cautioned pt about unintende d . She will use condoms till after her 6 week post tubal ligation check Last Documented On 2 11:27AM ; [facility] Counseling on sterilization procedures as above Last Documented On 2 10:33AM ; [facility] Medical Equipment - Implanted Devices Includes: Current and historical Devices No Medical Equipment Recorded Medications Includes: Current and historical Medications Past Medications on file metroNIDAZOLE 0.75% Vaginal Gel 06/17/2020 - 06/22/2020 Provider: SHAKA GATICA Diagnosis: Acute vaginitis as directed 1 ROHITH IN VAGINA EVERY NIGHT X 5 Last Documented On 0 3:40PM By SHAKA CASE ; [facility] cefTRIAXone Sodium 250 MG Injection Solution Reconstituted 06/17/2020 - 06/18/2020 Provider: SHAKA GATICA Diagnosis: Gonococcal infec tion, unspecified as directed for IM administration Last Documented On 0 3:37PM By SHAKA CASE ; [facility] metroNIDAZOLE 250 MG OR TABS 03/04/2013 - 03/11/2013 Provider: SOLOMON PHAM MD Diagnosis: TRICHOMONAL VAGI NITIS no alcohol Last Documented On 03/04/2013 5:43PM By SOLOMON PHAM MD ; [facility] AD OR TABS 09/01/2011 - 11/12/2012 Provider: Diagnosis: Last Documented On 3 10:43AM By CARA CHAPA MA ; [facility] Medications Administered Includes: Administered Medications in patient's chart Medications Administered Diagnosis Date Pro vider cefTRIAXone Sodium 250 MG IJ SOLR 020 SHAKA GATICA administered IM left glut......ed Last Documented On 0 4:18PM By ARUNA TORRES ; [facility] Results Includes: Results from 09/23/2023 through 09/23/2024 No Results Recorded For Specified Dates History of Present Illness History of Present Illness not supported for this document type No History of Present Illness Recorded Social History Description Last Updated Marital history Single 06/17/2020 Last Documented On 0 4:32PM ; [facility] Not using alcohol 06/17/2020 Last Documented On 0 4:32PM ; [facility] Not using drugs 06/17/2020 Last Documented On 0 4:32PM ; [facility] Sexually active with 1 partners in the l ast year 06/17/2020 Last Documented On 0 4:32PM ; [facility] Alcohol use: 2 drinks or less per day OC C 06/11/2020 Last Documented On 0 1:57PM ; [facility] Daily cola consumption 2 SODAS A DAY 12/2019 Last Documented On 0 1:57PM ; [facility] Education history 06/11/2020 Last Documented On 0 1:57PM ; [facility] In monogamous relationship 06/11/2020 Last Documented On 0 1:57PM ; [facility] No consumption of alcohol 06/11/2020 Last Documented On 0 1:57PM ; [facility] Non-smoker 06/11/2020 Last Documented On 0 1:57PM ; [facility] Personal history 06/11/2020 Last Documented On 0 1:57PM ; [facility] Sexually active 06/11/2020 Last Documented On 0 1:57PM ; [facility] Social history unchanged 06/11/2020 Last Documented On 0 1:57PM ; [facility] Smoking Status Unknown Procedures and Surgical History Surgical History Last Updated Surgical / procedural history gastric by pass 06/11/2020 Last Documented On 0 1:57PM ; [facility] Previous colposcopy 09/11/2015 Last Documented On 6 4:24PM ; [facility] History of tubal ligation 05/28/2014 Last Documented On 4 2:57PM ; [facility] Previous abnormal pap 12/25/2009 [facility] Last Documented On 3 11:12AM ; [facility] Medical History Includes: Medical History in patient's chart Description Last Updated History of acute gonorrhea 07/21/2020 Last Documented On 0 3:05PM ; [facility] LMP: 07/08/2020 07/21/2020 Last Documented On 0 3:05PM ; [facility] Result: normal 06/17/2020 Last Documented On 0 4:32PM ; [facility] History of Pap smear done 06/11/202006/2020 Last Documented On 0 4:32PM ; [facility] Vaginal delivery 09/11/2015 Last Documented On 6 4:24PM ; [facility] Sexually active 09/11/2015 Last Documented On 6 4:24PM ; [facility] Last pap smear date 05/28/2014 6 Last Documented On 6 4:24PM ; [facility] History of obesity 05/28/2014 Last Documented On 4 2:57PM ; [facility] No recent change in medical history 05/08 Last Documented On 4 2:57PM ; [facility] Contraception: BTL 05/28/2014 Last Documented On 4 2:57PM ; [facility] Result: abnormal ASCUS (-) HPV 4 Last Documented On 4 2:57PM ; [facility] Pt with 10/16/2012 LGSIL pap ~11/12/2012 colposcopy had no lesions seen to biopsy ~02/26/2013 normal pap with trich ~04/01/2013 no trich on wet prep 07/02/2013 Last Documented On 3 8:59AM ; [facility] Status post tubal ligation 2 012 done on 09/28/2011 at [facility] with open scope due to her size 11/12/2012 Last Documented On 3 11:11AM ; [facility] PRIMARY CARE PROVIDER : BRUCE 3 Last Documented On 3 11:12AM ; [facility] 4 09/01/2011 Last Documented On 2 11:29AM ; [facility] Para 4 09/01/2011 Last Documented On 2 11:29AM ; [facility] Recent 07/22/2011 Last Documented On 1 12:55PM ; [facility] Family History Includes: Family History in patient's chart Description Last Updated Paternal grandmother's histo ry of Family history of colon cancer -- paternal grand mother--- Dx'd in her 70's 09/11/2015 Last Documented On 6 4:24PM ; [facility] Paternal grandmother's histo ry of malignant neoplasm of large intestine PGM 09/11/2015 Last Documented On 6 4:24PM ; [facility] First child named Brenda 09/11/2015 Last Documented On 6 4:24PM ; [facility] Fourth child named Arnulfo 09/11/2015 Last Documented On 6 4:24PM ; [facility] Second child named Stanton 09/11/2015 Last Documented On 6 4:24PM ; [facility] Third child named Joycelyn 09/11/2015 Last Documented On 6 4:24PM ; [facility] Family history unchanged 05/28/2014 Last Documented On 4 2:57PM ; [facility] Family history of diabetes mellitus 05/08 Last Documented On 4 2:57PM ; [facility] Family history of malignant neoplasm of the large intestine PGM 05/28/2014 Last Documented On 4 2:57PM ; [facility] Family history of colon canc er -- paternal grand mother--- Dx'd in her 70's 10/16/2012 Last Documented On 3 11:12AM ; [facility] No Family history of cancer breast, uter ine, or ovarian 10/16/2012 Last Documented On 3 11:12AM ; [facility] Family history of hypercholesterolemia F AMILY HX OF 09/01/2011 Last Documented On 2 11:29AM ; [facility] Family history of hypertension FAMILY HX OF 09/01/2011 Last Documented On 2 11:29AM ; [facility] No family history of uterine cancer 08/08 Last Documented On 2 11:29AM ; [facility] No heart disease 09/01/2011 Last Documented On 2 11:29AM ; [facility] Review of Systems Review of Systems not [...] Active Last Documented On 0 2:55PM ; [facility] Insurance Includes: Active Insurance Policies Plan Name Member ID Group # Subscriber Relationship Effect amanuel Dates 1 - [facility] [id number] HUEY LOO Self Clinical Notes Includes: Signed Clinical Notes starting from 08/26/2022 No Clinical Notes Recorded
--- OUTSIDE RECORDS SUMMARY | 2024-09-23 17:56 | XMS_ITS | Clinical Summary ---
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
== END 2024-09-23 15:15 | disposition home or self-care (01) ==
PROVIDERS: PCP Physician Assistant; Visit Provider Nurse Practitioner Adult Health
DX: M51.360 Other intervertebral disc degeneration, lumbar region with discogenic back pain only (principal); M51.370 Other intervertebral disc degeneration, lumbosacral region with discogenic back pain only; M47.816 Spondylosis without myelopathy or radiculopathy, lumbar region
CPT/HCPCS: 72100

== ENCOUNTER 2024-10-17 15:52 | Outpatient (CLI) | payer BC, SELFPAY ==
--- NOTE | ~2024-10-17 | MR_ITS ---
MRI of the lumbar spine Clinical History: Back pain Technique: Axial T2-weighted images, and sagittal T1-weighted, T2-weighted, and T2 fat-sat images wer e acquired. Findings: There is no fracture or subluxation of the lumbar spine. Vertebral bodies maintain normal h eight and alignment. No bone marrow signal abnormality seen. At L1-L2, L2-L3, L3-L4, intervertebral discs are normal in signal and position. No disc bulge or camila iation at these levels. No spinal canal stenosis or neural foraminal narrowing at these levels. There is moderate facet arthropathy at these levels. At L4-L5, there is a large central disc extrusion, mildly compressing the ventral thecal sac. No laly k canal stenosis however. Neural foramina are preserved. L5-S1, there is no disc bulge or herniation. No spinal canal stenosis or neural foraminal narrowing. Paravertebral soft tissues are otherwise unremarkable. Impression: Large central disc extrusion at L4-L5 with minimal effacement of the ventral thecal sac, but no carla canal stenosis or neural foraminal narrowing. Reviewed, dictated and finalized at [facility]. Impression: Large central disc extrusion at L4-L5 with minimal effacement of the ventral th ecal sac, but no carla canal stenosis or neural foraminal narrowing.
== END 2024-10-17 15:53 | disposition home or self-care (01) ==
PROVIDERS: PCP Physician Assistant; Visit Provider Nurse Practitioner Adult Health
DX: M51.26 Other intervertebral disc displacement, lumbar region (principal); S34.109A Unspecified injury to unspecified level of lumbar spinal cord, initial encounter; X58.XXXA Exposure to other specified factors, initial encounter
CPT/HCPCS: 72148

== ENCOUNTER 2024-12-23 13:07 | Emergency (ER) | payer MEDICAID, SELFPAY ==
[2024-12-23 13:12] VITALS: BP 124/74; PULSE 73; RESP 16; TEMP 36.3; O2SAT 100
--- NOTE | 2024-12-23 16:02 | ED.SKABFB ---
HPI - Skin/Abscess/Foreign Bdy General Chief complaint: Skin/Abscess/Foreign Body Stated complaint: Sore Left Side Time Seen by Provider: 12/23/24 14:20 Source: patient and RN notes reviewed Mode of arrival: ambulatory Limitations: no limitations History of Present Illness HPI narrative: 47-year-old female presents Express Care complaining of possible abscess to her abdomen. Patient is unsure she was bit by a bug the patient's age notice increased redness and swelling left lateral abdomen approximately 2 days ago. Patient states since then the swelling and redness has gotten worse. She reports that is tender to palpate. 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 Patient denies any fevers, body aches, chills, recent abdominal surgery, abdominal pain, nausea, vomiting, diarrhea. Patient denies any significant past medical history. Patient stated was not initially draining but stopped yesterday. Related Data Home Medications Medication Instructions Recorded Confirmed Last Taken Type ibuprofen 800 mg tablet 800 mg PO TID 09/23/24 12/18/24 Unknown History Allergies Allergy/AdvReac Type Severity Reaction Status Date / Time No Known Allergies Allergy Verified 12/23/24 13:42 Review of Systems Review of Systems: CONSTITUTIONAL: Denies fever, chills, or sweats. EYES: Denies visual changes, redness, or discharge. ENT: Denies rhinorrhea, congestion, sore throat, or otalgia. CARDIOVASCULAR: Denies chest pain, palpitations, or edema. RESPIRATORY: Denies cough or dyspnea. GASTROINTESTINAL: Denies abdominal pain, nausea, vomiting, or diarrhea. GENITOURINARY: Denies dysuria or hematuria. SKIN: Denies rash or itching. Positive for wound MUSCULOSKELETAL: Denies back pain, joint pain, or myalgia. NEUROLOGIC: Denies headache, numbness, or weakness. PSYCHIATRIC: Denies anxiety or depression. All other systems reviewed are negative, except as documented in HPI. [facility] Past Medical History Medical History Anxiety Depression Diabetes Vertigo Vision loss Dizziness Chronic headaches Contusion of right hand Diabetes mellitus, type II Sleep apnea Surgical History Surgical History History of tonsillectomy Hx of tubal ligation Hx of cholecystectomy Family History Family History Father Diabetes mellitus Hypertension Grandparent Diabetes mellitus Heart disease Hypertension Grandparent Diabetes mellitus Hypertension Colon cancer Other Depression Social History Social History Smoking status: Never smoker Alcohol intake: current Alcohol use details: socially Substance use: never Substance use type: does not use Do You Feel Safe in your Home?: Yes Lack of Transportation: No Lack of Food: Never True Current Housing: I Have Housing Concerned About Future Housing: No Difficulty Paying Gas/Electric Bills: No Difficulty Paying for Meds: No Currently Unemployed: No Education: Bachelor's Degree Difficulty w/ Childcare or Family Care: No Living arrangements: alone Occupation/Education: occupation 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 There is no relevant family history pertinent to the patient complaint. Exam Narrative: GENERAL: This is a well-nourished, well-developed adult, in no apparent distress. They are non ill-appearing, nontoxic appearing. Patient is morbidly obese. Good exam limited due to large body habitus. HEAD: normocephalic, atraumatic. EYES: Sclera clear/white. Conjunctiva normal. Vision is grossly intact. Extraocular movements intact EARS: External ears normal, Hearing grossly intact. NOSE: External nose normal THROAT: Mucous membranes moist, Uvula midline. NECK: Neck supple, CARDIOVASCULAR: Regular rate and rhythm RESPIRATORY: Respiratory rate normal, respiratory effort nonlabored, no respiratory distress GASTROINTESTINAL: Abdomen is large, soft, non-tender, nondistended. Bowel sounds are active. No hepato-splenomegaly, or palpable masses. No guarding. SKIN: Left lateral abdomen: Area of erythema and swelling measuring approximately 5 cm x 5 cm. Central pustule to the swelling erythema. There is an area of fluctuance and induration surrounding the pustule. Surrounding cellulitis present. No discharge. NEURO: awake, alert, and oriented to person, place and time. There were no obvious focal neurologic abnormalities. EXTREMITIES: No joint tenderness, effusion, or edema noted. BACK: Nontender without deformity. Course Course Emergency Course: Portions of this record may have been created with voice recognition software Level of Care: Express Care Visit Vital Signs Vital signs: Vital Signs Temperature 97.4 F L 12/23/24 13:12 Pulse Rate 73 12/23/24 13:12 Respiratory Rate 16 12/23/24 13:12 Blood Pressure 124/74 12/23/24 13:12 Pulse Oximetry 100 12/23/24 13:12 Oxygen Delivery Room Air 12/23/24 13:12 Temperature 97.4 F L 12/23/24 13:12 Pulse Rate 73 12/23/24 13:12 Respiratory Rate 16 12/23/24 13:12 Blood Pressure 124/74 12/23/24 13:12 Pulse Oximetry 100 12/23/24 13:12 Oxygen Delivery Room Air 12/23/24 13:12 Reviewed Procedures Abscess I/D abdomen: Date of Incision: 12/23/24 Time of Incision: 14:30 Side (if applicable): left (Lateral mid abdomen) Local Anesthetic: lidocaine 1% Amount of anesthesia used (mL): 4 Technique: incised with #11 blade Amount of fluid expressed (mL): 10 Irrigation: No Packing used?: iodoform I&D Results: Pus, Blood and Other (Cystic) Abcess I&D Additional Comments: Patient tolerated procedure well. Iodoform placed approximately 2 inches of packing. Depth abscess measuring approximately 1 cm. Area of induration measuring approximately 3 cm x 3 cm. Gauze and tape applied over wound packing nursing staff. MDM - Skin/Abscess/Foreign Bdy MDM Narrative Medical decision making narrative: Abscess successfully drained. Wound culture obtained and pending. Given location and size, iodoform was placed inside for packing. Will treat empirically with Bactrim since she has a history of MRSA evidence of surrounding cellulitis to the abscess. Patient is unsure what caused the infection. Discussed physical exam findings. Advised supportive measures and signs/symptoms to go to the ER. Pt is appropriate for outpt treatment and f/u. Differential Diagnosis Differential diagnosis: Likely abscess of skin or subcutaneous tissue, cellulitis and insect bites Critical Care Time Critical Care Time Critical Care Time: No Discharge Plan Discharge Clinical Impression: Abscess of skin of abdomen Patient Disposition: Home Condition: Stable Instructions: Abscess (ED), Abscess Incision and Drainage (DC) Additional Instructions: DO NOT pick at the area. This will only make the area worse and drive infection deeper. Remove the packing in 48 hours keep it covered in dry until the packing is removed. Then you may shower and wash it daily with mild soap and water. Continue to cover the wound with a dry dressing until it has healed and a stopped draining. A wound culture was obtained you will be contacted if antibiotics need to be changed at the antibiotics are ineffective to the culture results. Take all the antibiotics as prescribed. Follow up with PCP in 3-5 days. If your symptoms worsen when he developed worsening swelling, pain, drainage, fevers, or any other concerns please go to the ER immediately. Patient Language: Kinyarwanda Prescriptions: New sulfamethoxazole-trimethoprim [Bactrim DS] 800-160 mg tablet 1 tablet PO Q12H 7 Days Qty: 14 0RF No Action ibuprofen 800 mg tablet 800 mg PO TID gabapentin 300 mg capsule 300 mg PO QHS Qty: 30 1RF Follow-up/Referrals: PHYSICIAN,FIELD CARE MANAGER [Primary Care Provider] - Time of Disposition: 14:56
== END 2024-12-23 15:12 | disposition home or self-care (01) ==
DX: L02.211 Cutaneous abscess of abdominal wall (principal); E11.9 Type 2 diabetes mellitus without complications; Z86.14 Personal history of Methicillin resistant Staphylococcus aureus infection
CPT/HCPCS: 10060; 87070; 87075; 87181; 87205; 99213; G0463